=== PATIENT | female | born 1985 ===

== ENCOUNTER 2020-03-17 09:11 | Outpatient (REF) | payer OTHER, SELFPAY ==
[2020-03-17 15:02] LABS: CT PCR NOT DETECTED (Not Detect.); NG PCR NOT DETECTED (Not Detect.)
[2020-03-18 08:46] LABS: BV Int Neg Control Negative (Negative); BV Int Pos Control Positive (Positive)
== END 2020-03-17 09:12 | disposition home or self-care (01) ==
LOC: HO.LAB 09:11
PROVIDERS: Visit Provider Advanced Practice Midwife
DX: N76.0 Acute vaginitis (principal); Z20.2 Contact with and (suspected) exposure to infections with a predominantly sexual mode of transmission
CPT/HCPCS: 87480; 87491; 87510; 87591; 87660; 99212

== ENCOUNTER 2020-04-05 13:44 | Outpatient (REF) | payer OTHER, SELFPAY | END 2020-04-05 13:45 | disposition home or self-care (01) | LOC: HO.LAB 13:44 | PROVIDERS: Visit Provider Internal Medicine | DX: Z20.828 Contact with and (suspected) exposure to other viral communicable diseases (principal) | CPT/HCPCS: C9803; U0003 ==

== ENCOUNTER → 2020-08-20 12:05 | Outpatient (BNVA) | payer OTHER, SELFPAY | PROVIDERS: PCP Nurse Practitioner Family; Visit Provider Obstetrics & Gynecology | DX: Z30.09 Encounter for other general counseling and advice on contraception (principal); N76.0 Acute vaginitis | CPT/HCPCS: 99202 ==

== ENCOUNTER → 2020-08-23 11:00 | Outpatient (BNVA) | payer OTHER, SELFPAY | PROVIDERS: PCP Nurse Practitioner Family; Visit Provider Obstetrics & Gynecology | DX: Z30.42 Encounter for surveillance of injectable contraceptive (principal) | CPT/HCPCS: 96372; 99211; J1050 ==

== ENCOUNTER 2020-09-28 08:55 | Outpatient (REF) | payer OTHER, SELFPAY ==
[2020-09-29 11:24] LABS: BV Int Neg Control Negative (Negative); BV Int Pos Control Positive (Positive)
[2020-09-29 12:05] LABS: CT PCR NOT DETECTED (Not Detect.); NG PCR NOT DETECTED (Not Detect.)
[2020-10-02 09:57] LABS: HPV mRNA E6/E7 rflx Not Detected (Not Detected)
== END 2020-09-28 08:56 | disposition home or self-care (01) ==
LOC: HO.LAB 08:55
PROVIDERS: PCP Nurse Practitioner Family; Visit Provider Obstetrics & Gynecology
DX: Z01.419 Encounter for gynecological examination (general) (routine) without abnormal findings (principal); Z11.3 Encounter for screening for infections with a predominantly sexual mode of transmission; Z11.51 Encounter for screening for human papillomavirus (HPV); Z71.6 Tobacco abuse counseling
CPT/HCPCS: 87480; 87491; 87510; 87591; 87624; 87660; 88142

== ENCOUNTER → 2020-11-03 10:30 | Outpatient (BNVA) | payer OTHER, SELFPAY | PROVIDERS: PCP Nurse Practitioner Family; Visit Provider Obstetrics & Gynecology | DX: N63.12 Unspecified lump in the right breast, upper inner quadrant (principal); F17.210 Nicotine dependence, cigarettes, uncomplicated; Z98.51 Tubal ligation status | CPT/HCPCS: 99212 ==

== ENCOUNTER → 2020-11-09 10:43 | Outpatient (BNVA) | payer OTHER, SELFPAY | PROVIDERS: PCP Nurse Practitioner Family; Visit Provider Obstetrics & Gynecology ==

== ENCOUNTER 2021-01-03 08:58 | Outpatient (REF) | payer OTHER, SELFPAY ==
--- NOTE | ~2021-01-03 | MM_ITS ---
EXAMINATION: MM DIAGNOSTIC DIGITAL BREAST TOMOSYNTHESIS, BILATERAL US DIAGNOSTIC ULTRASOUND BREAST, BILATERAL CLINICAL INFORMATION: 35-year-old with recent palpable fullness upper inner right breast, now resolved. No prior breast imaging. No known family history breast cancer. The lifetime risk of breast cancer based on the Tyrer-Cuzick Model is 9%. COMPARISON: None (current study represents initial baseline exam). TECHNIQUE: Digital breast tomosynthesis is performed in both the craniocaudal and mediolateral oblique views along with computer-aided detection (CAD). Synthesized 2D images are generated from the tomosynthesis. Additional views are obtained: Bilateral exaggerated CC, magnification right CC x2, magnification right ML. Ultrasound of each breast is performed using grayscale imaging and color Doppler without and with harmonics. Imaging left breast is targeted to the upper outer quadrants. Imaging right breast is targeted to the upper inner quadrant and outer quadrant. FINDINGS: The breasts are heterogeneously dense, which may obscure small masses (ACR BI-RADS breast composition Category c). There is underlying fibrocystic parenchymal pattern with scattered benign-appearing small scattered rounded areas of benign parenchymal asymmetry. There is no architectural abnormality. The axilla and skin contours are unremarkable. There is dominant nodularity mid upper outer left breast best appreciated on tomography measuring approximately 1.3 cm with smooth partly obscured margins. There is dominant nodularity mid outer right breast approximately 1.2 cm with smooth partly obscured margins. There are scattered calcifications in both breasts. The left calcifications are scattered and lesser in number predominantly upper outer quadrant and appear benign. The right breast calcifications are greater number, benign scattered in the retroareolar and upper outer quadrant with loose grouping posterior upper inner right breast. Additional magnification views show calcifications to be similar uniform punctate round and many show benign layering on the ML view. There is one benign square calcification upper inner quadrant. Ultrasound left breast demonstrates dominant simple cyst 2:00 position 6 cm from nipple measuring 1.9 by 1.7 x 1.1 cm. There are scattered other subcentimeter cysts in the targeted area. No solid mass or architectural abnormality. Ultrasound right breast demonstrates a dominant simple cyst 9:00 position 4 cm from nipple measuring 1.4 x 1.1 x 0.9 cm. There are other smaller scattered subcentimeter cysts in the targeted areas. No solid mass or architectural abnormality. Results are discussed with the patient at time of visit. There are benign fibrocystic changes with unremarkable cysts on targeted ultrasound. The right breast calcifications are more numerous, likely benign given the magnification views and bilateral involvement. Right breast calcifications will be reassessed again in 6 months with diagnostic right mammography. MM/MM tomosynthesis diagnostic BI IMPRESSION: 1. Bilateral fibrocystic changes. Bilateral simple cysts on ultrasound. 2. Probable benign calcifications right breast. Benign calcifications on left. ASSESSMENT: BI-RADS 3: Probably Benign RECOMMENDATION: Diagnostic right mammography in 6 months to include magnification views. This patient's information was entered into a reminder system with a target due date for their next mammogram.
--- NOTE | ~2021-01-03 | XR_ITS ---
EXAMINATION: XR FINGER, RIGHT CLINICAL INFORMATION: Pain in right finger COMPARISON: None TECHNIQUE: 3 views of the right fourth finger. FINDINGS: There is no visible fracture or dislocation. There is no subluxation. There is minimal dorsal PIP joint soft tissue swelling.. XR/XR finger RT min 2V IMPRESSION: Unremarkable right fourth finger exam except for minimal dorsal PIP joint fourth digit soft tissue swelling
== END 2021-01-03 08:59 | disposition home or self-care (01) ==
LOC: HO.MAMMO 08:58
PROVIDERS: PCP Nurse Practitioner Family; Referring Provider Hospitalist; Visit Provider Obstetrics & Gynecology
DX: M79.644 Pain in right finger(s) (principal); N64.89 Other specified disorders of breast
CPT/HCPCS: 73140; 76642; 77062; 77066

== ENCOUNTER → 2021-02-28 15:33 | Outpatient (BNVA) | payer OTHER, SELFPAY | PROVIDERS: Visit Provider Advanced Practice Midwife ==

== ENCOUNTER 2021-03-05 01:30 | Emergency (ER) | payer OTHER, SELFPAY ==
[2021-03-05 01:41] VITALS: BP 122/49; PULSE 91; RESP 16; TEMP 37; O2SAT 94; BMI 26.2
--- NOTE | 2021-03-05 01:58 | ED_ITS ---
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 Patient states her complaints started 5 months ago. Also, patient has noted that she has more bilateral lower extremity edema. Patient denies chest pain, no shortness of breath Related Data Previous Rx's Medication Instructions Recorded metronidazole 500 mg tablet 500 mg PO BID 14 Days #28 tab 03/17/20 (Flagyl) medroxyprogesterone 150 mg/mL 150 mg IM [id number] #1 ml 08/20/20 intramuscular suspension metronidazole 500 mg tablet 500 mg PO BID #10 tab 08/20/20 metronidazole 500 mg tablet 500 mg PO .COMPLEX #48 tab 09/28/20 metronidazole 500 mg tablet 500 mg PO BID 7 Days #14 tab 09/30/20 (Flagyl) nicotine 14 mg/24 hr daily 1 patch TRANSDERMAL Q24H #28 ea 11/09/20 transdermal patch dexamethasone 4 mg tablet 4 mg PO .COMPLEX #18 tab 01/03/21 acyclovir 400 mg tablet 400 mg PO TID 7 Days #21 tab 02/25/21 metronidazole 500 mg tablet 500 mg PO Q12H 7 Days #14 tab 02/28/21 Allergies Allergy/AdvReac Type Severity Reaction Status Date / Time No Known Allergies Allergy Verified 02/28/21 15:34 Review of Systems Review of Systems: Constitutional : No Weight loss, No Fever, No Chills, No Night Sweats, No Fatigue, No Malaise ENT/Mouth : No Hearing loss, No Ear Pain, No Nasal Congestion, No Sinus Pain, No Hoarseness, No sore throat, No Rhinorrhea, No Swallowing Difficulty Eyes: No Eye Pain, No Swelling, No Redness, No Foreign Body, No Discharge, No Vision Changes Cardiovascular : No Chest Pain, No SOB, No Dyspnea on Exertion, No Orthopnea, No Edema, No Palpitations Respiratory : No Cough, No Sputum, No Wheezing, No Smoke Exposure, No Dyspnea Gastrointestinal : No Nausea, No Vomiting, No Diarrhea, No Constipation, No abdominal Pain, No Hematochezia, No Melena Genitourinary : no irregular bleeding, No Dysuria, No Urinary Frequency, No H ematuria, No Urinary Incontinence, No Urgency, No Flank Pain, No Urinary Flow Changes, No Hesitancy Musculoskeletal : Chronic bilateral hand and arm pain, chronic bilateral lower extremity pain, lower extremity bilateral edema, complaining of Myalgias in arms and legs for 5 months No Joint Swelling Skin : No Skin Lesions, No rash Neuro : No Weakness, No Numbness, No Paresthesias, No Loss of Consciousness, No Dizziness, No Headache Psych : No Anxiety/Panic, No Depression, No SI/HI/AH/VH, No Social Issues, Heme/Lymph: No Bruising, No Bleeding,No Lymphadenopathy Endocrine : No Polyuria, No Polydipsia, No Temperature Intolerance PMFSH Past Medical History Medical History Abnormal uterine bleeding (AUB) Hx of abnormal cells from cervix Hx of Western blot negative for herpes simplex virus Numbness and tingling in both hands Surgical History Hx of section Hx of tubal ligation Family History Family History Father Rectal cancer Mother History of fibromyalgia Diabetes mellitus Maternal Grandmother Diabetes mellitus Abdominal aortic aneurysm Rheumatoid arthritis Paternal Aunt Cervical cancer Social History Social History Alcohol intake: current Alcohol intake frequency: a few times a month Cigarettes Per Day: 10 Advance Directives: No Patient : No Gender identity: Female Physical Exam Vital Signs: Vital Signs: Last Vital Signs Temp 98.6 F 03/05/21 01:41 Pulse 91 03/05/21 01:41 Resp 16 03/05/21 01:41 BP 122/49 L 03/05/21 01:41 Pulse Ox 94 03/05/21 01:41 Body Mass Index 26.2 Const: Other: Appearance: Alert. Oriented X3. No acute distress. Eyes: Pupils equal, round and reactive to light. ENT: Pharynx normal. Neck: Normal inspection. Neck supple. No lymph nodes noted. No crepitus CVS: Normal heart rate and rhythm. Pulses normal. Normal S1 and S2 Respiratory: No respiratory distress. Breath sounds normal. No Wheezing. No rales Abdomen: Soft and nontender. No rigidity. No distention. good BS x4 Skin: Skin warm and dry. Normal skin color. Normal skin turgor. Extremities: Bilateral +1 pitting edema No Lacerations. No Rash, patient is able to move all extremities with normal range of motion Neuro: Oriented X 3. No motor deficit. No sensory deficit. Moving all extermities. No slurred speech. Course Course Course Narrative: Discussed the labs with the patient, no acute findings. I discussed with the patient that she would benefit from a referral to Rheumatology. Patient requested an IM injection of Toradol. Patient instructed not to take ibuprofen for the next 4 days Medical Decision Making Lab Data Result diagrams: 03/05/21 01:58 03/05/21 01:58 Labs: Lab Results 03/05/21 03/05/21 03/05/21 Range/Units 01:58 01:58 01:58 WBC 6.7 (4.8-10.8) X10*3/uL RBC 3.91 L (4.20-5.50) X10*6/uL Hgb 11.3 L (12.0-16.0) g/dl Hct 34.7 L (37-47) % MCV 88.7 (80-98) fL MCH 28.9 (27.0-33.0) pg MCHC 32.6 (31.0-35.0) g/dl RDW 12.0 (11.0-16.0) % Plt Count 264 (160-400) X10*3/uL MPV 10.5 (9.4-12.3) fL Immature Gran % (Auto) 0.3 (0.0-0.4) % Neut % (Auto) 59.3 (45-73) % Lymph % (Auto) 27.4 (20-40) % [place] % (Auto) 11.9 H (2-11) % Eos % (Auto) 1.0 (0-4) % Baso % (Auto) 0.1 (0-2) % Lymph # (Auto) 1.9 (1.2-4.9) X10*3/uL [place] # (Auto) 0.8 (0.1-1.2) X10*3/uL Eos # (Auto) 0.1 (0.0-0.4) X10*3/uL Baso # (Auto) 0.0 (0.0-0.2) X10*3/uL Abs Immat Gran (auto) 0.02 (0.00-0.03) X10*3/uL Absolute Neuts (auto) 4.0 (2.0-8.3) X10*3/uL Absolute Nucleated RBC 0.000 (0.0-0.012) X10*3/uL Nucleated RBC % (auto) 0.0 (0.0-0.2) /100WBC ESR 18 (0-20) MM/HR Sodium 137 (135-145) mmol/L Potassium 3.9 (3.3-5.1) mmol/L Chloride 105 (96-108) mmol/L Carbon Dioxide 24 (22-29) mmol/L Anion Gap 12 (12-20) BUN 12 (9-16) mg/dL Creatinine 0.67 (0.5-1.4) mg/dL Estim Creat Clear Calc 116.3 Estimated GFR > 60 Random Glucose 113 (60-115) mg/dL Calcium 9.1 (8.4-10.2) mg/dL Total Bilirubin 0.2 (0.0-1.0) mg/dL Direct Bilirubin < 0.2 (0.0-0.5) mg/dL AST 36 H (5-31) U/L ALT 67 H (0-31) U/L Alkaline Phosphatase 49 (39-117) U/L C-Reactive Protein 0.22 (< or = 0.50) mg/dL B-Natriuretic Peptide (<100) pg/mL Total Protein 5.9 L (6.5-8.0) g/dL Albumin 3.7 (3.5-5.0) g/dL 03/05/21 Range/Units 01:58 WBC (4.8-10.8) X10*3/uL RBC (4.20-5.50) X10*6/uL Hgb (12.0-16.0) g/dl Hct (37-47) % MCV (80-98) fL MCH (27.0-33.0) pg MCHC (31.0-35.0) g/dl RDW (11.0-16.0) % Plt Count (160-400) X10*3/uL MPV (9.4-12.3) fL Immature Gran % (Auto) (0.0-0.4) % Neut % (Auto) (45-73) % Lymph % (Auto) (20-40) % [place] % (Auto) (2-11) % Eos % (Auto) (0-4) % Baso % (Auto) (0-2) % Lymph # (Auto) (1.2-4.9) X10*3/uL [place] # (Auto) (0.1-1.2) X10*3/uL Eos # (Auto) (0.0-0.4) X10*3/uL Baso # (Auto) (0.0-0.2) X10*3/uL Abs Immat Gran (auto) (0.00-0.03) X10*3/uL Absolute Neuts (auto) (2.0-8.3) X10*3/uL Absolute Nucleated RBC (0.0-0.012) X10*3/uL Nucleated RBC % (auto) (0.0-0.2) /100WBC ESR (0-20) MM/HR Sodium (135-145) mmol/L Potassium (3.3-5.1) mmol/L Chloride (96-108) mmol/L Carbon Dioxide (22-29) mmol/L Anion Gap (12-20) BUN (9-16) mg/dL Creatinine (0.5-1.4) mg/dL Estim Creat Clear Calc Estimated GFR Random Glucose (60-115) mg/dL Calcium (8.4-10.2) mg/dL Total Bilirubin (0.0-1.0) mg/dL Direct Bilirubin (0.0-0.5) mg/dL AST (5-31) U/L ALT (0-31) U/L Alkaline Phosphatase (39-117) U/L C-Reactive Protein (< or = 0.50) mg/dL B-Natriuretic Peptide 13 (<100) pg/mL Total Protein (6.5-8.0) g/dL Albumin (3.5-5.0) g/dL Discharge Plan Discharge Clinical Impression: Bilateral lower extremity edema, Myalgia Patient Disposition: Home, Self-Care Instructions: Leg Edema (ED), Musculoskeletal Pain (ED) Additional Instructions: Please buy [id number] compression stockings and wear them as long as you can, especially when you are at work. At night to try to keep your legs elevated. Please follow-up with her primary care physician, you may benefit from a referral to Rheumatology. Please follow-up with your primary care physician tomorrow. If you have any worsening or new symptoms, please return to the emergency room or call 911 Prescriptions: No Action metronidazole [Flagyl] 500 mg tablet 500 mg PO BID 7 Days Qty: 14 RF: 0 acyclovir 400 mg tablet 400 mg PO TID 7 Days Qty: 21 RF: 0 dexamethasone 4 mg tablet 4 mg PO .COMPLEX Qty: 18 RF: 0 metronidazole [Flagyl] 500 mg tablet 500 mg PO BID 14 Days Qty: 28 RF: 1 metronidazole 500 mg tablet 500 mg PO .COMPLEX Qty: 48 RF: 1 medroxyprogesterone 150 mg/mL suspension 150 mg IM [id number] Qty: 1 RF: 3 metronidazole 500 mg tablet 500 mg PO BID Qty: 10 RF: 0 nicotine 14 mg/24 hr patch 24 hour 1 patch transdermal Q24H Qty: 28 RF: 0 metronidazole 500 mg tablet 500 mg PO Q12H 7 Days Qty: 14 RF: 0
[2021-03-05 02:03] LABS: MANUAL DIFF FLAG NO
[2021-03-05 02:21] LABS: Basophils Percent Auto 0.1 % (0-2); Eosinophils Absolute Auto 0.1 X10*3/uL (0.0-0.4); Hematocrit 34.7 % (37-47); Hemoglobin 11.3 g/dl (12.0-16.0); Imm Gran Abs Auto 0.02 X10*3/uL (0.00-0.03); Imm Gran Pct Auto 0.3 % (0.0-0.4); Lymphocytes Absolute Auto 1.9 X10*3/uL (1.2-4.9); Lymphocytes Percent Auto 27.4 % (20-40); Mean Corpuscular HGB Conc 32.6 g/dl (31.0-35.0); Mean Corpuscular Hemoglobin 28.9 pg (27.0-33.0); Mean Corpuscular Volume 88.7 fL (80-98); Mean Platelet Volume 10.5 fL (9.4-12.3); Monocytes Absolute Auto 0.8 X10*3/uL (0.1-1.2); Monocytes Percent Auto 11.9 % (2-11); Neutrophils Percent Auto 59.3 % (45-73); Platelet Count 264 X10*3/uL (160-400); Red Blood Count 3.91 X10*6/uL (4.20-5.50); White Blood Count 6.7 X10*3/uL (4.8-10.8)
[2021-03-05 02:40] LABS: Alanine Aminotransferase 67 U/L (0-31); Albumin Level 3.7 g/dL (3.5-5.0); Alkaline Phosphatase 49 U/L (39-117); Anion Gap 12 (12-20); Aspartate Amino Transferase 36 U/L (5-31); Bilirubin Direct < 0.2 mg/dL (0.0-0.5); Bilirubin Total 0.2 mg/dL (0.0-1.0); Blood Urea Nitrogen 12 mg/dL (9-16); C Reactive Protein 0.22 mg/dL (< or = 0.50); Calcium 9.1 mg/dL (8.4-10.2); Carbon Dioxide 24 mmol/L (22-29); Chloride 105 mmol/L (96-108); Creatinine Clr Calc Pharmacy 116.3; Estimated Glomerular Filt Rate > 60; Glucose Random 113 mg/dL (60-115); Potassium 3.9 mmol/L (3.3-5.1); Sodium 137 mmol/L (135-145); Total Protein 5.9 g/dL (6.5-8.0)
[2021-03-05 02:41] LABS: B Type Natriuretic Peptide 13 pg/mL (<100)
[2021-03-05 03:06] LABS: Erythrocyte Sedimentation Rate 18 MM/HR (0-20)
[2021-03-05] MEDS: Ketorolac Tromethamine 60 MG/2 ML VIAL IM (03:22)
[2021-03-05 03:25] VITALS: BP 106/47; PULSE 71; RESP 16; TEMP 36.7; O2SAT 100
[2021-03-07 21:42] LABS: Lyme Blot 1.07 index
[2021-03-08 11:04] LABS: Lyme Abs Screen EQUIVOCAL
[2021-03-10 13:36] LABS: 18 KD (IgG) Band NON-REACTIVE; 23 KD (IgG) Band NON-REACTIVE; 23 KD (IgM) Band NON-REACTIVE; 28 KD (IgG) Band REACTIVE; 30 KD (IgG) Band NON-REACTIVE; 39 KD (IgM) Band NON-REACTIVE; 41 KD (IgM) Band NON-REACTIVE; 45 KD (IgG) Band NON-REACTIVE; 58 KD (IgG) Band REACTIVE; 66 KD (IgG) Band NON-REACTIVE; 93 KD (IgG) Band REACTIVE; Lyme IgG Blot Interp POSITIVE (NEGATIVE); Lyme IgM Blot Interp NEGATIVE (NEGATIVE)
== END 2021-03-05 03:43 | disposition home or self-care (01) ==
PROVIDERS: Emergency Provider Emergency Medicine; PCP Nurse Practitioner Family
DX: R60.0 Localized edema (principal); M79.10 Myalgia, unspecified site; Z79.899 Other long term (current) drug therapy
CPT/HCPCS: 36415; 80048; 80076; 83880; 85025; 85652; 86140; 86617; 86618; 96372; 99284; J1885

== ENCOUNTER 2021-03-16 08:57 | Outpatient (REF) | payer OTHER, SELFPAY ==
--- NOTE | 2021-03-16 08:59 | EMG_ITS ---
This is a 35-year-old woman with a 6-month history of increased symptoms in both hands of pain and tingling. She is on no medications. PHYSICAL EXAMINATION: On examination, she is alert and oriented. Normal intellectual functions. Cranial nerves II through XII are normal. Muscle tone and strength normal. No Tinel or Phalen sign. IMPRESSION: Rule out carpal tunnel syndrome. Nerve conduction EMG study: Normal electrodiagnostic study of both upper extremities with no evidence of carpal tunnel syndrome or nerve entrapment. Normal EMG of left C5-T1 innervated muscles. MD MAXX He/SRIRAM / [id number]
== END 2021-03-16 08:58 | disposition home or self-care (01) ==
LOC: HO.NEURO 08:57
PROVIDERS: Visit Provider Nurse Practitioner Family
DX: R20.0 Anesthesia of skin (principal); R20.2 Paresthesia of skin
CPT/HCPCS: 95885; 95913

== ENCOUNTER 2021-04-12 14:39 | Outpatient (REF) | payer OTHER, SELFPAY ==
--- NOTE | ~2021-04-12 | CT_ITS ---
EXAMINATION: CT ABDOMEN AND PELVIS WITH CONTRAST CLINICAL INFORMATION: Abnormal uterine and vaginal bleeding. COMPARISON: None TECHNIQUE: Multidetector volumetric images were obtained from the superior aspect of the liver through the pubic symphysis following administration 85 mL of Omnipaque 350 intravenous contrast. Sagittal and coronal reformatted images were obtained on the technologist's workstation. Oral contrast: No This CT examination was performed using dose optimization techniques as appropriate, variously including the following: *Automated exposure control *Adjustment of mA and/or kV according to patient size (this includes techniques or standardized protocols for targeted exams where dose is matched to indication/reason for exam; i.e. extremities or head) *Use of iterative reconstruction technique DLP: 502 mGy-cm FINDINGS: LUNG BASES: The visualized lung bases are unremarkable. LIVER, GALLBLADDER, AND BILIARY TREE: The liver is normal in size, shape, and attenuation. No focal hepatic lesion or biliary ductal dilatation is present. The gallbladder is contracted and appears unremarkable. PANCREAS: Unremarkable. SPLEEN: The spleen is unremarkable. There is a small accessory splenule below the hilum. ADRENAL GLANDS: Unremarkable. KIDNEYS AND URETERS: The kidneys are normal in size, shape, and attenuation. No hydronephrosis, hydroureter, or calculi seen. No perinephric stranding. BLADDER: Unremarkable. GASTROINTESTINAL TRACT: There is scattered stool and gas seen throughout the colon without any significant distention. There is fecalization of the distal ileum, nonspecific but felt to be due to stasis. Appendix is not visualized. No inflammatory process is seen in the abdomen. ABDOMINAL WALL: No significant hernia is appreciated. LYMPH NODES: Normal. VASCULAR: Unremarkable. PELVIC VISCERA: The uterus is anteverted with dense calcification or jason along the left fundus. There is a 3.0 x 2.2 cm cyst of the left ovary. OSSEOUS STRUCTURES: Unremarkable. CT/CT abdomen pelvis w con IMPRESSION: 3 cm cyst, left ovary. Surgical jason are on top of the left uterine fundus, question previous intervention. Moderate constipation.
[2021-04-12] MEDS: iohexoL 350 MG/ML 100 ML INFUS..BTL IV (16:03)
== END 2021-04-12 14:40 | disposition home or self-care (01) ==
LOC: HO.CT 14:39
PROVIDERS: Visit Provider Advanced Practice Midwife
DX: N93.9 Abnormal uterine and vaginal bleeding, unspecified (principal)
CPT/HCPCS: 74177; Q9967

== ENCOUNTER 2021-04-18 09:06 | Outpatient (REF) | payer OTHER, SELFPAY ==
[2021-04-18 11:45] LABS: MANUAL DIFF FLAG NO
[2021-04-18 11:50] LABS: Basophils Percent Auto 0.3 % (0-2); Eosinophils Absolute Auto 0.1 X10*3/uL (0.0-0.4); Hematocrit 38.4 % (37.0-47.0); Hemoglobin 12.2 g/dl (12.0-16.0); Imm Gran Abs Auto 0.02 X10*3/uL (0.00-0.03); Imm Gran Pct Auto 0.3 % (0.0-0.4); Lymphocytes Absolute Auto 1.6 X10*3/uL (1.2-4.9); Lymphocytes Percent Auto 26.1 % (20-40); Mean Corpuscular HGB Conc 31.8 g/dl (31.0-35.0); Mean Corpuscular Volume 88.3 fL (80.0-98.0); Mean Platelet Volume 11.5 fL (9.4-12.3); Monocytes Absolute Auto 0.5 X10*3/uL (0.1-1.2); Monocytes Percent Auto 7.4 % (2-11); Neutrophils Percent Auto 64.9 % (45-73); Platelet Count 296 X10*3/uL (160-400); Red Blood Count 4.35 X10*6/uL (4.20-5.50); Red Cell Distribution Width 12.3 % (11.0-16.0); White Blood Count 6.2 X10*3/uL (4.8-10.8)
[2021-04-18 12:17] LABS: Alanine Aminotransferase 30 U/L (0-31); Alkaline Phosphatase 60 U/L (39-117); Anion Gap 12 (12-20); Aspartate Amino Transferase 18 U/L (5-31); Bilirubin Total 0.3 mg/dL (0.0-1.0); Blood Urea Nitrogen 18 mg/dL (9-16); C Reactive Protein 0.85 mg/dL (< or = 0.50); Calcium 9.6 mg/dL (8.4-10.2); Carbon Dioxide 23 mmol/L (22-29); Chloride 108 mmol/L (96-108); Estimated Glomerular Filt Rate > 60; Glucose Fasting 91 mg/dL (60-99); Potassium 4.7 mmol/L (3.3-5.1); Sodium 138 mmol/L (135-145); Total Protein 6.8 g/dL (6.5-8.0)
[2021-04-18 12:29] LABS: Erythrocyte Sedimentation Rate 23 MM/HR (0-20)
[2021-04-18 12:38] LABS: Vitamin B12 189 pg/mL (200-900)
[2021-04-18 12:39] LABS: Rheumatoid Factor < 15.0 IU/mL (<15.0); TSH reflex Free T4 0.01 uIU/mL (0.32-4.0)
[2021-04-18 13:30] LABS: Free T4 (Free Thyroxine) 0.85 ng/dL (0.71-1.85)
[2021-04-20 12:57] LABS: Anti Nuclear Antibody Screen NEGATIVE (NEGATIVE)
[2021-04-21 03:42] LABS: Cyclic Citrullinated Peptide <16 UNITS
== END 2021-04-18 09:07 | disposition home or self-care (01) ==
LOC: HO.HMGCLDS 09:06
PROVIDERS: PCP Nurse Practitioner Family; Visit Provider Nurse Practitioner Family
DX: R20.0 Anesthesia of skin (principal); R20.2 Paresthesia of skin
CPT/HCPCS: 36415; 80053; 82607; 82746; 84439; 84443; 85025; 85652; 86038; 86039; 86140; 86200; 86431

== ENCOUNTER 2021-04-19 09:16 | Outpatient (REF) | payer OTHER, SELFPAY ==
[2021-04-19 12:35] LABS: Free T4 (Free Thyroxine) 0.86 ng/dL (0.71-1.85); Thyroid Stimulating Hormone 0.01 uIU/mL (0.32-4.0)
[2021-04-21 05:31] LABS: Triiodothyronine T3 Free 3.7 pg/mL (2.3-4.2)
[2021-04-21 05:40] LABS: Thyroid Peroxidase Antibodies 249 IU/mL (<9)
[2021-04-23 19:07] LABS: Thyrotropin Receptor Antibody 15.68 IU/L (<=2.00)
[2021-04-23 23:47] LABS: Methylmalonic Acid 195 nmol/L (87-318)
[2021-04-23 23:50] LABS: Parietal Cell Antibody 100.9 Unit (<=20.0)
[2021-04-24 22:26] LABS: Intrinsic Factor Antibodies Equivocal (Negative)
== END 2021-04-19 09:17 | disposition home or self-care (01) ==
LOC: HO.HMGCLDS 09:16
PROVIDERS: PCP Nurse Practitioner Family; Visit Provider Nurse Practitioner Family
DX: R10.2 Pelvic and perineal pain (principal); R79.89 Other specified abnormal findings of blood chemistry; E53.8 Deficiency of other specified B group vitamins; G89.29 Other chronic pain; N83.202 Unspecified ovarian cyst, left side
CPT/HCPCS: 36415; 83516; 83520; 83921; 84439; 84443; 84481; 86340; 86376

== ENCOUNTER 2021-06-05 14:29 | Emergency (ER) | payer OTHER, SELFPAY ==
[2021-06-05 14:50] VITALS: BP 141/62; PULSE 88; TEMP 36.8; O2SAT 97; BMI 27.1
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
[2021-06-05] MEDS: Ibuprofen 800 MG TABLET PO (15:44)
== END 2021-06-05 15:51 | disposition home or self-care (01) ==
PROVIDERS: Emergency Provider Emergency Medicine; PCP Nurse Practitioner Family
DX: T25.212A Burn of second degree of left ankle, initial encounter (principal); T31.0 Burns involving less than 10% of body surface; M25.572 Pain in left ankle and joints of left foot; X11.8XXA Contact with other hot tap-water, initial encounter; Y93.9 Activity, unspecified; Y92.9 Unspecified place or not applicable; Y99.9 Unspecified external cause status; Z79.899 Other long term (current) drug therapy
CPT/HCPCS: 16020; 99283

== ENCOUNTER 2021-07-04 11:14 | Outpatient (REF) | payer OTHER, SELFPAY ==
--- NOTE | ~2021-07-04 | US_ITS ---
EXAMINATION: US PELVIS CLINICAL INFORMATION: Left ovarian cyst COMPARISON: Previous pelvic ultrasound April [address] of the abdomen and pelvis March 2021 TECHNIQUE: Ultrasound of the pelvis is performed using both transabdominal and transvaginal transducers along with Doppler. Transvaginal imaging is performed due to inadequate visualization transabdominally. FINDINGS: The uterus is anteverted and measures 6.4 x 3.3 x 4.1 cm in dimension. There are parallel linear echogenic densities seen in the peripheral bilateral uterine fundus likely related to Essure device. No focal uterine lesion is seen. Endometrial thickness is normal measuring 0.3 cm. The ovaries are normal-appearing. The right ovary measures 4.5 x 1.9 x 2.2 cm. The left ovary measures 3.4 x 1.3 x 3.2 cm. No ovarian cyst is seen. There is no fluid in the pelvis. US/US pelvic and transvaginal IMPRESSION: No ovarian cyst seen.
== END 2021-07-04 11:15 | disposition home or self-care (01) ==
LOC: HO.US 11:14
PROVIDERS: Visit Provider Advanced Practice Midwife
DX: N83.202 Unspecified ovarian cyst, left side (principal)
CPT/HCPCS: 76830; 76856

== ENCOUNTER 2021-07-08 12:14 | Outpatient (REF) | payer OTHER, SELFPAY ==
--- NOTE | ~2021-07-08 | MM_ITS ---
EXAMINATION: MM DIAGNOSTIC DIGITAL BREAST TOMOSYNTHESIS, BILATERAL CLINICAL INFORMATION: Six-month follow-up right breast calcifications. At time of study the patient complained of left breast pain prior to the examination. The lifetime risk of breast cancer based on the Tyrer-Cuzick Model is 9.7%. COMPARISON: Mammography 01/03/2021. TECHNIQUE: Digital breast tomosynthesis is performed in both the craniocaudal and mediolateral oblique views along with computer-aided detection (CAD). Synthesized 2D images are generated from the tomosynthesis. Spot magnification views of the right breast in craniocaudal and 90 degree mediolateral views were performed. FINDINGS: The breasts are heterogeneously dense, which may obscure small masses (ACR BI-RADS breast composition Category c). There are again noted to be numerous grouped and scattered right breast calcifications without significant change appreciated from study of 01/03/2021. There are numerous essentially stable circumscribed densities present consistent with cysts. No suspicious region of architectural distortion is identified. No Tea-cupping of calcifications is seen on 90 degree mediolateral view. Within the left breast there are multiple partially circumscribed densities present in the vicinity of patient's pain. There is a partially circumscribed density that was shown to represent a cyst previously however there is other adjacent and parenchyma present with other partially circumscribed densities. Ultrasound of the new region of pain was recommended however patient could not stay for the study and has rescheduled for another day. Results are provided to the patient at time of visit by the technologist. MM/MM tomosynthesis diagnostic BI IMPRESSION: Essentially stable calcifications of the right breast. Bilateral circumscribed densities consistent with cysts. Patient unable to stay for ultrasound about the superior aspect of the left breast and has scheduled appointment for another time. ASSESSMENT: BI-RADS 0: Incomplete - Need Additional Imaging Evaluation RECOMMENDATION: Right breast ultrasound.
== END 2021-07-08 12:15 | disposition home or self-care (01) ==
LOC: HO.MAMMO 12:14
PROVIDERS: PCP Nurse Practitioner Family; Visit Provider Nurse Practitioner Family
DX: R92.1 Mammographic calcification found on diagnostic imaging of breast (principal)
CPT/HCPCS: 77062; 77066

== ENCOUNTER 2021-10-07 11:05 | Outpatient (REF) | payer OTHER, SELFPAY ==
[2021-10-11 05:52] LABS: TS Negative Control Passed; TS Panel A 0; TS Panel B 0; TS Positive Control Passed; TSpotTB Negative (Negative)
== END 2021-10-07 11:06 | disposition home or self-care (01) ==
LOC: HO.HMGCLDS 11:05
PROVIDERS: Visit Provider Nurse Practitioner Family
DX: Z11.1 Encounter for screening for respiratory tuberculosis (principal)
CPT/HCPCS: 36415; 86481

== ENCOUNTER 2022-04-03 13:44 | Emergency (ER) | payer OTHER, SELFPAY ==
--- NOTE | ~2022-04-03 | XR_ITS ---
EXAMINATION: LEFT HAND/WRIST. CLINICAL INFORMATION: Pain at the navicular junction. Following fall. COMPARISON: None TECHNIQUE: 4 views. FINDINGS: There is no visible acute fracture, dislocation or subluxation seen. The soft tissues are normal. XR/XR hand wrist LT IMPRESSION: Unremarkable left hand/wrist.
[2022-04-03 14:19] VITALS: BP 136/80; PULSE 78; RESP 16; TEMP 36.6; O2SAT 100; BMI 24.0
[2022-04-03] MEDS: Ibuprofen 600 MG TABLET PO (14:26)
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
[2022-04-03] MEDS: Acetaminophen 325 MG TABLET 650 MG PO (14:27)
--- NOTE | 2022-04-03 14:59 | ED_ITS ---
HPI - Extremity Injury (Upper) General Chief Complaint: Fall Stated Complaint: l hand inj Time Seen by Provider: 04/03/22 14:33 Source: patient Mode of arrival: ambulatory Limitations: no limitations History of Present Illness HPI narrative: 36-year-old female came in for evaluation of right hand injury, patient slipped and fell in the bathroom causing over extending her left thumb patient is complaining of right thumb pain and right hand pain, patient is right hand dominant. Related Data Previous Rx's Medication Instructions Recorded metronidazole 500 mg tablet 500 mg PO BID 14 days #28 tabs 03/17/20 (Flagyl) medroxyprogesterone 150 mg/mL 150 mg IM [id number] #1 mL 08/20/20 intramuscular suspension metronidazole 500 mg tablet 500 mg PO BID #10 tabs 08/20/20 metronidazole 500 mg tablet 500 mg PO .COMPLEX #48 tabs 09/28/20 metronidazole 500 mg tablet 500 mg PO BID 7 days #14 tabs 09/30/20 (Flagyl) nicotine 14 mg/24 hr daily 1 patch transdermal Q24H #28 ea 11/09/20 transdermal patch dexamethasone 4 mg tablet 4 mg PO .COMPLEX #18 tabs 01/03/21 metronidazole 500 mg tablet 500 mg PO Q12H 7 days #14 tabs 02/28/21 gabapentin 300 mg capsule 300 mg PO BEDTIME #30 caps 03/07/21 mecobalamin (vitamin B12) 1,000 1,000 mcg PO DAILY 90 days #90 tabs 04/25/21 mcg chewable tablet (B12 Active) valacyclovir 500 mg tablet 500 mg PO DAILY 30 days #90 tabs 05/11/21 (Valtrex) bacitracin zinc 500 unit/gram 1 appl topical Q8H #28 grams 06/05/21 topical ointment ibuprofen 800 mg tablet 800 mg PO Q8H PRN pain #20 tabs 06/05/21 hydroxyzine pamoate 25 mg capsule 25 mg PO BEDTIME PRN itching #14 12/30/21 (Vistaril) caps ketoconazole 2 % shampoo 1 appl topical 2XW #120 mL 12/30/21 permethrin 5 % topical cream 1 appl topical Q14D 2 doses #60 12/30/21 grams Allergies Allergy/AdvReac Type Severity Reaction Status Date / Time No Known Allergies Allergy Verified 12/30/21 09:47 Review of Systems Review of Systems: All other systems are reviewed and are negative Constitutional: Reports as per HPI and Reports no additional constitutional complaints Eyes: Reports as per HPI and Reports no additional eye complaints Reports system reviewed and no additional complaints, except as documented Cardiovascular: Reports as per HPI and Reports no additional cardiovascular complaints Respiratory: Reports as per HPI and Reports no additional respiratory complaints Gastrointestinal: Reports as per HPI and Reports no additional gastrointestinal complaints Genitourinary: Reports no additional female genitourinary complaints Musculoskeletal: Reports no additional musculoskeletal complaints Skin/Breast: Reports system reviewed and no additional complaints, except as docu Psychiatric: Reports no additional psychiatric complaints Endocrine: Reports no additional endocrine complaints Hematologic/Lymphatic: Reports no additional hematologic/lymphatic complaints Allergic/Immunologic: Reports no additional allergic/immunologic complaints Reports system reviewed and no additional complaints, except as documented and Reports Abnormal speech present [facility] Past Medical History Medical History Abnormal uterine bleeding (AUB) Hx of abnormal cells from cervix Hx of Western blot negative for herpes simplex virus Left ovarian cyst Numbness and tingling in both hands Surgical History Hx of section Hx of tubal ligation Family History Family History Father Rectal cancer Mother History of fibromyalgia Diabetes mellitus Maternal Grandmother Diabetes mellitus Abdominal aortic aneurysm Rheumatoid arthritis Paternal Aunt Cervical cancer Social History Social History Alcohol intake: current Alcohol intake frequency: a few times a month Cigarettes Per Day: 10 Advance Directives: No Advance Directives Information Provided: Yes Gender identity: Female Physical Exam Vital Signs: Vital Signs: Last Vital Signs Temp 98 F 04/03/22 14:19 Pulse 78 04/03/22 14:19 Resp 16 04/03/22 14:19 BP 136/80 04/03/22 14:19 Pulse Ox 100 04/03/22 14:19 O2 Del Method 04/03/22 14:19 BMI result Body Mass Index 24.0 Vital signs have been reviewed as appeared to be correct. Blood pressure normal. Heart rate normal. Respiration rate normal. Temperature normal. Oxygen saturation normal. Appearance: Alert. Oriented X3. No acute distress. Head: Normal external exam. Normocephalic. Atraumatic. No Blanca signs noted. No raccoon eyes noted Eyes: PERRLA. EOMI. Conjunctiva and sclera normal. Eyelids normal. ENT: TM's Normal. Pharynx normal. Uvula midline. Moist mucous membranes. No trismus noted. No drooling noted. No muffled voice noted. Neck: Normal inspection. Neck supple. FROM. No adenopathy. Thyroid Normal. No meningeal signs. No neck mass noted. CVS: Normal heart rate and rhythm. Heart sound normal. No murmurs noted. Pulses normal throughout. Respiratory: No respiratory distress. Painless inspiration. Breath sounds normal. No wheezes/rales/rhonchi noted. Chest nontender. No accessory muscle usage noted or decreased air movement noted. Abdomen: Soft and nontender. Bowel sounds normal in all 4 quadrants. No distention noted. No organomegaly noted. No visible injury noted. Back: No CVA tenderness. Full range of motion noted. Skin: Skin warm and dry. Normal skin color. Normal skin turgor. No rashes/lesions/lacerations noted. Extremities: Tenderness over left thumb, no deformity, full range of motion, neurovascularly intact. Neuro: Oriented X 3. Cranial nerve exam: II-XII are grossly intact No motor deficit. No sensory deficit. Reflexes normal. Course Course Course Narrative: Left thumb contusion due to hyper extension of the thumb, no deformity, normal neurovascular exam, x-ray showing no acute fracture. Will immobilize with brace, NSAIDs, ice. Medications Administered Discontinued Medications Generic Name Dose Route Start Last Admin Trade Name Mirtha PRN Reason Stop Dose Admin Acetaminophen 650 mg 04/03/22 14:23 04/03/22 14:27 Acetaminophen 325 Mg Tablet PO 04/03/22 14:24 650 mg ONCE ONE Administration Ibuprofen 600 mg 04/03/22 14:23 04/03/22 14:26 Ibuprofen 600 Mg Tablet PO 04/03/22 14:24 600 mg ONCE ONE Administration MDM - Extremity Injury (Upper) Imaging Data Left hand x-ray: Attestation: I personally reviewed and interpreted this imaging study as follows: Radiologist's impression: Unremarkable left hand/wrist. Discharge Plan Discharge Clinical Impression: Contusion of hand, left Patient Disposition: Home, Self-Care Instructions: Contusion in Adults (ED) Additional Instructions: Apply ice to the tender area, where the splint at all times, take ibuprofen 200 mg tablets every 6 hours to help with the pain and swelling. Prescriptions: No Action metronidazole [Flagyl] 500 mg tablet 500 mg PO BID 7 Days Qty: 14 0RF Rx Instructions: Take with food, Avoid alcohol and vinegar products gabapentin 300 mg capsule 300 mg PO BEDTIME Qty: 30 0RF B12 Active 1,000 mcg tablet,chewable 1,000 mcg PO DAILY 90 Days Qty: 90 0RF valacyclovir [Valtrex] 500 mg tablet 500 mg PO DAILY 30 Days Qty: 90 2RF bacitracin zinc 500 unit/gram ointment 1 appl topical Q8H Qty: 28 0RF ibuprofen 800 mg tablet 800 mg PO Q8H PRN (Reason: pain) Qty: 20 0RF dexamethasone 4 mg tablet 4 mg PO .COMPLEX Qty: 18 0RF Rx Instructions: 4 mg PO; 1 p.o. t.i.d. x3 days, 1 p.o. b.i.d. x3 days, 1 p.o. daily x3 days permethrin 5 % cream 1 appl topical Q14D Qty: 60 0RF Rx Instructions: apply second treatment 14 days after first treatment if live lice remain hydroxyzine pamoate [Vistaril] 25 mg capsule 25 mg PO BEDTIME PRN (Reason: itching) Qty: 14 0RF ketoconazole 2 % shampoo 1 appl topical 2XW Qty: 120 0RF metronidazole [Flagyl] 500 mg tablet 500 mg PO BID 14 Days Qty: 28 1RF metronidazole 500 mg tablet 500 mg PO .COMPLEX Qty: 48 1RF Rx Instructions: 500 mg PO twice daily two days per week; take this after the initial one week prescription medroxyprogesterone 150 mg/mL suspension 150 mg IM [id number] Qty: 1 3RF metronidazole 500 mg tablet 500 mg PO BID Qty: 10 0RF nicotine 14 mg/24 hr patch 24 hour 1 patch transdermal Q24H Qty: 28 0RF metronidazole 500 mg tablet 500 mg PO Q12H 7 Days Qty: 14 0RF Referrals: Larry Reed, [facility] [Primary Care Provider] - Stand Alone Forms: Work/School Release
== END 2022-04-03 15:59 | disposition home or self-care (01) ==
PROVIDERS: Emergency Provider Emergency Medicine; PCP Nurse Practitioner Family
DX: S60.222A Contusion of left hand, initial encounter (principal); W01.0XXA Fall on same level from slipping, tripping and stumbling without subsequent striking against object, initial encounter; Y93.9 Activity, unspecified; Y92.031 Bathroom in apartment as the place of occurrence of the external cause; Y99.9 Unspecified external cause status
CPT/HCPCS: 29125; 73110; 73130; 99283

== ENCOUNTER 2022-04-10 14:13 | Outpatient (REF) | payer OTHER, SELFPAY ==
[2022-04-10 16:00] LABS: CT PCR NOT DETECTED (Not Detect.); NG PCR NOT DETECTED (Not Detect.)
== END 2022-04-10 14:14 | disposition home or self-care (01) ==
LOC: HO.LNP 14:13
PROVIDERS: Visit Provider Internal Medicine
DX: Z20.9 Contact with and (suspected) exposure to unspecified communicable disease (principal)
CPT/HCPCS: 87491; 87591

== ENCOUNTER 2022-05-10 13:11 | Outpatient (REF) | payer OTHER, SELFPAY ==
[2022-05-11 02:14] LABS: CT PCR NOT DETECTED (Not Detect.); NG PCR NOT DETECTED (Not Detect.)
[2022-05-11 09:19] LABS: BV Int Neg Control Negative (Negative); BV Int Pos Control Positive (Positive)
== END 2022-05-10 13:12 | disposition home or self-care (01) ==
LOC: HO.LNP 13:11
PROVIDERS: PCP Nurse Practitioner Family; Visit Provider Advanced Practice Midwife
DX: Z01.419 Encounter for gynecological examination (general) (routine) without abnormal findings (principal); Z11.3 Encounter for screening for infections with a predominantly sexual mode of transmission; Z72.0 Tobacco use; F41.9 Anxiety disorder, unspecified
CPT/HCPCS: 87480; 87491; 87510; 87591; 87660

== ENCOUNTER 2022-07-17 08:45 | Outpatient (REF) | payer OTHER, SELFPAY ==
--- NOTE | ~2022-07-17 | XR_ITS ---
EXAMINATION: XR LUMBOSACRAL SPINE CLINICAL INFORMATION: Low back pain COMPARISON: October 2016. TECHNIQUE: Three views of the lumbosacral spine. FINDINGS: No evidence for acute lumbar compression fracture. Disc spaces are maintained. There is mild facet arthrosis. Sacrum is grossly intact. XR/XR lumbar spine 2-3V IMPRESSION: No compression fracture or loss of disc space. Mild facet arthrosis.
== END 2022-07-17 08:46 | disposition home or self-care (01) ==
LOC: HO.HMGCX 08:45
PROVIDERS: PCP Nurse Practitioner Family; Visit Provider Nurse Practitioner Family
DX: M54.50 Low back pain, unspecified (principal)
CPT/HCPCS: 72100

== ENCOUNTER → 2022-08-01 09:55 | Outpatient (BNVA) | payer OTHER, SELFPAY | PROVIDERS: PCP Nurse Practitioner Family; Visit Provider Nurse Practitioner Family | DX: M47.26 Other spondylosis with radiculopathy, lumbar region (principal); M62.838 Other muscle spasm; G43.909 Migraine, unspecified, not intractable, without status migrainosus | CPT/HCPCS: 99202 ==

== ENCOUNTER 2022-09-22 08:37 | Outpatient (REF) | payer OTHER, SELFPAY ==
--- NOTE | ~2022-09-22 | MR_ITS ---
EXAMINATION: MR LUMBAR SPINE WITHOUT CONTRAST CLINICAL INFORMATION: Spondylosis without myelopathy or radiculopathy, lumbar region. COMPARISON: None TECHNIQUE: MRI of the lumbar spine was obtained using routine sequences without contrast. FINDINGS: The lumbar vertebral bodies maintain normal heights. There is no disc height loss. No bone marrow edema is seen. Mild disc desiccation is seen at L5-S1. There is no bone marrow edema. The distal spinal cord appears normal. The conus medullaris terminates normally at the L2 level. The extraspinal soft tissues are unremarkable. SPINAL LEVELS: L1-L2: No posterior disc abnormality. No spinal canal or neural foraminal stenosis. L2-L3: No posterior disc abnormality. No spinal canal or neural foraminal stenosis. L3-L4: No posterior disc abnormality. No spinal canal or neural foraminal stenosis. L4-L5: No posterior disc abnormality. Mild facet arthropathy. No spinal canal or neural foraminal stenosis. L5-S1: Small central protrusion. Mild facet arthropathy. No spinal canal or neural foraminal stenosis. MR/MR lumbar spine wo con IMPRESSION: No spinal canal stenosis or nerve root compression identified. Small central protrusion seen at L5-S1. Mild facet arthropathy at L4-L5 and L5-S1.
== END 2022-09-22 08:38 | disposition home or self-care (01) ==
LOC: HO.MRI 08:37
PROVIDERS: PCP Nurse Practitioner Family; Visit Provider Nurse Practitioner Family
DX: M47.816 Spondylosis without myelopathy or radiculopathy, lumbar region (principal)
CPT/HCPCS: 72148

== ENCOUNTER 2023-03-07 14:51 | Outpatient (AMB) | payer OTHER, SELFPAY ==
--- NOTE | 2023-03-07 14:54 | A.OFFPC_ITS ---
Vital Signs 03/07/23 14:56 Height 5 ft 4 in Weight 147 lb BMI 25.2 BP 108/76 Blood Pressure Location Lt brachial Position Sitting Pulse 78 Pulse Source Pulse Oximeter Pulse Oximetry (%) 97 Oxygen Delivery Method Room Air Intake Visit Reasons: Cyst on head/ovaries Allergies No Known Allergies Allergy (Verified 03/07/23 14:56) Tobacco use date assessed: 03/07/23 HPI Cyst on head/ovaries HPI Details Pt c/o left pelvic pain. Pt had a CT of her abdomen in March 2021 which showed a 3cm left ovarian cyst. Will order US and refer to customer care consultant accordingly. Pt reports a cyst to the left side of her head. Will refer to general surgery. Denies fever, chills, and dizziness. Of note: Pt has a Hx of colitis, sees GI. Next colon screen in a couple of weeks. do ? referred pain from this as well. Pt does reports LLQ tenderness as well. [facility], LAT[facility] Medical History (Updated 03/07/23 @ 15:20 by ANNABELLA Luna) Left ovarian cyst Pancolitis Colitis SBO (small bowel obstruction) Bipolar 1 disorder Abnormal uterine bleeding (AUB) Numbness and tingling in both hands Surveillance for Depo-Provera contraception Hx of Western blot negative for herpes simplex virus Hx of abnormal cells from cervix Surgical History Hx of tubal ligation Hx of section Family History Father Rectal cancer Mother History of fibromyalgia Diabetes mellitus Maternal Grandmother Diabetes mellitus Abdominal aortic aneurysm Rheumatoid arthritis Paternal Aunt Cervical cancer Social History Household Members: Children Housing: Apartment Alcohol intake: current Alcohol intake frequency: a few times a month Patient Tobacco Use Status: Current everyday Tobacco user Cigarettes Per Day: 20 Years Smoked: 20 service: No 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al status: employed 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: [employer]ER Sexual orientation: Straight/Heterosexual Gender identity: Female Female Reproductive History Menstrual Age of Menarche: 15 Review of Systems Const Reports as per HPI Physical exam (Primary Care) Vital Signs: Last Vital Signs Pulse 78 03/07/23 14:56 BP 108/76 03/07/23 14:56 Pulse Ox 97 03/07/23 14:56 Oxygen Delivery Method Room Air 03/07/23 14:56 BMI result Body Mass Index 25.2 Tobacco/Smoking Status: Tobacco use Status Tobacco use date assessed 03/07/23 03/07/23 14:59 Patient Tobacco Use Status Current everyday Tobacco 03/07/23 14:55 Const General: cooperative Orientation/consciousness: patient oriented x3 Resp Effort & Inspection: normal respiratory effort Auscultation: clear to auscultation bilaterally Cardio Rate: regular rate Rhythm: regular rhythm Heart sounds: S1 normal heart sound present, S2 normal heart sound present and Murmur heart sound present systolic GI Other: faint TTP of LLQ and left pelvic region Skin Other: left upper head with scalp cyst Neuro General: patient oriented x3 Psych Appearance: grossly normal Mental Status: mental status grossly normal Speech and movement: Normal speech and movement present Affect: normal affect Attitude: cooperative Thought process: Normal thought process present Thought content: Normal thought content present Insight: Good insight present (Psych) Judgement: Good judgement present (Psych) Assessment and Plan Assessment & Plan (1) Dermoid cyst of head: Code(s): D36.7 - Benign neoplasm of other specified sites Plan: Referred to general surgery (2) Left ovarian cyst: Code(s): N83.202 - Unspecified ovarian cyst, left side Plan: US ordered Plan The patient agreed to the use of a medical office coordinator for this encounter. Scribed for ANNABELLA Chacko by Keke Carrion medical office coordinator, on 03/07/2023 at 15:15 EST Orders: Orders US pelvic and transvaginal Today N83.202 - Unspecified ovarian cyst, left side Comprehensive Bandy. Panel Fast Today Z00.00 - Encounter for general adult medical examination without abnormal findings TSH reflex Free T4 Today Z00.00 - Encounter for general adult medical examination without abnormal findings UA CC w/rflx Micro + Cult Today Z00.00 - Encounter for general adult medical examination without abnormal findings Complete Blood Count Auto Diff Today Z00.00 - Encounter for general adult medical examination without abnormal findings Lipid Panel Today Z00.00 - Encounter for general adult medical examination without abnormal findings Referrals General Surgery Referral D36.7 - Benign neoplasm of other specified sites Coding Level of Care Code Est Pt Level 3 (85231) Diagnoses Dermoid cyst of head D36.7 Left ovarian cyst N83.202
[2023-03-07 14:56] VITALS: BP 108/76; PULSE 78; O2SAT 97; BMI 25.2
== END 2023-03-07 15:58 | disposition home or self-care (01) ==
PROVIDERS: PCP Nurse Practitioner Family; Visit Provider Nurse Practitioner Family
DX: D36.7 Benign neoplasm of other specified sites (principal); N83.202 Unspecified ovarian cyst, left side
CPT/HCPCS: 99213

== ENCOUNTER 2023-03-19 10:12 | Outpatient (REF) | payer OTHER, SELFPAY | END 2023-03-19 10:13 | disposition home or self-care (01) | LOC: HO.LNP 10:12 | PROVIDERS: PCP Nurse Practitioner Family; Referring Provider Nurse Practitioner Family; Visit Provider Surgery | DX: L72.11 Pilar cyst (principal) | CPT/HCPCS: 11423; 88304 ==

== ENCOUNTER 2023-03-19 10:12 | Outpatient (AMB) | payer OTHER, SELFPAY ==
--- NOTE | 2023-03-19 10:14 | MHC.OFFVIS ---
Intake Vital Signs 03/19/23 10:16 Height 5 ft 4 in Weight 144 lb BMI 24.7 BP 129/60 Blood Pressure Location Rt brachial Position Sitting Pulse 73 Intake Visit Reasons: Pilar cyst~ Lt scalp Intake Note: Patient referred for cyst on Lt post scalp. Has hx of cyst removals on scalp. Denies bleeding, oozing or pain. 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 His increasing size, and she wished to have removed. Chart was reviewed patient evaluated [facility] Medical History Left ovarian cyst Pancolitis Colitis SBO (small bowel obstruction) Bipolar 1 disorder Abnormal uterine bleeding (AUB) Numbness and tingling in both hands Surveillance for Depo-Provera contraception Hx of Western blot negative for herpes simplex virus Hx of abnormal cells from cervix Surgical History Hx of tubal ligation Hx of section Family History Father Rectal cancer Mother History of fibromyalgia Diabetes mellitus Maternal Grandmother Diabetes mellitus Abdominal aortic aneurysm Rheumatoid arthritis Paternal Aunt Cervical cancer Social History (Updated 03/19/23 @ 10:19 by LAURIE Yeung) Household Members: Children Housing: Apartment Alcohol intake: current Alcohol intake frequency: a few times a month Patient Tobacco Use Status: Current everyday Tobacco user Cigarettes Per Day: 10 Years Smoked: 20 service: No 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al status: employed 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 Office Procedures Excision Details: Risks, benefits alternatives of excision of left posterior scalp Pilar cyst reviewed the patient and included but not limited to bleeding, infection, recurrence, numbness, pain, scarring the patient was to proceed. All questions were answered. Consent was signed. After appropriate positioning, patient's left parietal area underwent 1% lidocaine and Betadine prep. A longitudinal incision was made over the lesion in question and uneventful enucleation of a large sebaceous cyst measuring approximately 3 x 2 cm was performed. Specimen sent to pathology. Wounds irrigated, secured hemostasis, and closed using interrupted 2-0 Prolene suture followed by bacitracin. Patient tolerated procedure well [id number] scalp/neck/hands/feet/genitalia 2.1cm-3cm Procedure code (CPT) selection complete Office Meds lidocaine 1 %-epinephrine 1:100,000 injection solution Performing Provider: Bryce Nagy MD Performing Location: [facility] Sur[facility] Administered by: Bryce Nagy MD on 03/19/23 10:43 Dose Route Admin Location Dispensed Lot Number Expiration Date [facility] Head Athletic Trainer 10 mL Infiltration 10 mL Assessment & Plan Assessment & Plan (1) Pilar cyst of scalp: Code(s): L72.11 - Pilar cyst Plan: Patient has been given local instructions including ice to the wound periodically today and tomorrow, may shower tomorrow, bacitracin to the wound today, and patient will see me in approximately 1.5 weeks time or p.r.n. Orders: Orders AMB Excision Today L72.11 - Pilar cyst Coding Level of Care Code New Pt Level 4 (59931) Diagnoses Pilar cyst of scalp L72.11 CPT Codes Scalp/Neck/Hands/Feet/Genetalia - CPT: 21076-Fatfgrwq scalp/neck/hands/feet/genitalia 2.1cm-3cm ([id number])
[2023-03-19 10:16] VITALS: BP 129/60; PULSE 73; BMI 24.7
== END 2023-03-19 10:44 | disposition home or self-care (01) ==
PROVIDERS: PCP Nurse Practitioner Family; Referring Provider Nurse Practitioner Family; Visit Provider Surgery
DX: L72.11 Pilar cyst (principal)
CPT/HCPCS: 11423

== ENCOUNTER 2023-04-24 13:09 | Outpatient (REF) | payer OTHER, SELFPAY ==
[2023-04-24 16:12] LABS: MANUAL DIFF FLAG NO
[2023-04-24 16:22] LABS: Basophils Percent Auto 0.1 % (0-2); Eosinophils Percent Auto 0.3 % (0-4); Hemoglobin 11.5 g/dl (12.0-16.0); Imm Gran Abs Auto 0.02 X10*3/uL (0.00-0.03); Imm Gran Pct Auto 0.3 % (0.0-0.4); Lymphocytes Absolute Auto 1.5 X10*3/uL (1.2-4.9); Lymphocytes Percent Auto 22.5 % (20-40); Mean Corpuscular HGB Conc 31.9 g/dl (31.0-35.0); Mean Corpuscular Hemoglobin 28.5 pg (27.0-33.0); Mean Corpuscular Volume 89.3 fL (80.0-98.0); Monocytes Absolute Auto 0.3 X10*3/uL (0.1-1.2); Monocytes Percent Auto 4.5 % (2-11); Neutrophils Absolute Auto 4.9 x10*3/uL (2.0-8.3); Neutrophils Percent Auto 72.3 % (45-73); Platelet Count 296 X10*3/uL (160-400); Red Blood Count 4.03 X10*6/uL (4.20-5.50); Red Cell Distribution Width 12.7 % (11.0-16.0); White Blood Count 6.7 X10*3/uL (4.8-10.8)
[2023-04-24 16:39] LABS: Alanine Aminotransferase 13 U/L (0-31); Albumin Level 4.2 g/dL (3.5-5.0); Alkaline Phosphatase 72 U/L (39-117); Anion Gap 13 (12-20); Aspartate Amino Transferase 14 U/L (5-31); Bilirubin Total 0.3 mg/dL (0.0-1.0); Blood Urea Nitrogen 10 mg/dL (9-16); Calcium 9.1 mg/dL (8.4-10.2); Carbon Dioxide 26 mmol/L (22-29); Chloride 108 mmol/L (96-108); Cholesterol 155 mg/dL (<200); Estimated Glomerular Filt Rate > 60; Glucose Fasting 92 mg/dL (60-99); HDL Cholesterol 52 mg/dL (>40); LDL Cholesterol Calculated 92 mg/dL (<100); Potassium 3.7 mmol/L (3.3-5.1); Sodium 143 mmol/L (135-145); Total Protein 7.2 g/dL (6.5-8.0); Triglycerides 59 mg/dL (<150)
[2023-04-24 16:49] LABS: Appearance Urine Cloudy; Color Urine Yellow; Glucose Urine UA Negative (Negative); Leukocyte Esterase Urine Negative (Negative); Nitrite Urine Negative (Negative); UMIC TRIGGER UACC YES; Urine Blood Trace (Negative); Urine Ketones Negative (Negative); Urine Protein Negative (Neg-Trace)
[2023-04-24 16:56] LABS: TSH reflex Free T4 1.31 uIU/mL (0.32-4.0)
[2023-04-24 17:22] LABS: Bacteria Urine 2+ (None Seen); Hyaline Casts Urine 0-2 /LPF (0-2); RBC Urine 0-2 /HPF (0-2); Squamous Epithelial Cell Urine >20 /HPF (0-2); WBC Urine 0-5 /HPF (0-5)
== END 2023-04-24 13:10 | disposition home or self-care (01) ==
LOC: HO.HMGCLDS 13:09
PROVIDERS: PCP Nurse Practitioner Family; Visit Provider Nurse Practitioner Family
DX: Z00.00 Encounter for general adult medical examination without abnormal findings (principal)
CPT/HCPCS: 36415; 80053; 80061; 81001; 81003; 84443; 85025

== ENCOUNTER 2023-04-24 13:26 | Outpatient (AMB) | payer OTHER, SELFPAY ==
--- NOTE | 2023-04-24 13:28 | A.OFFPC_ITS ---
Vital Signs 04/24/23 13:31 Height 5 ft 4 in Weight 150 lb BMI 25.7 BP 120/60 Blood Pressure Location Rt brachial Position Sitting Pulse 83 Pulse Source Pulse Oximeter Pulse Oximetry (%) 98 Oxygen Delivery Method Room Air Intake Visit Reasons: Physical Exam Intake Note: Patient here for Physical exam and would like to talk about getting something for anxiety. Last Mammo: 2021 Colonoscopy: 03/2023-[facility] Allergies No Known Allergies Allergy (Verified 04/24/23 13:32) Medication List - Last Reconciled 04/24/23 by ANNABELLA Luna No Known Home Meds Tobacco use date assessed: 03/07/23 Dental Screening Dental Screen Date: 04/24/23 Did you have a dental visit in the last 12 months?: Yes Did you have a dental problem in the last 6 months where you did not have access to dental care?: No Was dental information given to patient?: Patient has dentist HPI Physical Exam HPI Details Pt is here for a PE. Will order labs. 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 Pt reports increased anxiety surrounding her son's upcoming major surgery. Will send short duration of lorazepam. Educated pt on risk of addiction, this is not a long-term med. Pt understands that they can not drive while taking this med, share this med, and to only take as prescribed. Denies any SI and HI. [facility] Medical History Left ovarian cyst Pancolitis Colitis SBO (small bowel obstruction) Bipolar 1 disorder Abnormal uterine bleeding (AUB) Numbness and tingling in both hands Surveillance for Depo-Provera contraception Hx of Western blot negative for herpes simplex virus Hx of abnormal cells from cervix Surgical History Hx of tubal ligation Hx of section Family History Father Rectal cancer Mother History of fibromyalgia Diabetes mellitus Maternal Grandmother Diabetes mellitus Abdominal aortic aneurysm Rheumatoid arthritis Paternal Aunt Cervical cancer Social History Household Members: Children Housing: Apartment Alcohol intake: current Alcohol intake frequency: a few times a month Patient Tobacco Use Status: Current everyday Tobacco user Cigarettes Per Day: 10 Years Smoked: 20 service: No 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al status: employed 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 1. Little interest or pleasure in doing things: nearly every day 2. Feeling down, depressed, or hopeless: nearly every day 3. Trouble falling or staying asleep, or sleeping too much: nearly every day 4. Feeling tired or having little energy: nearly every day 5. Poor appetite or overeating: nearly every day 6. Feeling bad about yourself - or that you are a failure or have let yourself or your family down: more than half the days 7. Trouble concentrating on things, such as reading the newspaper or watching television: nearly every day 8. Moving or speaking so slowly that other people could have noticed. Or the opposite - being so fidgety or restless that you have been moving around a lot more than usual: nearly every day 9. Thoughts that you would be better off or of hurting yourself in some way: not at all Total score: 23 Depression Screening Interpretation: Positive Depression Screening Follow-up: Existing condition and Declines treatment Depression Screening Done: Yes 94069 - PHQ-9 Billing: Yes Source: Developed by Drs. Rhys Mace, Abigail Lloyd, Mejia Ernst and colleagues, with an educational samia from [employer]. Thrive Questionnaire Date Thrive assessed: 04/24/23 I am a: Patient What is your living situation today?: I have a steady place to live Within the past 12 months, did the food you bought not last and you didn't have the money to get more?: Never true Within the past 12 months, did you worry whether your food would run out before you got money to buy more?: Never true Do you have trouble paying for medicines?: No Do you have trouble getting transportation to medical appointments?: No Do you have trouble paying your heating and electricity bill?: No Do you have trouble taking care of your child, family member or friend?: No Do you have trouble with day-to-day activities such as bathing, preparing meals, shopping, managing finances, etc.?: No Are you currently unemployed and looking for a job?: No Are you interested in more education?: No Currently or been in a relationship where the following occur: no concerns reported NAT-7 AMB Questionnaire NAT-7 Date NAT - 7 assessed: 04/24/23 Feeling nervous, anxious, or on edge: 3 = Nearly every day Not being able to stop or control worryin = Nearly every day Worrying too much about different things: 3 = Nearly every day Trouble relaxin = Nearly every day Being so restless that it is hard to sit still: 2 = More than half the days Becoming easily annoyed or irritable: 3 = Nearly every day Feeling afraid as if something awful might happen: 3 = Nearly every day Total NAT-7 score (0-4 normal; 5-9 mild; 10-14 moderate; 15-21 severe): 20 Source: Developed by Drs. Rhys Mace, Abigail Lloyd, Mejia Ernst and colleagues, with an educational samia from [employer]. NAT-7 Assessment Billing NAT-7 Assessment Tool: NAT-7 Assessment 93724 Review of Systems Const Denies chills and Denies fever(s) Eyes Denies blurry vision ENT Denies vertigo, Denies dizziness and Denies sore throat Card Denies chest pain at rest, Denies chest pain with activity, Denies diaphoresis, Denies dyspnea and Denies dyspnea on exertion Resp Denies cough, Denies dyspnea, Denies dyspnea on exertion and Denies wheezing GI Denies abdominal pain, Denies melena, Denies hematochezia, Denies constipation, Denies diarrhea and Denies loose stools Denies hematuria Musc Denies numbness and Denies tingling Skin/Breast Denies lesions Neuro Denies vertigo, Denies dizziness, Denies numbness and Denies tingling Psych Denies anxiety, Denies depression, Denies homicidal ideation, Denies suicidal ideation and Denies other (substance abuse) Aller/Immun Denies wheezing Physical exam (Primary Care) Vital Signs: Last Vital Signs Pulse 83 04/24/23 13:31 BP 120/60 04/24/23 13:31 Pulse Ox 98 04/24/23 13:31 Oxygen Delivery Method Room Air 04/24/23 13:31 BMI result Body Mass Index 25.7 Tobacco/Smoking Status: Tobacco use Status Tobacco use date assessed 03/07/23 04/24/23 13:30 Patient Tobacco Use Status Current everyday Tobacco 04/24/23 13:30 PHQ-9: PHQ-9 Score PHQ-9: Total score 04/24/23 14:39 Depression Screening Interpretation: Positive Depression Screening Follow-up: Existing condition and Declines treatment Thrive Assessment: Date of Thrive Assessment Date Thrive assessed 04/24/23 04/24/23 14:37 Currently or been in a relationship where the following occur: no concerns reported Const General: cooperative Nutritional Appearance: well nourished Orientation/consciousness: patient oriented x3 HENMT Head: Yes normal to inspection, Yes normocephalic and Yes atraumatic Ears: TM's normal bilaterally Eyes General: appearance normal, both eyes and all related structures Alignment and Position: alignment normal and position normal Neck Neck: Yes normal visual inspection and Yes no lymphadenopathy Thyroid: Thyroid normal Resp Effort & Inspection: normal respiratory effort Auscultation: clear to auscultation bilaterally Cardio Rate: regular rate Rhythm: regular rhythm Heart sounds: S1 normal heart sound present, S2 normal heart sound present and Murmur heart sound present systolic GI Palpation (GI): Soft to palpation and nontender Auscultation: normal bowel sounds Skin Rashes: no rashes Neuro General: patient oriented x3, moves all extremities, no focal motor deficits and deep tendon reflexes 2+ bilaterally Romberg Test: Negative Psych Appearance: grossly normal Mental Status: mental status grossly normal Speech and movement: Normal speech and movement present Affect: normal affect Attitude: cooperative Thought process: Normal thought process present Thought content: Normal thought content present Insight: Good insight present (Psych) Judgement: Good judgement present (Psych) Assessment and Plan Assessment & Plan (1) Physical exam: Code(s): Z00.00 - Encounter for general adult medical examination without abnormal findings Plan: Labs ordered Plan The patient agreed to the use of a medical record assistant for this encounter. Scribed for ANNABELLA Chacko by Keke Carrion medical record assistant, on 04/24/2023 at 13:45 EST. Medications: New lorazepam cannot drive while on this medication 0.5 mg PO Q4-6H PRN 7 tabs 0RF anxiety 2 days Coding Level of Care Code Est Pt Prev Care 18-39y(22841) Diagnoses Physical exam Z00.00 Additional Codes NAT-7 Assessment Billing - NAT-7 Assessment Tool: NAT-7 Assessment [id number] ([id number])
[2023-04-24 13:31] VITALS: BP 120/60; PULSE 83; O2SAT 98; BMI 25.7
== END 2023-04-24 16:45 | disposition home or self-care (01) ==
PROVIDERS: PCP Nurse Practitioner Family; Visit Provider Nurse Practitioner Family
DX: Z00.00 Encounter for general adult medical examination without abnormal findings (principal)
CPT/HCPCS: 99395

== ENCOUNTER 2023-07-04 15:47 | Outpatient (REF) | payer OTHER, SELFPAY ==
[2023-07-04 15:56] LABS: MANUAL DIFF FLAG NO
[2023-07-04 16:53] LABS: Basophils Percent Auto 0.2 % (0-2); Eosinophils Percent Auto 0.4 % (0-4); Imm Gran Abs Auto 0.04 X10*3/uL (0.00-0.03); Imm Gran Pct Auto 0.4 % (0.0-0.4); Lymphocytes Absolute Auto 1.9 X10*3/uL (1.2-4.9); Mean Corpuscular HGB Conc 33.3 g/dl (31.0-35.0); Mean Corpuscular Hemoglobin 29.2 pg (27.0-33.0); Mean Corpuscular Volume 87.6 fL (80.0-98.0); Mean Platelet Volume 10.9 fL (9.4-12.3); Monocytes Absolute Auto 0.5 X10*3/uL (0.1-1.2); Monocytes Percent Auto 5.9 % (2-11); Neutrophils Absolute Auto 6.5 x10*3/uL (2.0-8.3); Neutrophils Percent Auto 72.1 % (45-73); Platelet Count 271 X10*3/uL (160-400); Red Blood Count 4.11 X10*6/uL (4.20-5.50); Red Cell Distribution Width 13.4 % (11.0-16.0)
[2023-07-04 17:03] LABS: INTERNATIONAL NORM RATIO 0.9 (0.9-1.1)
[2023-07-04 17:23] LABS: Alanine Aminotransferase 22 U/L (0-31); Albumin Level 4.4 g/dL (3.5-5.0); Alkaline Phosphatase 61 U/L (39-117); Anion Gap 14 (12-20); Aspartate Amino Transferase 20 U/L (5-31); Bilirubin Total 0.2 mg/dL (0.0-1.0); Blood Urea Nitrogen 15 mg/dL (9-16); Calcium 9.3 mg/dL (8.4-10.2); Carbon Dioxide 25 mmol/L (22-29); Chloride 106 mmol/L (96-108); Estimated Glomerular Filt Rate > 60; Glucose Random 82 mg/dL (60-115); Sodium 141 mmol/L (135-145); Total Protein 7.6 g/dL (6.5-8.0)
== END 2023-07-04 15:48 | disposition home or self-care (01) ==
LOC: HO.LAB 15:47
PROVIDERS: PCP Nurse Practitioner Family; Visit Provider Nurse Practitioner Family
DX: Z01.818 Encounter for other preprocedural examination (principal)
CPT/HCPCS: 36415; 80053; 85025; 85610; 85730

== ENCOUNTER 2023-07-19 07:43 | Outpatient (AMB) | payer OTHER, SELFPAY ==
[2023-07-19 07:55] VITALS: BP 130/80; PULSE 76; O2SAT 98; BMI 24.9
--- NOTE | 2023-07-19 07:55 | A.OFFPC_ITS ---
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 She is scheduled to undergo a BBL on 08/08. Will do an EKG in office. Labs were already performed and are stable. They have been faxed to surgical office. Pt has a systolic murmur, echo has been ordered previously but was not done. Will not clear pt for surgery until she has an echo. [facility] Medical History Left ovarian cyst Pancolitis Colitis SBO (small bowel obstruction) Bipolar 1 disorder Abnormal uterine bleeding (AUB) Numbness and tingling in both hands Surveillance for Depo-Provera contraception Hx of Western blot negative for herpes simplex virus Hx of abnormal cells from cervix Surgical History Hx of tubal ligation Hx of section Family History Father Rectal cancer Mother History of fibromyalgia Diabetes mellitus Maternal Grandmother Diabetes mellitus Abdominal aortic aneurysm Rheumatoid arthritis Paternal Aunt Cervical cancer Social History Household Members: Children Housing: Apartment Alcohol intake: current Alcohol intake frequency: a few times a month Patient Tobacco Use Status: Current everyday Tobacco user Cigarettes Per Day: 10 Years Smoked: 20 service: No 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al status: employed 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 Rhys Mace, Abigail Lloyd, Mejia Ernst and colleagues, with an educational samia from [employer]. Review of Systems Const Denies chills and Denies fever(s) Eyes Denies blurry vision ENT Denies vertigo, Denies dizziness and Denies sore throat Card Denies chest pain at rest, Denies chest pain with activity, Denies diaphoresis, Denies dyspnea and Denies dyspnea on exertion Resp Denies cough, Denies dyspnea, Denies dyspnea on exertion and Denies wheezing GI Denies abdominal pain, Denies melena, Denies hematochezia, Denies constipation, Denies diarrhea and Denies loose stools Denies hematuria Musc Denies numbness and Denies tingling Skin/Breast Denies lesions Neuro Denies vertigo, Denies dizziness, Denies numbness and Denies tingling Psych Denies anxiety, Denies depression, Denies homicidal ideation, Denies suicidal ideation and Denies other (substance abuse) Aller/Immun Denies wheezing Physical exam (Primary Care) Vital Signs: Last Vital Signs Pulse 76 07/19/23 07:55 BP 130/80 07/19/23 07:55 Pulse Ox 98 07/19/23 07:55 Oxygen Delivery Method Room Air 07/19/23 07:55 BMI result Body Mass Index 24.9 Tobacco/Smoking Status: Tobacco use Status Tobacco use date assessed 07/19/23 07/19/23 07:59 Patient Tobacco Use Status Current everyday Tobacco 07/19/23 07:59 Thrive Assessment: Date of Thrive Assessment Date Thrive assessed 04/24/23 07/19/23 07:59 Const General: cooperative Nutritional Appearance: well nourished Orientation/consciousness: patient oriented x3 Neck Neck: Yes no lymphadenopathy Resp Effort & Inspection: normal respiratory effort Auscultation: clear to auscultation bilaterally Cardio Rate: regular rate Rhythm: regular rhythm Heart sounds: S1 normal heart sound present, S2 normal heart sound present and Murmur heart sound present systolic (faint) Neuro General: patient oriented x3 Psych Appearance: grossly normal Mental Status: mental status grossly normal Speech and movement: Normal speech and movement present Affect: normal affect Attitude: cooperative Thought process: Normal thought process present Thought content: Normal thought content present Insight: Good insight present (Psych) Judgement: Good judgement present (Psych) Assessment and Plan Assessment & Plan (1) Pre-op evaluation: Code(s): Z01.818 - Encounter for other preprocedural examination Plan: EKG done in office, labs already performed (2) Systolic murmur: Code(s): R01.1 - Cardiac murmur, unspecified Plan: echo RE-ordered, needed to be cleared for elective surgery. Plan The patient agreed to the use of a medical biller/coder for this encounter. Scribed for JV Chacko- by Keke Carrion medical biller/coder, on 07/19/2023 at 08:20 EST. Orders: Orders AMB EKG-In Office Today Z01.818 - Encounter for other preprocedural examination CA echo transthoracic complete Today R01.1 - Cardiac murmur, unspecified Coding Level of Care Code Est Pt Prev Care 18-39y(58081) Diagnoses Pre-op evaluation Z01.818 Systolic murmur R01.1
== END 2023-07-19 09:40 | disposition home or self-care (01) ==
PROVIDERS: PCP Nurse Practitioner Family; Visit Provider Nurse Practitioner Family
DX: R01.1 Cardiac murmur, unspecified (principal); Z01.818 Encounter for other preprocedural examination
CPT/HCPCS: 99214

== ENCOUNTER → 2023-07-25 13:57 | Outpatient (REF) | payer OTHER, SELFPAY ==
--- NOTE | 2023-07-25 13:59 | CA_ITS ---
Transthoracic Echocardiogram Patient (Last, First, Middle): Olinda Price V Gender: Female Date of : 1985 Age: 37 Procedure Date: 07/25/2023 Procedure Type: Transthoracic Echocardiogram Location: OP Height: 165.1 cm Weight: 66.68 kg BSA: 1.74 m2 Heart Rate: bpm BP: 110 / 64 mmHg Allergist/Md: AUDREY Referring MD: Larry Reed [facility] Correctional Medicine Physician: Edgar Huddleston MD Symptoms: R01.1 - Cardiac murmur, unspecified Study Quality: Adequate ECG Rhythm: Sinus Conclusions: - Normal study Findings Left Ventricle Normal left ventricular size, thickness, and systolic function. The visually estimated ejection fraction is between 65-70%. Diastolic function is normal for age. Peak GLS is -24.0%, within normal limits. Right Ventricle Normal right ventricular cavity size and systolic function. Atria Both atria are normal in size. There is no evidence of interatrial shunt. Aortic Valve Normal aortic valve structure and function. There is no aortic valve stenosis. There is no aortic valve regurgitation. Mitral Valve Normal mitral valve structure and function. There is trace mitral valve regurgitation. There is no mitral valve stenosis. Pulmonic Valve The pulmonic valve is likely normal. Tricuspid Valve Normal tricuspid valve structure. There is trace tricuspid valve regurgitation. The right ventricular systolic pressure is normal. The right ventricular systolic pressure is 25 mmHg. Normal right atrial pressure. There is no evidence of pulmonary hypertension. Great Vessels All visible segments of the aorta are normal in size. The visualized portions of the pulmonary artery and branches are normal. Venous The inferior vena cava is normal in size and collapses greater than 50% with inspiration. Pericardium/Pleural There is no evidence of pericardial effusion. Prior Study Comparison No prior study available for comparison. Measurements 2D Linear Measurements IVSd: 0.73 0.6-0.9/0.6-1.0 cm LVIDd: 4.40 3.9-5.3/4.2-5.9 cm LVIDd Index: 2.53 2.4-3.2/2.2-3.1 cm/m2 LVIDs: 2.18 2.0-3.6 cm LVPWd: 0.91 0.7-1.1 cm LA Diam: 3.00 2.7-3.8/3.0-4.0 cm LAIDs Index: 1.72 1.5-2.3 cm/m2 LV Mass: 141.03 67-162/88-224 g LV Mass Index: 81.05 43-95/49-115 g/m2 LVOT Diam: 1.90 3.0+(-)1.3 cm 2D Systolic Function EF 4C: 67.90 >55% EF 2C: 63.20 >55% EF BiP: 65.40 >55% Mitral Valve MV Pk E: 0.99 MV PK A: 0.82 MV Decel Time: 154.00 E/A: 1.20 E'Lateral: 15.70 E'Medial: 11.60 E/E' Med: 8.50 E/E' Lat: 6.30 PHT: 45.00 MVA PHT: 4.89 Decel [place]: 6.41 Aortic Valve AoV Pk Dominik: 1.53 AoV Mn Dominik: 1.07 AoV VTI: 0.33 AoV Pk Grad: 9.00 Aov Mn Grad: 5.00 JUSTINE Cont.VTI: 2.31 LVOT LVOT Pk Dominik: 1.44 LVOT Mn Dominik: 0.89 LVOT VTI: 0.27 LVOT Pk Grad: 8.00 LVOT Mn Grad: 4.00 LVOT Diam: 1.90 LVOT Area: 2.84 Diastolic Function MV Pk E: 0.99 MV Pk A: 0.82 E/A: 1.20 E'Medial: 11.60 E/E' Med: 8.50 E' Laterial: 15.70 E/E' Lat: 6.30 Right Ventricle TAPSE (mm): 28.50 TVS' Dominik: 15.70 Tricuspid Valve TR Pk Dominik: 2.37 TR Pk Grad: 22.00 RA Press: 3.00 RVSP: 25.00 Great Vessels Aorta Sinus of Valsalva: 2.87 2.0-3.[address] [place]: 2.34 1.7-3.4 cm Ao Asc: 2.70 2.1-3.4 cm Ao Arch: 2.70 Updated in Other Vendor System with Status of Final Edgar Huddleston MD electronically signed on 07/25/2023 4:46:34 PM with status of Final
== END ==
LOC: HO.CARD 13:57
PROVIDERS: PCP Nurse Practitioner Family; Visit Provider Nurse Practitioner Family
DX: R01.1 Cardiac murmur, unspecified (principal)
CPT/HCPCS: 93306

== ENCOUNTER → 2023-07-25 13:59 | Outpatient (BNV) | payer OTHER, SELFPAY | PROVIDERS: PCP Nurse Practitioner Family; Visit Provider Internal Medicine Cardiovascular Disease | DX: R01.1 Cardiac murmur, unspecified (principal) | CPT/HCPCS: 93306; 93356 ==

== ENCOUNTER 2023-11-24 15:17 | Emergency (ER) | payer OTHER, SELFPAY ==
--- NOTE | ~2023-11-24 | XR_ITS ---
EXAMINATION: XR HAND, LEFT CLINICAL INFORMATION: Injury COMPARISON: X-ray of the left hand and wrist March 2022 TECHNIQUE: PA, lateral, and oblique views of the left hand. FINDINGS: The bones and soft tissues are normal. No fracture. Alignment is anatomic. Joint spaces are maintained. No erosions or soft tissue calcifications. XR/XR hand LT min 3V IMPRESSION: Normal left hand.
[2023-11-24 15:40] VITALS: BP 128/77; PULSE 73; RESP 17; TEMP 37; O2SAT 100; BMI 24.1
--- NOTE | 2023-11-24 15:45 | ED.EXTPRO ---
HPI - Extremity Problem General Chief complaint: Extremity Injury, Upper Stated complaint: L thumb injury at work Time Seen by Provider: 11/24/23 16:11 Source: patient Mode of arrival: ambulatory Limitations: no limitations History of Present Illness HPI Narrative: Patient is a 38-year-old female who presents emergency department for evaluation of a work-related injury, reports that a resident grabbed onto the left thumb and twisted it has subsequently had pain and inability to move the digit. Related Data Home Medications ?Medication ?Instructions ?Recorded ?Confirmed No Known Home Meds 07/19/23 Allergies Allergy/AdvReac Type Severity Reaction Status Date / Time No Known Allergies Allergy Verified 11/24/23 15:44 Review of Systems Review of Systems: Yes all other systems are reviewed and are negative PMFSH Past Medical History Attestation statement: The following information was validated with the patient. Source: old records reviewed Medical History Left ovarian cyst Pancolitis Colitis SBO (small bowel obstruction) Bipolar 1 disorder Abnormal uterine bleeding (AUB) Numbness and tingling in both hands Surveillance for Depo-Provera contraception Hx of Western blot negative for herpes simplex virus Hx of abnormal cells from cervix Surgical History Hx of tubal ligation Hx of section Family History Family History Father Rectal cancer Mother History of fibromyalgia Diabetes mellitus Maternal Grandmother Diabetes mellitus Abdominal aortic aneurysm Rheumatoid arthritis Paternal Aunt Cervical cancer Social History Social History Household Members: Children Housing: Apartment Alcohol intake: current Alcohol intake frequency: a few times a month Patient Tobacco Use Status: Current everyday Tobacco user Cigarettes Per Day: 10 Years Smoked: 20 Do you have a plan to hurt others: No Plan service: No 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al status: employed 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 No acute distress.?Normal affect. Neck: Normal inspection.? Neck supple.?? CVS: Heart sounds normal. Normal heart rate and rhythm.? Pulses normal.?? Respiratory: No respiratory distress.? Lung sounds clear to auscultation bilaterally?? Skin: Skin warm and dry.? Normal skin color.? ?? Extremities: Left thumb with mild localized swelling, held in extension, has decreased flexion due to pain. No tenderness at the anatomical snuffbox. Neuro: Moves all extremities spontaneously. Sensation intact bilaterally. Ambulates with normal steady gait. Course Course Course Narrative: This is an RME performed by [facility] TROUBLE TRACER: Additional HPI, ROS, PE not included below will be deferred to primary provider. Patient is a 38-year-old female who presents emergency department for evaluation of a work-related injury, reports that a resident grabbed onto the left thumb and twisted it has subsequently had pain and inability to move the digit. Plan: XR Medical Decision Making Medical Decision Making MDM Narrative: Patient is a 38-year-old female who presents emergency department for evaluation of traumatic left thumb pain, she is primarily right-hand dominant. Has localized swelling decreased flexion on examination due to calm. No tenderness upon palpation of the anatomical snuffbox. Full range of motion to the remaining digits of the left hand and left wrist. This is neurovascularly intact distally. XR was obtained and does not show evidence of acute fracture dislocation. Symptoms at this time is consistent with a contusion/sprain, placed in a thumb spica splint, discussed conservative treatment, outpatient follow-up primary care provider. All questions answered. Stable for discharge Differential Diagnosis Differential Diagnoses: The differential diagnosis associated with the presentation includes (See narrative above) Independent Interpretation I performed an independent interpretation of an: Plain X-Ray (No acute fracture) Radiology Impression Discussion of test interpretation with radiology: I have reviewed the radiologist's reading. Radiologist Impression: Patient is a 38-year-old female who presents emergency department for evaluation of a work-related injury, reports that a resident grabbed onto the left thumb and twisted it has subsequently had pain and inability to move the digit. Prescription Management I considered prescription management with: Pain Medication (Acetaminophen/ibuprofen) Discharge Plan Discharge Clinical Impression: Left thumb sprain Patient Disposition: Home, Self-Care Instructions: Finger Sprain (ED), R.I.C.E. Treatment (ED) Additional Instructions: Please be sure to rest, apply to areas 15 minutes 3-4 times daily. Use thumb spica splint as provided for comfort. You can take ibuprofen 200 mg, 3 tablets (600mg) every 6-8 hours as needed for pain, in addition to Tylenol 500 mg, 2 tablets (1,000mg) every 4-6 hours as needed for pain, but not to exceed 3 doses daily (3,000mg).? Prescriptions: No Action No Known Home Meds Referrals: Larry Reed FNP-BC [Primary Care Provider] - Stand Alone Forms: Work/School Release Print Language: Citizen Of [place]
[2023-11-24 16:29] VITALS: BP 127/79; PULSE 69; RESP 16; TEMP 36.4; O2SAT 97
== END 2023-11-24 16:31 | disposition home or self-care (01) ==
LOC: HO.ED 16:25
PROVIDERS: Emergency Provider Internal Medicine; PCP Nurse Practitioner Family
DX: S63.602A Unspecified sprain of left thumb, initial encounter (principal); X50.1XXA Overexertion from prolonged static or awkward postures, initial encounter; Y93.F9 Activity, other caregiving; Y92.129 Unspecified place in nursing home as the place of occurrence of the external cause; Y99.0 Civilian activity done for income or pay
CPT/HCPCS: 29130; 73130; 99282; 99283

== ENCOUNTER 2024-02-29 07:57 | Outpatient (AMB) | payer OTHER, SELFPAY ==
--- NOTE | 2024-02-29 07:59 | MHC.OFFVIS ---
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 Doing well with concerns: History of ovarian cyst has an occasional bilateral pelvic pain fluctuating either side. She denies any urinary symptoms. She tries to eat healthy and stays active with exercise. Regular monthly menses every 30-35 days. History of tubal ligation. Currently is sexually active. She denies vaginal itching and irritation. STI screening offered; she accepts. Denies family history of breast or ovarian. Family history of colon cancer-dad diagnosed age 55. She reports normal colonoscopy done approximately 1 year ago. Last pap smear 2020, negative. [facility] Medical History (Updated 02/29/24 @ 08:19 by Lesia Cantu CNM) Left ovarian cyst Pancolitis Colitis SBO (small bowel obstruction) Bipolar 1 disorder Numbness and tingling in both hands Hx of Western blot negative for herpes simplex virus Hx of abnormal cells from cervix Surgical History (Updated 02/29/24 @ 08:03 by LAURIE Vergara) H/O liposuction of abdomen Hx of tubal ligation Hx of section Family History (Updated 02/29/24 @ 08:04 by LAURIE Vregara) Father Rectal cancer Colon cancer Mother History of fibromyalgia Diabetes mellitus Maternal Grandmother Diabetes mellitus Abdominal aortic aneurysm Rheumatoid arthritis Paternal Aunt Cervical cancer Social History Household Members: Children Housing: Apartment Alcohol intake: current Alcohol intake frequency: a few times a month Patient Tobacco Use Status: Current everyday Tobacco user Cigarettes Per Day: 10 Years Smoked: 20 service: No 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al status: employed 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 Sexual orientation: Straight/Heterosexual Gender identity: Female Cognitive needs: No Hearing needs: No Vision needs: No Female Reproductive History Menstrual Age of Menarche: 15 Date of last menstrual period: 02/16/24 control method: permanent sterilization Permanent Sterilization: BTL Total pregnancies: 2 Full term: 2 Number of Living Children: 2 Date of last pap smear: 09/28/20 (neg pap and hpv) Review of Systems Const All systems reviewed & are unremarkable except as noted in HPI and below Reports as per HPI Eyes Reports no additional complaints ENT Reports no additional complaints Card Reports no additional complaints Resp Reports no additional complaints GI Reports as per HPI and Reports no additional complaints Reports as per HPI Musc Reports no additional complaints Skin/Breast Reports as per HPI Neuro Reports no additional complaints Psych Reports no additional complaints Endo Reports no additional complaints Varinder/Lymph Reports no additional complaints Aller/Immun Reports no additional complaints Physical Exam Const General: cooperative, healthy appearing, no acute distress, well developed and alert Orientation/consciousness: patient oriented x3 HEENT Head: Yes normal to inspection Eyes General: appearance normal, both eyes and all related structures Neck Neck: Yes normal visual inspection Thyroid: Thyroid normal Chest Chest palpation & inspection: normal inspection of the chest and other (no puckering, dimpling, peau de orange, retraction, discharge, masses) Breast/axilla inspection: normal inspection of the breasts Breast/axilla palpation: normal palpation of the breasts Resp Effort & Inspection: normal respiratory effort GI Inspection: Yes normal to inspection Palpation (GI): Soft to palpation Rectal Exam - Female: deferred General: Yes bladder normal to palpation External Female Exam: normal external appearance and normal appearance of the urethra Speculum Exam - Vagina: normal appearance of the vagina, normal palpation and normal vaginal discharge Speculum Exam - Cervix: normal appearance of the cervix and normal palpation Bimanual exam- vagina & uterus: normal bimanual exam, normal palpation, uterine size normal, bladder normal to palpation, normal palpation and non-tender Bimanual Exam- Adnexa, other: no masses Skin General skin exam: no rashes or lesions noted Rashes: no rashes Neuro General: patient oriented x3 Cognition (Neuro): normal cognition Extrem General: Yes normal to inspection Psych Attitude: cooperative Thought process: Normal thought process present Assessment & Plan Assessment & Plan (1) Encounter for well woman exam with routine gynecological exam: Code(s): Z01.419 - Encounter for gynecological examination (general) (routine) without abnormal findings Category: Medical (2) Pelvic pain: Code(s): R10.2 - Pelvic and perineal pain Category: Medical Plan Discussed: Current recommendations for pap smears per ASCCP guidelines. Breast awareness and periodic breast exams. Maintain a healthy lifestyle including a well balanced diet and routine exercise. Pelvic ultrasound, GC chlamydia and BV panel obtained, follow up pending ultrasound results. Monitoring menses, if any prolonged cycles or closely spaced less than 24 days to call the for Patient verbalizes understanding and agrees to the plan of care. She was given opportunity to ask questions and all questions were answered to the best of my ability. RTO in one year for annual peg driver examination. This note is constructed using voice recognition software. While every effort has been made to ensure accuracy, delivery stock clerk errors may have been included. Orders: Orders Bacterial Vaginosis Panel Today Z20.2 - Contact with and (suspected) exposure to infections with a predominantly sexual mode of transmission CT NG by PCR Today Z20.2 - Contact with and (suspected) exposure to infections with a predominantly sexual mode of transmission US pelvic and transvaginal Today R10.2 - Pelvic and perineal pain, Z87.42 - Personal history of other diseases of the female genital tract Coding Level of Care Code Est Pt Prev Care 18-39y(39986) Diagnoses Encounter for well woman exam with routine gynecological exam Z01.419 Pelvic pain R10.2
[2024-02-29 08:00] VITALS: BP 124/80; BMI 24.5
== END 2024-02-29 08:20 | disposition home or self-care (01) ==
PROVIDERS: PCP Nurse Practitioner Family; Visit Provider Advanced Practice Midwife
DX: Z01.419 Encounter for gynecological examination (general) (routine) without abnormal findings (principal); R10.2 Pelvic and perineal pain
CPT/HCPCS: 99395

== ENCOUNTER 2024-02-29 08:17 | Outpatient (REF) | payer OTHER, SELFPAY | END 2024-02-29 08:18 | disposition home or self-care (01) | LOC: HO.LNP 08:17 | PROVIDERS: Visit Provider Advanced Practice Midwife | DX: Z13.89 Encounter for screening for other disorder (principal) ==

== ENCOUNTER 2024-03-07 13:01 | Outpatient (REF) | payer OTHER, SELFPAY | END 2024-03-07 13:02 | disposition home or self-care (01) | LOC: HO.HMGCX 13:01 | PROVIDERS: PCP Nurse Practitioner Family; Visit Provider Advanced Practice Midwife | DX: R10.2 Pelvic and perineal pain (principal); Z87.42 Personal history of other diseases of the female genital tract | CPT/HCPCS: 76830; 76856 ==

== ENCOUNTER 2024-05-08 11:28 | Outpatient (AMB) | payer OTHER, SELFPAY ==
[2024-05-08 11:29] VITALS: BP 122/78; PULSE 83; O2SAT 98; BMI 25.1
--- NOTE | 2024-05-08 11:29 | A.OFFPC_ITS ---
Vital Signs 05/08/24 11:29 Height 5 ft 4 in Weight 146 lb BMI 25.1 BP 122/78 Blood Pressure Location Rt brachial Position Sitting Pulse 83 Pulse Source Pulse Oximeter Pulse Oximetry (%) 98 Oxygen Delivery Method Room Air Intake Visit Reasons: PE. Intake Note: Pt is here today for PE. Allergies No Known Allergies Allergy (Verified 05/08/24 11:32) Medication List - Last Reconciled 05/08/24 by GAYATHRI Luna No Known Home Meds Tobacco use date assessed: 05/08/24 Dental Screening Dental Screen Date: 05/08/24 Did you have a dental visit in the last 12 months?: Yes Did you have a dental problem in the last 6 months where you did not have access to dental care?: No Was dental information given to patient?: Patient has dentist HPI PE. HPI Details History of Present Illness The patient is a 38-year-old female presenting with Crohn's Disease for which she is unable to work at the moment. She was recently diagnosed and is scheduled for a follow-up with her insulator helper. She is experiencing significant impact on her lifestyle, including work cessation, attributable to this diagnosis. There are currently no reported chest pains, shortness of breath, numbness, tingling, or urinary problems. Alongside Crohn's Disease, the patient has been experiencing symptoms of anxiety and depression, evidenced by her teary-eyed demeanor during the visit. Health Maintenance Social History - Currently not working due to Crohn's D isease. Review of Systems - Respiratory: Denies chest pain or shor tness of breath. - Neurological: Denies numbness or tingl ing. - Genitourinary: Denies urinary problems . - denied any recent blood in stool -intermittent abd tenderness verbalized Physical Exam General: Cooperative, healthy appearing, comfortable, no acute distress and well developed Orientation: Patient oriented x3 Limitations: No limitations Head: Normal to inspection Ears: Hearing grossly normal bilaterally Nose: Normal external nose present Face and sinus: Normal facial exam Eyes: Appearance normal, both eyes and all related structures, a little teary- eyed Neck: Normal visual inspection and Yes full ROM Respiratory: Normal respiratory effort and able to speak in complete sentences. Clear to auscultation bilaterally Cardiovascular: Regular rate and rhythm. Normal S1 and S2 GI: Normal to inspection. Soft to palpation and nontender Skin: No rashes or lesions noted Neuro: Patient oriented x3 Extremities: Normal to inspection Results Plan - I will complete any necessary paperwor k for Social Security Disability associated with Crohn's Disease. - The patient should get her lab work do ne in the near future. - Reinforce the importance of following up with her insulator helper as planned. - Monitor symptoms of anxiety and depres eileen, providing support and potential referrals if necessary. Patient was informed and verbally consented to the use of an ambient scribe for clinic note documentation during this visit. Discussion Notes During the consultation, I explained to the patient the probable impacts of Crohn's Disease on her daily life and work capacity, along with the importance of regular follow-up with her insulator helper. I discussed providing necessary documentation for Social Security Disability and emphasized monitoring the symptoms of anxiety and depression. I advised her to get her labs done soon and to reach out with any concerns or worsening of her symptoms. Patient Instructions - Follow up with your insulator helper as scheduled. - Complete lab work as recommended. - Watch for any worsening symptoms or ne w issues and contact me if they occur. - I will assist with any paperwork neede d for Social Security Disability. - Continue to monitor anxiety and depres eileen; reach out if you need additional support. -refuses a therapist or meds currently [facility] Medical History (Updated 05/08/24 @ 12:07 by ANNABELLA Luna) Crohn's colitis Left ovarian cyst Pancolitis Colitis SBO (small bowel obstruction) Bipolar 1 disorder Numbness and tingling in both hands Hx of Western blot negative for herpes simplex virus Hx of abnormal cells from cervix Surgical History H/O liposuction of abdomen Hx of tubal ligation Hx of section Family History Father Rectal cancer Colon cancer Mother History of fibromyalgia Diabetes mellitus Maternal Grandmother Diabetes mellitus Abdominal aortic aneurysm Rheumatoid arthritis Paternal Aunt Cervical cancer Social History Household Members: Children Housing: Apartment Alcohol intake: current Alcohol intake frequency: a few times a month Patient Tobacco Use Status: Former Tobacco user Cigarettes Per Day: 10 Years Smoked: 20 Packs per year/per ci.00 service: No 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al status: employed 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 1. Little interest or pleasure in doing things: more than half the days 2. Feeling down, depressed, or hopeless: more than half the days 3. Trouble falling or staying asleep, or sleeping too much: nearly every day 4. Feeling tired or having little energy: more than half the days 5. Poor appetite or overeating: nearly every day 6. Feeling bad about yourself - or that you are a failure or have let yourself or your family down: more than half the days 7. Trouble concentrating on things, such as reading the newspaper or watching television: more than half the days 8. Moving or speaking so slowly that other people could have noticed. Or the opposite - being so fidgety or restless that you have been moving around a lot more than usual: not at all 9. Thoughts that you would be better off or of hurting yourself in some way: not at all Total score: 16 Depression Screening Interpretation: Positive Depression Screening Done: Yes 79501 - PHQ-9 Billing: Yes Source: Developed by Drs. Rhys Mace, Abigail Lloyd, Mejia Ernst and colleagues, with an educational samia from [employer]. Thrive Questionnaire Date Thrive assessed: 05/08/24 I am a: Patient What is your living situation today?: I have a steady place to live Within the past 12 months, did the food you bought not last and you didn't have the money to get more?: Sometimes True Within the past 12 months, did you worry whether your food would run out before you got money to buy more?: Sometimes True Do you have trouble paying for medicines?: No Do you have trouble getting transportation to medical appointments?: No Do you have trouble paying your heating and electricity bill?: Yes Do you have trouble taking care of your child, family member or friend?: No Do you have trouble with day-to-day activities such as bathing, preparing meals, shopping, managing finances, etc.?: No Are you currently unemployed and looking for a job?: No Are you interested in more education?: No THRIVE Score: 3 AUDIT C Alcohol Use Questionnaire (AUDIT-C) 1. How often do you have a drink containing alcohol?: Monthly or less 2. How many drinks containing alcohol do you have on a typical day when you are drinking?: 1 or 2 3. How often do you have six or more drinks on one occasion?: Less than monthly Total Score: 2 NAT-7 AMB Questionnaire NAT-7 Date NAT - 7 assessed: 05/08/24 Feeling nervous, anxious, or on edge: 2 = More than half the days Not being able to stop or control worryin = More than half the days Worrying too much about different things: 2 = More than half the days Trouble relaxin = More than half the days Being so restless that it is hard to sit still: 1 = Several days Becoming easily annoyed or irritable: 1 = Several days Feeling afraid as if something awful might happen: 1 = Several days Total NAT-7 score (0-4 normal; 5-9 mild; 10-14 moderate; 15-21 severe): 11 Source: Developed by Drs. Rhys Mace, Abigail Lloyd, Mejia Ernst and colleagues, with an educational samia from [employer]. NAT-7 Assessment Billing NAT-7 Assessment Tool: NAT-7 Assessment 82010 Physical exam (Primary Care) Vital Signs: Last Vital Signs Pulse 83 05/08/24 11:29 BP 122/78 05/08/24 11:29 Pulse Ox 98 05/08/24 11:29 Oxygen Delivery Method Room Air 05/08/24 11:29 BMI result Body Mass Index 25.1 Tobacco/Smoking Status: Tobacco use Status Tobacco use date assessed 05/08/24 05/08/24 11:35 Patient Tobacco Use Status Former Tobacco user 05/08/24 11:35 PHQ-9: PHQ-9 Score PHQ-9: Total score 16 05/08/24 12:00 Depression Screening Interpretation: Positive Thrive Assessment: Date of Thrive Assessment Date Thrive assessed 05/08/24 05/08/24 11:41 Coding Level of Care Code Est Pt Prev Care 18-39y(45788) Diagnoses Physical exam Z00.00 Crohn's colitis K50.10 Additional Codes NAT-7 Assessment Billing - NAT-7 Assessment Tool: NAT-7 Assessment 53671 ([id number]) PHQ-9 - 87836 - PHQ-9 Billing: Yes ([id number]) Assessment & Plan Assessment & Plan (1) Physical exam: Code(s): Z00.00 - Encounter for general adult medical examination without abnormal findings Category: Medical (2) Crohn's colitis: Code(s): K50.10 - Crohn's disease of large intestine without complications Category: Medical Plan . Orders: Orders UA CC w/rflx Micro + Cult Today Z00.00 - Encounter for general adult medical examination without abnormal findings Lipid Panel Today Z00.00 - Encounter for general adult medical examination without abnormal findings IRON PROFILE Today K50.10 - Crohn's disease of large intestine without complications, Z00.00 - Encounter for general adult medical examination without abnormal findings Complete Blood Count Auto Diff Today Z00.00 - Encounter for general adult medical examination without abnormal findings Comprehensive [place]. Panel Fast Today Z00.00 - Encounter for general adult medical examination without abnormal findings TSH reflex Free T4 Today Z00.00 - Encounter for general adult medical examination without abnormal findings Vitamin B12 and Folate Today K50.10 - Crohn's disease of large intestine without complications, Z00.00 - Encounter for general adult medical examination without abnormal findings Medications: New omeprazole 20 mg PO DAILY 90 caps 0RF 90 days
== END 2024-05-08 12:12 | disposition home or self-care (01) ==
PROVIDERS: PCP Nurse Practitioner Family; Visit Provider Nurse Practitioner Family
DX: Z00.00 Encounter for general adult medical examination without abnormal findings (principal); K50.10 Crohn's disease of large intestine without complications

== ENCOUNTER → 2024-05-08 11:28 | Outpatient (BNVA) | payer OTHER, SELFPAY | PROVIDERS: PCP Nurse Practitioner Family; Visit Provider Nurse Practitioner Family | DX: Z00.00 Encounter for general adult medical examination without abnormal findings (principal); K50.10 Crohn's disease of large intestine without complications; F41.9 Anxiety disorder, unspecified; F32.A Depression, unspecified | CPT/HCPCS: 96127; 99395 ==

== ENCOUNTER 2024-05-15 09:45 | Outpatient (AMB) | payer OTHER, SELFPAY ==
--- NOTE | 2024-05-15 09:45 | A.OFFVIS_ITS ---
Intake Visit Reasons: TV ultrasound follow up Intake Note: cell #[phone] Sign Fabricator: Sign Fabricator Present Allergies No Known Allergies Allergy (Verified 05/15/24 09:46) Is last menstrual period known: Yes HPI Comments Details: [facility] visit 09:50-10:11. I spent 12 minutes speaking with the patient on the phone plus an additional 5 minutes reviewing the chart and 5 minutes updating the medical record for a total of 22 minutes. Patient presents via phone to discuss: Ultrasound findings, history of pelvic pain fluctuating left and right sides at times with a fluttering sensation and chronic pelvic pain. She admits to history of a ovarian cysts, history of Essure coils removed. History of Crohn's colitis. [facility] Medical History (Updated 05/15/24 @ 10:24 by Lesia Cantu CNM) Complex cyst of right ovary Crohn's colitis Pancolitis Colitis SBO (small bowel obstruction) Bipolar 1 disorder Numbness and tingling in both hands Hx of Western blot negative for herpes simplex virus Hx of abnormal cells from cervix Surgical History H/O liposuction of abdomen Hx of tubal ligation Hx of section Family History Father Rectal cancer Colon cancer Mother History of fibromyalgia Diabetes mellitus Maternal Grandmother Diabetes mellitus Abdominal aortic aneurysm Rheumatoid arthritis Paternal Aunt Cervical cancer Social History Household Members: Children Housing: Apartment Alcohol intake: current Alcohol intake frequency: a few times a month Patient Tobacco Use Status: Former Tobacco user Cigarettes Per Day: 10 Years Smoked: 20 service: No 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al status: employed 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: [employer] Sexual orientation: Straight/Heterosexual Gender identity: Female Cognitive needs: No Hearing needs: No Vision needs: No Female Reproductive History Menstrual Age of Menarche: 15 Review of Systems Const All systems reviewed & are unremarkable except as noted in HPI and below Endo Reports no additional complaints Physical Exam Const General: cooperative, healthy appearing and no acute distress Psych Appearance: well kempt Attitude: cooperative Thought process: Normal thought process present Telehealth Telehealth Telehealth Platform: [facility] Location of provider rendering services: practice address Location of patient: address on file Telehealth method: video Patient verbally consented to treatment: Yes Patient verbally consented to billing insurance company: Yes Patient informed of any privacy concerns related to visit: Yes Results Reviewed Results Reviewed: [facility] [place] [address] Ultrasound Report Signed Patient: Olinda Price V MR#: [id number] : 1985 Acct:[id number] Age/Sex: 38 / F ADM Date: 03/07/24 Loc: HO.HMGCX Attending Dr: Lesia Cantu CNM Ordering Physician: Lesia Cantu CNM Date of Service: 03/07/24 Procedure(s): US pelvic and transvaginal Accession Number(s): [id number] cc: Larry Reed HEALTH INSURANCE ADJUSTER-; Lesia Cantu CNM~ EXAMINATION: US PELVIS CLINICAL INFORMATION: Pain and pelvis with history of ovarian cyst COMPARISON: None available. TECHNIQUE: Ultrasound of the pelvis is performed using both transabdominal and transvaginal transducers along with Doppler. Transvaginal imaging is performed due to inadequate visualization transabdominally. FINDINGS: Uterus: The uterus is anteverted and measures 7.1 x 3.6 x 4.1 cm. The double wall endometrial thickness is 15 mm. The endometrium appears heterogeneous The uterus is smooth in contour and has normal myometrial echogenicity. No visible fibroid. Nabothian cyst is present in the cervix. Adnexa: Both ovaries are visualized. There is normal color flow to the adnexa. There is no ovarian torsion. There is no pelvic ascites or fluid collection. Right ovary measures 4.6 x 3.4 x 2.9 cm for a volume of 23.7 cc which includes a complex septated cyst measuring 2.4 x 1.6 x 2.5 cm. Left ovary measures 3.2 x 1.8 x 3.1 cm for a volume of 9.3 cc and appears normal. US/US pelvic and transvaginal IMPRESSION: 1. Complex septated right ovarian cyst. Follow-up ultrasound in 6-12 weeks is recommended. 2. Thickened heterogeneous endometrium. Please correlate with patient's menstrual cycle and can reevaluate at the time of repeat ultrasound. Electronically signed by: Андрей Gross MD 05/04/2024 11:18 PM EST RP Dictated By: Андрей Gross MD Signed By: <Electronically signed by Андрей Gross MD in OV> 05/04/24 0888 DD/ 1302 TD/TT: 03/07/24 1331 Ice Cream Machine Operator: LESTER Assessment & Plan Assessment & Plan (1) Chronic pelvic pain in female: Code(s): R10.2 - Pelvic and perineal pain; G89.29 - Other chronic pain Category: Medical Plan: (2) Complex cyst of right ovary: Code(s): N83.291 - Other ovarian cyst, right side Category: Medical Plan Discussed: Ultrasound findings indicate the right-sided complex ovarian cyst recommended to have a follow up. Counseled regarding findings of: Complex ovarian cyst, which is often benign, and most resolve on their own overtime. Some develop into premalignant or malignant tumors. Limitations of testing for diagnostic purposes. Further monitoring and evaluation is recommended with US, possible CT, or MRI study. If persists, or is indicated (Ca-125, Carbohydrate Antigen 19-9, & Carcinoembryonic Antigen) labs will be ordered and referral to [facility] or general gynecology for MD care if indicated for possible surgical consult. Follow up for test results. She is concerned she still has pelvic pain and would like to see someone to consider surgery, referral accepted to [facility] were previous surgery was to see the provider again for a consult. All of her questions and concerns were addressed to the best of my ability and shared decision making. She is agreeable to the plan of care. This note is constructed using voice recognition software. While every effort has been made to ensure accuracy, commercial loan collection officer errors may have been included. Orders: Orders US pelvic and transvaginal Today G89.29 - Other chronic pain, N83.291 - Other ovarian cyst, right side, R10.2 - Pelvic and perineal pain Referrals ACCOUNTING ASSISTANT Referral G89.29 - Other chronic pain, N83.291 - Other ovarian cyst, right side, R10.2 - Pelvic and perineal pain Coding Level of Care Code Tele Est Pt Level 3 (96841) Diagnoses Chronic pelvic pain in female R10.2; G89.29 Complex cyst of right ovary N83.291
== END 2024-05-15 14:33 | disposition home or self-care (01) ==
LOC: HO.HWSW 09:45
PROVIDERS: PCP Nurse Practitioner Family; Visit Provider Advanced Practice Midwife
DX: R10.2 Pelvic and perineal pain (principal); G89.29 Other chronic pain; N83.291 Other ovarian cyst, right side
CPT/HCPCS: 99213

== ENCOUNTER → 2024-05-15 09:45 | Outpatient (BNVA) | payer OTHER, SELFPAY | PROVIDERS: PCP Nurse Practitioner Family; Visit Provider Advanced Practice Midwife ==

== ENCOUNTER 2024-05-23 14:27 | Outpatient (REF) | payer OTHER, SELFPAY ==
--- NOTE | ~2024-05-23 | US_ITS ---
EXAMINATION: US PELVIS TRANSABDOMINAL AND TRANSVAGINAL HISTORY: N83.291 - CHRONIC PELVIC PAIN, RIGHT OVARY COMPLEX CYST COMPARISON: Comparison is made with the prior examination dated 03/07/2024. TECHNIQUE: Transabdominal and endovaginal real-time 2D burkett-scale ultrasound was performed. Color Doppler was also performed. FINDINGS: Uterus: The uterus is normal in size, measuring 6.3 x 3.6 x 4.5 cm. Myometrium has a normal echotexture. No fibroids are identified. Endometrium: The endometrial stripe measures 5 mm in thickness. Right ovary: The right ovary measures 3.7 x 1.6 x 1.8 cm. The right ovary is normal in size and echotexture. Multiple small follicles are noted. The previously seen complex cyst is no longer identified. Left ovary: The left ovary measures 3.6 x 1.7 x 2.9 cm. The left ovary is normal in size and echotexture. Multiple small follicles are noted. Color Doppler analysis of the bilateral ovarian arteries and veins are normal. Pelvic fluid: none. US/US pelvic and transvaginal IMPRESSION: Unremarkable pelvic ultrasound. The previously seen complex right ovarian cyst has resolved. Electronically signed by: Rhys Seay MD 05/23/2024 03:56 PM [facility]
== END 2024-05-23 14:28 | disposition home or self-care (01) ==
LOC: HO.HMGCX 14:27
PROVIDERS: PCP Nurse Practitioner Family; Visit Provider Advanced Practice Midwife
DX: N83.291 Other ovarian cyst, right side (principal); R10.2 Pelvic and perineal pain; G89.29 Other chronic pain
CPT/HCPCS: 76830; 76856

== ENCOUNTER → 2024-05-23 14:31 | Outpatient (BNV) | payer OTHER, SELFPAY | PROVIDERS: PCP Nurse Practitioner Family; Visit Provider Radiology Diagnostic Radiology | DX: N83.291 Other ovarian cyst, right side (principal) | CPT/HCPCS: 76830; 76856 ==

== ENCOUNTER 2024-06-06 09:21 | Outpatient (REF) | payer OTHER, SELFPAY ==
[2024-06-06 13:53] LABS: MANUAL DIFF FLAG NO
[2024-06-06 13:54] LABS: Appearance Urine Clear; Color Urine Yellow; Glucose Urine UA Negative (Negative); Leukocyte Esterase Urine Negative (Negative); Nitrite Urine Negative (Negative); PH 6.5 (5.0-9.0); Specific Gravity - Urine 1.025 (1.005-1.025); Urine Blood Negative (Negative); Urine Ketones Negative (Negative); Urine Protein Negative (Neg-Trace)
[2024-06-06 13:57] LABS: Basophils Percent Auto 0.3 % (0-2); Eosinophils Absolute Auto 0.1 X10*3/uL (0.0-0.4); Eosinophils Percent Auto 2.4 % (0-4); Hematocrit 36.6 % (37.0-47.0); Hemoglobin 11.7 g/dl (12.0-16.0); Imm Gran Abs Auto 0.03 X10*3/uL (0.00-0.03); Imm Gran Pct Auto 0.5 % (0.0-0.4); Lymphocytes Absolute Auto 1.3 X10*3/uL (1.2-4.9); Lymphocytes Percent Auto 21.8 % (20-40); Mean Corpuscular Hemoglobin 28.5 pg (27.0-33.0); Mean Corpuscular Volume 89.1 fL (80.0-98.0); Mean Platelet Volume 11.1 fL (9.4-12.3); Monocytes Absolute Auto 0.6 X10*3/uL (0.1-1.2); Monocytes Percent Auto 9.9 % (2-11); Neutrophils Absolute Auto 3.8 x10*3/uL (2.0-8.3); Neutrophils Percent Auto 65.1 % (45-73); Platelet Count 294 X10*3/uL (160-400); Red Blood Count 4.11 X10*6/uL (4.20-5.50); Red Cell Distribution Width 13.4 % (11.0-16.0); White Blood Count 5.9 X10*3/uL (4.8-10.8)
[2024-06-06 14:52] LABS: Alanine Aminotransferase 26 U/L (0-31); Alkaline Phosphatase 71 U/L (39-117); Anion Gap 13 (12-20); Aspartate Amino Transferase 27 U/L (5-31); Bilirubin Total 0.2 mg/dL (0.0-1.0); Blood Urea Nitrogen 16 mg/dL (9-16); Calcium 9.1 mg/dL (8.4-10.2); Carbon Dioxide 24 mmol/L (22-29); Chloride 107 mmol/L (96-108); Cholesterol 182 mg/dL (<200); Estimated Glomerular Filt Rate > 60; Glucose Fasting 83 mg/dL (60-99); HDL Cholesterol 60 mg/dL (>40); Iron 50 mcg/dL (30-160); LDL Cholesterol Calculated 99 mg/dL (<100); Percent Iron Saturation 17 % (15-50); Potassium 4.2 mmol/L (3.3-5.1); Sodium 140 mmol/L (135-145); Total Iron Binding Capacity 302 mcg/dL (228-428); Total Protein 7.3 g/dL (6.5-8.0); Triglycerides 119 mg/dL (<150); Unsaturated Iron Binding 252 ug/dL
[2024-06-06 14:54] LABS: Folate 6.4 ng/mL (> or = 4.0); Vitamin B12 181 pg/mL (200-900)
[2024-06-06 15:13] LABS: TSH reflex Free T4 1.55 uIU/mL (0.32-4.0)
== END 2024-06-06 09:22 | disposition home or self-care (01) ==
LOC: HO.HMGCLDS 09:21
PROVIDERS: PCP Nurse Practitioner Family; Visit Provider Nurse Practitioner Family
DX: Z00.00 Encounter for general adult medical examination without abnormal findings (principal); K50.10 Crohn's disease of large intestine without complications
CPT/HCPCS: 36415; 80053; 80061; 81003; 82607; 82746; 83540; 84443; 85025

== ENCOUNTER 2024-06-10 11:04 | Outpatient (AMB) | payer OTHER, SELFPAY ==
--- NOTE | 2024-06-10 11:16 | AM.OFFVISNUR ---
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 Allergies No Known Allergies Allergy (Verified 06/10/24 11:17) Medication List - Last Reconciled 06/10/24 by Sheila Velez RN cyanocobalamin (vitamin B-12) 1,000 mcg IM .weekly omeprazole 20 mg PO DAILY 90 days valacyclovir (Valtrex) 500 mg PO BID 3 days Office Meds cyanocobalamin (vitamin B-12) 1,000 mcg/mL injection solution Performing [facility] [place] [facility] Administered by: Sheila Velez RN on 06/10/24 11:18 Dose Route Admin Location Dispensed Lot Number Expiration Date [facility] R[employer] 1,000 mcg IM left deltoid 1 mL [id number] 09/11/25 16846-894-73 [employer] Comments: Pt supplied Assessment & Plan Assessment & Plan Orders: Orders AMB Vitamin B12 Injection Patient Supplied Today E53.8 - Deficiency of other specified B group vitamins Medications: New cyanocobalamin (vitamin B-12) 1,000 mcg IM ONCE 1 mL 0RF E53.8 - Deficiency of other specified B group vitamins Coding
--- OUTSIDE RECORDS SUMMARY | 2024-06-10 12:19 | XMS_ITS | Clinical Summary ---
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 exam. - Stool in the entire examined colon. - The entire examined colon is normal. Biopsied. - Erythematous mucosa in the terminal ileum.Biopsied. Recommendation: - Discharge patient to home. - Await biopsy results. - Terminal ileum Crohn's disease suspected given chronic and recurrent SBO with terminal ileitis. Infection unlikely. - Obtain a CDiff toxin today. Obtain fecal calprotectin level. - Start IV solumedrol 60 mg IV today. - Advance diet to soft and monitor for recurrent obstructive symptoms. - No bowel prep was ordered for this patient. An unprepped colonoscopy was performed as she had the intention of leaving [place] otherwise. Hilary Diallo DO GI~PROCEDURE ORDERAB LES * Tissue exam (04/15/2024 8:59 AM EST) Final Diagnosis A. Small Intestine, Ileum, terminal ileum biopsies: - Ileal mucosa with preserved villi and rare lamina propria and surface intraepithelial neutrophils, compatible with focal, minimally (non-specific) active ileitis. - Negative for architectural distortion, granuloma, and dysplasia. B. Colon, random colon biopsies: - Colonic mucosa with rare lamina propria and surface intraepithelial neutrophils, compatible with focal, minimally (non-specific) active colitis. - Negative for architectural distortion, granuloma, and dysplasia. 04/16/2024 9:19 AM [facility] Gross Description A. Small Intestine, Ileum, terminal ileum biopsies: Labeled ileum terminal . Received in formalin, is an approximately 0.3 cm in greatest diameter soft, ramos-pink tissue fragment, which is wrapped in paper and submitted in toto in one cassette, one piece, multiple levels. B. Colon, random colon biopsies: Labeled random colon . Received in formalin, are multiple irregular soft, ramos-pink to red tissue fragments, approximately ranging from 0.1 cm to 0.7 cm in greatest diameters and aggregating to 0.8 x 1.1 x 0.2 cm. The specimen is wrapped in paper and submitted in toto in one cassette, multiple pieces, multiple levels. dvb/SL 04/16/2024 9:19 AM [facility] Disclaimer Unless otherwise specified, all tissue is 10% NB formalin fixed and paraffin embedded. 04/16/2024 9:19 AM [facility] Tissue Ileal structure / Unknown 04/15/2024 8:59 AM EST 04/15/2024 9:43 AM EST Tissue specimen (specimen) (Colon) 04/15/2024 9:00 AM EST 04/15/2024 9:43 AM EST Hilary Diallo DO LAB PATHOLOGY [facility]A [facility] [address] [place] [address], * External CT Report (04/15/2024) Anatomical Region Laterality Modality Computed Tomogra phy Provider Onbase IMG CT PROCEDURES * (ABNORMAL) C-reactive protein (04/14/2024 5:46 AM EST) C-Reactive Protein 0.89(H) <=0.50 mg/dL LAB CHEMISTRY METHOD 04/14/2024 4:33 PM EST [facility] Blood Venous blood specimen / Unknown Venipuncture / Unknown 04/14/2024 5:46 AM EST 04/14/2024 6:44 AM EST Master Tracy MD LAB BLOOD ORDERABLES [facility] ([facility]) [facility] [address] [place] [address], [place] [phone] * CT Abdomen Pelvis w Contrast (04/12/2024 4:31 PM EST) Anatomical Region Laterality Modality Body Computed Tomogra phy 04/12/2024 5:05 PM EST Impressions 04/12/2024 5:05 PM EST Impression: 1. Small-bowel enteritis including the terminal ileum as described consider Crohn's disease. Mesenteric vessels are patent. Partial obstructing component likely present. No evidence of bowel necrosis. Decompressed left hemicolon can not exclude mild colitis. Appendix not identified. 2. Indeterminate hyperdensity fundus of stomach as described. This document has been electronically signed by: Stalin Gracia MD on 04/12/2024 17:05:01 Narrative 04/12/2024 5:[address] abdomen and pelvis with IV contrast Comparison: None Findings: Lung bases show no active disease. No dependent layering pleural effusions. The heart is not enlarged. Coronary artery calcifications: None. Liver normal size and contour. No focal hepatic lesions. Patent hepatic and portal veins. Physiologic distention of the gallbladder with no radiopaque gallstones. Homogeneous enhancement of the pancreas. No splenomegaly. Normal adrenal glands. Symmetrical renal excretion with no segmental or diffuse renal parenchymal disease or evidence of obstructive uropathy/hydroureteronephrosis. Normal caliber abdominal aorta. Small-bowel enteritis with probable mild stricture involving the distal 3rd of the ileum consider Crohn's disease. A partial obstructing component is likely present. No free air. Appendix not identified. No significant diverticular disease. The left hemicolon is decompressed can not exclude mild colitis. Hyperdensity within the fundus of the stomach probably ingested material can not exclude a site of gastrointestinal hemorrhage. This needs clinical assessment. No intraperitoneal, retroperitoneal, pelvic or inguinal masses lymphadenopathy or abnormal fluid collections. Decompressed urinary bladder. Probable collapsing cyst left ovary measuring 2 cm. No vertebral body compression fractures or spondylolisthesis. No bony destructive lesions. Procedure Note Stalin Gracia MD - 04/12/2024 CT abdomen and pelvis with IV contrast Comparison: None Findings: Lung bases show no active disease. No dependent layering pleural effusions. The heart is not enlarged. Coronary artery calcifications: None. Liver normal size and contour. No focal hepatic lesions. Patent hepatic and portal veins. Physiologic distention of the gallbladder with no radiopaque gallstones. Homogeneous enhancement of the pancreas. No splenomegaly. Normal adrenal glands. Symmetrical renal excretion with no segmental or diffuse renal parenchymal disease or evidence of obstructive uropathy/hydroureteronephrosis. Normal caliber abdominal aorta. Small-bowel enteritis with probable mild stricture involving the distal 3rd of the ileum consider Crohn's disease. A partial obstructingcomponent is likely present. No free air. Appendix not identified. No significant diverticular disease. The left hemicolon is decompressed can not exclude mild colitis. Hyperdensity within the fundus of the stomach probably ingested material can not exclude a site of gastrointestinal hemorrhage. This needs clinical assessment. No intraperitoneal, retroperitoneal, pelvic or inguinal masses lymphadenopathy or abnormal fluid collections. Decompressed urinary bladder. Probable collapsing cyst left ovary measuring 2 cm. No vertebral body compression fractures or spondylolisthesis. No bony destructive lesions. IMPRESSION: Impression: 1. Small-bowel enteritis including the terminal ileum as described consider Crohn's disease. Mesenteric vessels are patent. Partial obstructing component likely present. No evidence of bowel necrosis. Decompressed left hemicolon can not exclude mild colitis. Appendix not identified. 2. Indeterminate hyperdensity fundus of stomach as described. 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 Health Care Decision (hx) 09/11/2017 AD HODGE DIRECTIVE Health Care Decision (hx) 09/11/2017 AD HODGE DIRECTIVE Health Care Decision (hx) 09/11/2017 AD HODGE DIRECTIVE Health Care Decision (hx) 09/11/2017 AD HODGE DIRECTIVE Health Care Decision (hx) 09/11/2017 AD HODGE DIRECTIVE Health Care Decision (hx) 09/11/2017 AD HODGE DIRECTIVE Health Care Decision (hx) 09/11/2017 AD HODGE DIRECTIVE Health Care Decision (hx) 09/11/2017 AD HODGE DIRECTIVE Health Care Decision (hx) 09/11/2017 AD HODGE DIRECTIVE Health Care Decision (hx) 09/11/2017 AD HODGE DIRECTIVE Health Care Decision (hx) 09/11/2017 AD HODGE DIRECTIVE Health Care Decision (hx) 09/11/2017 AD HODGE DIRECTIVE * Full Code - Confirmed (Latest Code Status on File) Date Activated Date Inactivated Comments 04/12/2024 8:33 PM 04/19/2024 6:59 PM This code s tatus was ascertained in the following way: Code status discussion: discussion with patient To update the patient's code status, place a code status order. Do not modify or discontinue any currently active code status orders. Care Teams Resident Care Manager Relationship Specialty Start Date End Date Larry Reed NP [address] [place] [phone] PCP - General Family Medicine 05/26/24
--- OUTSIDE RECORDS SUMMARY | 2024-06-10 12:19 | XMS_ITS | Encounter Summary ---
Author Organization [employer] Address [address] [place] [address] Care Team Providers Care Aerobics Teacher Name Role Phone Larry Reed NP Primary Care Provider [phone] Reason for Visit * Reason Comments Abdominal Pain Encounter Details Date Type Department Care Team (Late st Contact Info) Description 05/26/2024 9:56 AM EST - 05/26/2024 1:10 PM EST Emergency [facility] Emergency [address] [place] [phone] Claudio Roberts MD [address] [place] [address] Generalized abdominal pain (Primary Dx) Discharge Disposition: Home or Self Care Social History Tobacco Use Types Packs/Day Years Used Date Smoking Tobacco: Every Day Cigarettes 0.5 6.1 Started: 05/14/2018 Smokeless Tobacco: Never Comments:Offered nicotine pa tch pt declined Alcohol Use Standard Drinks/Week Comments [...] file Not on file Not on file documented as of this encounter Last Filed Vital Signs Vital Sign Reading [...] Mass Index 24.3 05/26/2024 12:30 AM EST documented in this encounter Functional Status Functional Status Response Date of Assess ment Are you blind or do you have serious difficulty seeing, even when wearing glasses? No 04/12/2024 Do you have serious difficul ty walking or climbing stairs? No 04/12/2024 Do you have serious difficulty dressing or bathi ng? No 04/12/2024 Because of a physical, menta l, or emotional condition, do you have serious difficulty doing errands alone such as visiting the doctor? No 04/12/2024 Cognitive Status Response Date of Assessm ent Because of a physical, menta l, or emotional condition, do you have serious difficulty concentrating, remembering, or making decisions? (5 years old or older) No 04/12/2024 documented as of this encounter Discharge Instructions * Discharge Instructions* Claudio Roberts MD - 05/26/2024 11:37 AM EST Take prednisone as prescribed. Take omeprazole daily while on this medication. Be sure to call your creative/art director for appointment as soon as available. We consulted Dr. Diallo's coverage today, Dr. Berkowitz, who recommended outpatient visit as soon as available. * Attachments The following attachments cannot be sent through Care Everywhere. * Abdominal Pain (Armenian) documented in this encounter Medications at Time of Discharge Medication Sig Dispensed Refills Start Date End Date predniSONE (DELTASONE) 10 mg tablet 4 tabs daily for 4 days, 3 tabs daily for 4 days, 2 tabs daily for 4 days, 1 tab daily for 4 days 40 tablet 05/26/2024 documented as of this encounter Ordered Prescriptions Prescription Sig Dispensed Refills Start Date End Da te predniSONE (DELTASONE) 10 mg tablet 4 tabs daily for 4 days, 3 tabs daily for 4 days, 2 tabs daily for 4 days, 1 tab daily for 4 days 40 tablet 05/26/2024 documented in this encounter Discharge Disposition Disposition Code Departure Means Destination Comment s Home or Self Care documented in this encounter Progress Notes * Shayla Wilson RN - 05/26/2024 12:27 AM EST Presents c/o diffused abd pain that started 3 days ago. Pt states she has hx of chron's and states this feels like a flare up. Also c/o nausea * Claudio Roberts MD - 05/26/2024 12:25 AM EST HPI Chief Complaint Patient presents with ??? Abdominal Pain Patient with abdominal pain over the last 3 to 4 days. She has a history of chronic intermittent abdominal pain and was hospitalized with enteritis and colitis a little over a month ago. Although review of biopsies showed nonspecific results, she was apparently diagnosed with Crohn's disease. She is due to see her creative/art director in June to start treatment. She states she was on prednisone for approximately 28 days and was pain-free during that time. Since stopping the prednisone she states the pain is gradually returned and is been more significant over the past 3 to 4 days. No nausea or vomiting. No diarrhea or constipation. Last normal bowel movement was yesterday. No melena or bright red blood per rectum. Pain is left mid upper abdomen. No fevers or chills. [place] Coma Scale Score: 15 Patient History Past Medical History: Diagnosis Date ??? Bowel obstruction (CMS/HCC) ??? Colitis ??? Heart murmur Past Surgical History: Procedure Laterality Date ??? SECTION ??? SECTION, LOW TRANSVERSE ??? TUBAL LIGATION No family history on file. Social History Tobacco Use ??? Smoking status: Every Day Current packs/day: 0.50 Average packs/day: 0.5 packs/day for 6.0 years (3.0 ttl pk-yrs) Types: Cigarettes Start date: 05/14/2018 ??? Smokeless tobacco: Never ??? Tobacco comments: Offered nicotine patch pt declined Substance Use Topics ??? Alcohol use: Not Currently ??? Drug use: Never Review of Systems Review of Systems Constitutional: Negative for appetite change, chills and fever. Cardiovascular: Negative for chest pain. Gastrointestinal: Positive for abdominal pain. Negative for abdominal distention, anal bleeding, blood in stool, constipation, diarrhea, nausea and vomiting. Genitourinary: Negative for dysuria. Physical Exam ED Triage Vitals [05/26/24 0030] Temp Heart Rate Resp BP 36.8 ??C (98.2 ??F) 89 16 132/71 SpO2 Temp Source Heart Rate Source Patient Position 99 % Oral -- -- BP Location FiO2 (%) -- -- Physical Exam Constitutional: Appearance: She is well-developed. HENT: Head: Normocephalic and atraumatic. Cardiovascular: Rate and Rhythm: Normal rate and regular rhythm. Pulmonary: Effort: Pulmonary effort is normal. Breath sounds: Normal breath sounds. Abdominal: General: Abdomen is flat. There is no distension or abdominal bruit. Comments: Abdomen is soft, nondistended. Neurological: Mental Status: She is alert. ED Course & MDM Clinical Impressions as of 05/26/24 1141 Generalized abdominal pain Medical Decision Making Patient with apparent history of Crohn's disease and possible flare. Overall looks well without symptoms of infection. Abdomen is not significantly tender. Labs are reassuring. No evidence of bleeding. Will consult gastroenterology. 11:25 AM. [facility]. Agree with plan to start steroid taper Procedures Claudio Roberts MD 05/26/24 1141 documented in this encounter Plan of Treatment Upcoming Encounters Date Type Department Care Team (Late st Contact Info) Description 06/12/2024 9:20 AM EST Office Visit Gastroenterology - [place] 175 [facility] 175 [facility] [address] [place] [phone] Stacia Pavon NP 175 [facility] [address] [place] [address] documented as of this encounter Procedures Procedure Name Priority Date/Time Associated Diagnosis Comments POC , URINE DIAGNOSTIC STAT 05/26/2024 12:44 AM EST CBC WITH AUTO DIFFERENTIAL STAT 05/26/2024 12:40 AM EST CBC AND DIFFERENTIAL STAT 05/26/2024 12:40 AM EST LIPASE STAT 05/26/2024 12:40 AM EST COMPREHENSIVE METABOLIC PANEL STAT 05/26/2024 12:40 AM EST documented in this encounter Results * POC , urine manually resulted (05/26/2024 12:44 AM EST) Pathologist [facility] HCG, Ur POC Negative Negative POC hCG Int QC Pass? Yes Yes EXPIRATION DATE POC 10/09/2025 LOT NUMBER POC [id number] Urine Urine specimen obtained by clean catch procedure / Unknown 05/26/2024 12:44 AM EST Claudio Roberts MD POINT OF CARE TEST E NTER/EDIT ORDERABLES * (ABNORMAL) CBC auto differential (05/26/2024 12:40 AM EST) [facility] WBC 7.6 4.8 - 10.8 K/mcL LAB HEMETOLOGY METHOD 05/26/2024 12:57 AM [facility] RBC 4.20 3.80 - 4.80 M/mcL LAB HEMETOLOGY METHOD 05/26/2024 12:57 AM [facility] Hemoglobin 11.9 11.5 - 16.0 g/dL LAB HEMETOLOGY METHOD 05/26/2024 12:57 AM [facility] Hematocrit 37.3 35.0 - 47.0 % LAB HEMETOLOGY METHOD 05/26/2024 12:57 AM [facility] MCV 88.8 79.0 - 98.0 FL LAB HEMETOLOGY METHOD 05/26/2024 12:57 AM [facility] MCH 28.3 27.0 - 32.0 pcg LAB HEMETOLOGY METHOD 05/26/2024 12:57 AM [facility] MCHC 31.9(L) 32.0 - 37.0 g/dL LAB HEMETOLOGY METHOD 05/26/2024 12:57 AM [facility] RDW 13.1 11.0 - 15.0 % LAB HEMETOLOGY METHOD 05/26/2024 12:57 AM [facility] Platelets 403(H) 130 - 400 K/mcL LAB HEMETOLOGY METHOD 05/26/2024 12:57 AM [facility] MPV 10.2 7.0 - 11.0 FL LAB HEMETOLOGY METHOD 05/26/2024 12:57 AM [facility] NRBC 0.0 <1.0 % LAB HEMETOLOGY METHOD 05/26/2024 12:57 AM [facility] NRBC Absolute 0.00 <0.10 K/mcL LAB HEMETOLOGY METHOD 05/26/2024 12:57 AM [facility] Neutrophils Relative 61.8 % LAB HEMETOLOGY METHOD 05/26/2024 12:57 AM [facility] Lymphocytes Relative 30.1 % LAB HEMETOLOGY METHOD 05/26/2024 12:57 AM [facility] Monocytes Relative 6.7 % LAB HEMETOLOGY METHOD 05/26/2024 12:57 AM [facility] Eosinophils Relative 0.8 % LAB HEMETOLOGY METHOD 05/26/2024 12:57 AM [facility] Basophils Relative 0.1 % LAB HEMETOLOGY METHOD 05/26/2024 12:57 AM [facility] Immature Granulocytes Relative 0.5 % LAB HEMETOLOGY METHOD 05/26/2024 12:57 AM [facility] Neutrophils Absolute 4.71 1.50 - 7.00 K/mcL LAB HEMETOLOGY METHOD 05/26/2024 12:57 AM [facility] Lymphocytes Absolute 2.29 1.00 - 5.00 K/mcL LAB HEMETOLOGY METHOD 05/26/2024 12:57 AM EST [facility] Monocytes Absolute 0.51 0.20 - 1.00 K/[facility] LAB HEMETOLOGY METHOD 05/26/2024 12:57 AM EST [facility] Eosinophils Absolute 0.06 0.00 - 0.50 K/[facility] LAB HEMETOLOGY METHOD 05/26/2024 12:57 AM EST [facility] Basophils Absolute 0.01 0.00 - 0.20 K/[facility] LAB HEMETOLOGY METHOD 05/26/2024 12:57 AM EST [facility] Immature Granulocytes Absolute 0.04(H) 0.00 - 0.03 K/[facility] LAB HEMETOLOGY METHOD 05/26/2024 12:57 AM EST [facility] Blood Venous blood specimen / Unknown Venipuncture / Unknown 05/26/2024 12:40 AM EST 05/26/2024 12:53 AM EST Claudio Roberts MD LAB BLOOD ORDERABLES [facility] [address] [place] [address], [place] [phone] * Lipase (05/26/2024 12:40 AM EST) Pathologist [facility] Lipase 48 13 - 75 unit/L LAB CHEMISTRY METHOD 05/26/2024 1:17 AM EST [facility] Blood Venous blood specimen / Unknown Venipuncture / Unknown 05/26/2024 12:40 AM EST 05/26/2024 12:53 AM EST Claudio Roberts MD LAB BLOOD ORDERABLES [facility] [address] [place] [address], [place] [phone] * (ABNORMAL) Comprehensive metabolic panel (05/26/2024 12:40 AM EST) Sodium 138 133 - 145 mmol/L LAB CHEMISTRY METHOD 05/26/2024 1:41 AM [facility] Potassium 4.2 3.5 - 5.5 mmol/L LAB CHEMISTRY METHOD 05/26/2024 1:41 AM [facility] Chloride 106 96 - 110 mmol/L LAB CHEMISTRY METHOD 05/26/2024 1:41 AM [facility] CO2 29 21 - 32 mmol/L LAB CHEMISTRY METHOD 05/26/2024 1:41 AM [facility] Anion Gap 3 3 - 11 LAB CHEMISTRY METHOD 05/26/2024 1:41 AM [facility] Glucose 107(H) 70 - 100 mg/dL LAB CHEMISTRY METHOD 05/26/2024 1:41 AM [facility] BUN 16 5 - 25 mg/dL LAB CHEMISTRY METHOD 05/26/2024 1:41 AM [facility] Creatinine 0.79 0.50 - 1.10 mg/dL LAB CHEMISTRY METHOD 05/26/2024 1:41 AM [facility] eGFR 98 >=60 mL/min/1. 73m2 LAB CHEMISTRY METHOD 05/26/2024 1:41 AM [facility] Comment:Calculation based on the??Chronic Kidney Disease Epidemiology Collaboration (CKD-EPI) equation refit??without adjustment for race. BUN/Creatinine Ratio 20.3 LAB CHEMISTRY METHOD 05/26/2024 1:41 AM [facility] Calcium 9.3 8.5 - 10.5 mg/dL LAB CHEMISTRY METHOD 05/26/2024 1:41 AM [facility] AST (SGOT) 15 10 - 42 unit/L LAB CHEMISTRY METHOD 05/26/2024 1:41 AM [facility] ALT (SGPT) 33 10 - 60 unit/L LAB CHEMISTRY METHOD 05/26/2024 1:41 AM [facility] Alkaline Phosphatase 76 42 - 121 unit/L LAB CHEMISTRY METHOD 05/26/2024 1:41 AM EST [facility] Total Protein 7.1 6.0 - 8.0 g/dL LAB CHEMISTRY METHOD 05/26/2024 1:41 AM EST [facility] Albumin 3.6 3.2 - 5.0 g/dL LAB CHEMISTRY METHOD 05/26/2024 1:41 AM [facility] Total Bilirubin <0.1 0.0 - 1.4 mg/dL LAB CHEMISTRY METHOD 05/26/2024 1:41 AM EST [facility] Blood Venous blood specimen / Unknown Venipuncture / Unknown 05/26/2024 12:40 AM EST 05/26/2024 12:53 AM EST Claudio Roberts MD LAB BLOOD ORDERABLES Performing Organization Address City/State/[facility] Co de Phone Number [facility] [address] [place] [address], documented in this encounter Visit Diagnoses Diagnosis Generalized abdominal pain- Primary Abdominal pain, generalized documented in this encounter Administered Medications Inactive Administered Medications - up to 3 most recent administrations Medication Order MAR Action Action Date Dose Rate Site ketorolac (TORADOL) injection 15 mg 15 mg, intramuscular, Once, On Sun05/26/24 at 1139, For 1 dose Given 05/26/2024 11:54 AM EST 15 mg Left Anterior Thigh documented in this encounter Active and Recently Administered Medications Times are shown in EST. Scheduled Medication Order 05/24/2024 05/25/2024 05/26/2024 ketorolac (TORADOL) injection 15 mg (COMPLETED) 15 mg, intramuscular, Once, On Sun05/26/24 at 1139, For 1 dose 1154 (Given - Provid er: Keke Nichols RN) documented in this encounter Orders Medications Ordered That Jean Carlos ht Not Have Been Administered Count Last Ordered Date First Ordered Date aluminum-magnesium hydroxide -simethicone (MAALOX) 200-200-20 mg/5 mL suspension 30 mL 1 05/26/2024 ketorolac (TORADOL) injection 15 mg 1 05/26 documented in this encounter Care Teams Aerobics Teacher Relationship Specialty Start Date End Date Larry Reed NP [address] [place] [address] PCP - General Family Medicine 05/26/24 documented as of this encounter
== END 2024-06-10 11:23 | disposition home or self-care (01) ==
LOC: HO.HMCC 11:04
PROVIDERS: PCP Nurse Practitioner Family; Visit Provider Nurse Practitioner Family
DX: E53.8 Deficiency of other specified B group vitamins (principal)

== ENCOUNTER → 2024-06-10 11:04 | Outpatient (BNVA) | payer OTHER, SELFPAY | PROVIDERS: PCP Nurse Practitioner Family; Visit Provider Nurse Practitioner Family | DX: E53.8 Deficiency of other specified B group vitamins (principal) | CPT/HCPCS: 96372; J3420 ==

== ENCOUNTER 2024-07-16 10:38 | Outpatient (AMB) | payer OTHER, SELFPAY ==
--- NOTE | 2024-07-16 11:00 | AM.OFFVISNUR ---
Intake Visit Reasons: B-12 Intake Note: Pt arrived for weekly B-12 injection. #1 of 4. Office Assistant Required: No Allergies No Known Allergies Allergy (Verified 07/16/24 11:01) Medication List - Last Reconciled 07/16/24 by Sheila Velez RN cyanocobalamin (vitamin B-12) 1,000 mcg IM .weekly omeprazole 20 mg PO DAILY 90 days valacyclovir (Valtrex) 500 mg PO BID 3 days Office Meds cyanocobalamin (vitamin B-12) 1,000 mcg/mL injection solution Performing Provider: GAYATHRI Luna [place]forming [place] [facility] [place] [facility] Administered by: Sheila Velez RN on 07/16/24 11:06 Dose Route Admin Location Dispensed Lot Number Expiration Date [facility] [employer] 1,000 mcg IM left deltoid 1 mL [id number] 09/11/25 [id number] [employer] Comments: Pt supplied Assessment & Plan Assessment & Plan Orders: Orders AMB Vitamin B12 Injection Patient Supplied Today E53.8 - Deficiency of other specified B group vitamins Medications: New cyanocobalamin (vitamin B-12) 1,000 mcg IM ONCE 1 mL 0RF E53.8 - Deficiency of other specified B group vitamins Coding
--- OUTSIDE RECORDS SUMMARY | 2024-07-16 12:40 | XMS_ITS | Encounter Summary ---
Author Organization [employer] Address [address] [place] [address] Care Team Providers Care Bow Tacker Name Role Phone Maye Mitchell MD Primary Care Provider [phone] Reason for Visit * Reason Onset Date Comments provider call back 06/25/2024 Encounter Details Date Type Department Care Team (Late st Contact Info) Description 06/25/2024 Telephone Gastroenterology - [place] 175 [facility] 175 [facility] [address] [place] [address] Stacia Pavon NP 175 [facility] [address] [place], [place] [id number] provider call back Social History Tobacco Use Types Packs/Day Years Used Date Smoking Tobacco: Every Day Cigarettes 0.5 6.2 Started: 05/14/2018 Smokeless Tobacco: Never Comments:Offered nicotine pa tch pt declined Alcohol Use Standard Drinks/Week Comments Not Currently 0 (1 standard drink = 0.6 oz pur e alcohol) Interpersonal Safety Answer Date Record ed Physical Abuse 04/15/2024 Verbal Abuse 04/15/2024 Comments No Sex and Gender Information Value Date Recorded Sex Assigned at Not on file Legal Sex Female 11:14 AM EST Gender Identity Not on file Sexual Orientation Not on file 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 Answer Date of Assessment Author No 04/12/2024 7:45 PM EST Main Dockery RN * Do you have serious difficulty walking or climbing stairs? Answer Date of Assessment Author No 04/12/2024 7:45 PM Main Alejandro RN * Do you have serious difficulty dressing or bathing? Answer Date of Assessment Author No 04/12/2024 7:45 PM Main Alejandro RN * Because of a physical, mental, or emotional condition, do you have serious difficulty doing errandsalone such as visiting the doctor? Answer Date of Assessment Author No 04/12/2024 7:45 PM Main Alejandro RN documented as of this encounter Mental Status * Because of a physical, mental, or emotional condition, do you have serious difficulty concentrating, remembering, or making decisions? (5 years old or older) Answer Entry Date Author No 04/12/2024 7:45 PM Main Alejandro RN documented in this encounter Progress Notes * Ena Woo LPN - 06/25/2024 1:14 PM EST [facility] scheduled appt with pt for 07/02/24. * Feli Johnson - 06/25/2024 9:20 AM EST Patient calling states she finished her labs, when does she start treatment for crohns, please advise documented in this encounter Plan of Treatment Upcoming Encounters Date Type Department Care Team (Late st Contact Info) Description 07/23/2024 9:30 AM EDT Appointment [facility] [address] [phone] 08/06/2024 9:30 AM EDT Appointment [facility] [address] [phone] 09/11/2024 8:40 AM EDT Office Visit Gastroenterology - [place] 175 [facility] 175 [facility] [address] [place] [phone] Stacia Pavon, MCKENNA 175 [facility] [address] [place] [address] documented as of this encounter Visit Diagnoses Not on filedocumented in this encounter Care Teams Bow Tacker Relationship Specialty Start Date End Date Maye Mitchell MD [address] [facility] , [address] [facility] [place] PCP - General Internal Medicine 06/25/24 documented as of this encounter
--- OUTSIDE RECORDS SUMMARY | 2024-07-16 12:40 | XMS_ITS | Clinical Summary ---
Author Organization [facility] Address [address] [place] [address] Phone Care Team Providers Care Financial Compliance Examiner Name Role Phone Maye Mitchell MD Primary Care Provider [phone] Allergies No known active allergies Medications cyanocobalamin (VITAMIN B-12) 1,000 mcg/mL injection INJECT 1 VIAL INTRAMUSCULARLY WEEKLY WEEKLY X 4 WEEKS 06/09/19 25 Active valACYclovir (VALTREX) 500 mg tablet TAKE 1 TABLET BY MOUTH TWICE A DAY FOR 3 DAYS, TAKE WITH ONSET OF SYMPTOMS, THEN ONCE A DAY 05/22/19 25 Active omeprazole (PriLOSEC) [address] capsule Take 1 capsule (20 mg total) by mouth 1 (one) time each day. for 90 days 90 each 3 06/12/19 25 026 Active predniSONE (DELTASONE) 10 mg tablet Take 5 tablets (50 mg total) by mouth 1 (one) time each day for 1 day, THEN 4 tablets (40 mg total) 1 (one) time each day for 1 day, THEN 3 tablets (30 mg total) 1 (one) time each day for 1 day, THEN 2 tablets (20 mg total) 1 (one) time each day for 1 day, THEN 1 tablet (10 mg total) 1 (one) time each day for 1 day. Take by mouth as directed. 15 tablet 06/13/19 25 025 Active Problems Problem Noted Date Diagnosed Date Crohn's disease with complication 06/20/2024 Suspected inflammatory bowel disease 04/19/2024 Heart murmur Resolved Problems Problem Noted Date Diagnosed Date Resolved Date Partial bowel obstruction 04/12/2024 Encounters Date Type Department Care Team Description 06/25/2024 Telephone Gastroenterology [facility] [address] [facility] [address] [address] Staica Pavon NP provider call back 06/12/2024 9:20 AM EST Office Visit Gastroenterology [facility] 175 [facility] [address] [address] Stacia Pavon NP Crohn's disease of colon without complication (CMS/HCC) (Primary Dx); Gastroesophageal reflux disease without esophagitis 06/12[facility] [address] [phone] Stacia Pavon NP 05/26/2024 9:56 AM EST - 05/26/2024 1:10 PM EST Emergency [facility] [address] [place] [address] Claudio Roberts MD Generalized abdominal pain (Primary Dx) Discharge Disposition: Home or Self Care 04/12/2024 1:55 PM EST - 04/19/2024 4:54 PM EST Hospital Encounter [facility] [address] [place] [address] Kurt Burden MD [place]osadze, Estate, MD [place], [...] 0.5 6.2 Started: 05/14/2018 Smokeless Tobacco: Never Tobacco Cessation:Ready [...] 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 Not on file Not on file Obstetrics History Last Filed Vital Signs Vital Sign Reading Time Taken Comments Blood Pressure 115/75 06/12/2024 9:21 AM EST Pulse 91 06/12/2024 9:21 AM EST Temperature 36.8 ??C (98.2 ??F) 05/26/2024 12:[address] Respiratory Rate 18 05/26/2024 11:22 AM EST Oxygen Saturation 98% 06/12/2024 9:21 AM EST Inhaled Oxygen Concentration - - Weight 68.9 kg (152 lb) 06/12/2024 9:21 AM EST Height 165.1 cm (5' 5 ) 06/12/2024 9:21 AM EST Body Mass Index 25.29 06/12/2024 9:21 AM EST Plan of Treatment Upcoming Encounters Date Type Department Care Team (Late st Contact Info) Description 07/23/2024 9:30 AM EDT Appointment [facility] [address] [phone] 08/06/2024 9:30 AM EDT Appointment [facility] [address] [phone] 09/11/2024 8:40 AM EDT Office Visit Gastroenterology - [place] 175 [facility] 175 [facility] [address] [place] [phone] Stacia Pavon, MCKENNA 175 [facility] [place] [address] Health Maintenance Due Date Last Done Comments Hepatitis B Vaccines (1 of 3 - 19+ 3-dose series) 2004 Pneumococcal Vaccine: Pediatrics (0 to 5 Years) and At-Risk Patients (6 to 64 Years) (1 of 2 - PCV) 2004 Cervical Cancer Screening: Pap Smear 2006 Cholesterol Screening (Lipid Panel) 04/11/2022 Depression Screening 04/11/2022 HIV Screening 04/11/2022 Hepatitis C Screening 04/11/2022 Social Influencers of Health Screening 04/11/2022 COVID-19 Vaccine ( season) 2024 07/04/2021, 06/12/2020, 05/22/2020 Influenza Vaccine (#1) 2024 , 03/29/2022, 03/24/2018, Additional history exists DTaP,Tdap,and Td [...] patient's age to complete this topic Meningococcal B Vacine Aged Out No lo nger eligible based on patient's age to complete this topic RSV Immunization Patients Under 20 months Aged Out No longer eligible based on patient's age to complete this topic Varicella Vaccines Aged Out No longer eligible based on patient's age to complete this topic Procedures Procedure Name Priority Date/Time Associated Diagnosis Comments INTERFERON GAMMA INTERPRETATION Routine 06/12/2024 10:00 AM EST Crohn's disease of colon without complication (CMS/HCC) INTERFERON GAMMA ANTIGEN 2 Routine 06/12/2024 10:00 AM EST Crohn's disease of colon without complication (CMS/HCC) INTERFERON GAMMA ANTIGEN 1 Routine 06/12/2024 10:00 AM EST Crohn's disease of colon without complication (CMS/HCC) INTERFERON GAMMA MITOGEN Routine 06/12/2024 10:00 AM EST Crohn's disease of colon without complication (CMS/HCC) INTERFERON GAMMA NIL Routine 06/12/2024 10:00 AM EST Crohn's disease of colon without complication (CMS/HCC) INTERFERON GAMMA FOR TB, QUALITATIVE Routine 06/12/2024 10:00 AM EST Crohn's disease of colon without complication (CMS/HCC) HEPATITIS B VIRUS PCR QUANTITATIVE Routine 06/12/2024 10:00 AM EST Crohn's disease of colon without complication (CMS/HCC) SEDIMENTATION RATE Routine 06/12/2024 10 :00 AM EST Crohn's disease of colon without complication (CMS/HCC) C-REACTIVE PROTEIN Routine 06/12/2024 10 :00 AM EST Crohn's disease of colon without complication (CMS/HCC) POC , URINE DIAGNOSTIC STAT 05/26/2024 12:44 [...] AND DIFFERENTIAL Routine 04/18/2024 5:49 AM EST from Last 3 Months Results * Interferon gamma interpretation (06/12/2024 10:00 AM EST) Pathologist [facility] Quantiferon Plus Interpretation Negative Negative LAB CHEMISTRY METHOD 06/14/2024 2:02 PM EST [facility] Blood Venous blood specimen / Unknown Venipuncture / Unknown 06/12/2024 10:00 AM EST 06/12/2024 12:42 PM EST us Stacia Pavon [employer] LAB BLOOD ORDERABLES Final Resu lt [facility] [address] [place] [address], [place] [phone] * Interferon gamma antigen 2 (06/12/2024 10:00 AM EST) Blood Venous blood specimen / Unknown Venipuncture / Unknown 06/12/2024 10:00 AM EST 06/12/2024 12:42 PM EST us Stacia Pavon NP LAB BLOOD ORDERABLES Final Resu lt [facility] [address] [place] [address], [place] [phone] * Inteferon gamma antigen 1 (06/12/2024 10:00 AM EST) Blood Venous blood specimen / Unknown Venipuncture / Unknown 06/12/2024 10:00 AM EST 06/12/2024 12:42 PM EST us Stacia Pavon [employer] LAB BLOOD ORDERABLES Final Resu lt [facility] [address] [place] [address], [place] [phone] * Interferon gamma mitogen (06/12/2024 10:00 AM EST) Blood Venous blood specimen / Unknown Venipuncture / Unknown 06/12/2024 10:00 AM EST 06/12/2024 12:42 PM EST us Stacia Pavon [employer] LAB BLOOD ORDERABLES Final Resu lt [facility] [address] [place] [address], * Interferon gamma NIL (06/12/2024 10:00 AM EST) Blood Venous blood specimen / Unknown Venipuncture / Unknown 06/12/2024 10:00 AM EST 06/12/2024 12:42 PM EST Stacia Pavon NP LAB BLOOD ORDERABLES Final Resu lt [facility] [address] [place] [address], * Hepatitis B virus molecular study quantitative (06/12/2024 10:00 AM EST) Pathologist [facility] Hepatitis B Virus DNA Qualitative Not detected Not detected 06/16/2024 11:39 AM EST [facility] Hepatitis B Virus DNA, Quantitative <10 <10 IU/mL 06/16/2024 11:39 AM EST [facility] Log Hepatitis B Virus DNA <1.00 <1.00 Log (10) IU/mL 06/16/2024 11:39 AM EST [facility] Comment: This procedure utilizes a real-time polymerase chain reaction test from [employer]. ??The amplification target is a conserved region in the terminal third of the hepatitis B surface antigen gene. The lower limit of quantitation is 10 IU/mL (1.00 Log IU/mL) and the uppper limit of quantitation is 1 billion IU/mL (9.00 Log IU/mL). The qualitative limit of detection is 10 IU/mL (1.00 Log IU/mL). A Not detected result does not rule out infection. Test performed at [facility], [address], [place], [place] ??[address] ? [phone] Lauren Avery MD, PhD - Medical Practice Manager Blood Venous blood specimen / Unknown Venipuncture / Unknown 06/12/2024 10:00 AM EST 06/12/2024 12:42 PM EST us Stacia Pavon NP LAB BLOOD ORDERABLES Final Resu lt [facility] [address] [place] [address] * Sedimentation rate (06/12/2024 10:00 AM EST) Pathologist [facility] Sed Rate 14 0 - 20 mm/hr LAB HEMETOLOGY METHOD 06/12/2024 2:21 PM EST [facility] Blood Venous blood specimen / Unknown Venipuncture / Unknown 06/12/2024 10:00 AM EST 06/12/2024 12:42 PM EST Stacia Pavon LAB BLOOD ORDERABLES Final Resu lt Performing Organization Address [facility]/ZIP Co de Phone Number [facility] [address] [place] [address], [place] [phone] * C-reactive protein (06/12/2024 10:00 AM EST) [facility] C-Reactive Protein <0.29 <=0.50 mg/dL LAB CHEMISTRY METHOD 06/12/2024 2:56 PM EST [facility] Blood Venous blood specimen / Unknown Venipuncture / Unknown 06/12/2024 10:00 AM EST 06/12/2024 12:42 PM EST Stacia Pavon LAB BLOOD ORDERABLES Final Resu lt Performing Organization Address City/[facility]/ZIP Co de Phone Number [facility] [address] [place] [address], [place] [phone] * POC , urine manually resulted (05/26/2024 12:44 AM EST) Pathologist [facility] HCG, Ur POC Negative Negative POC hCG Int QC Pass? Yes Yes EXPIRATION DATE POC 10/09/2025 LOT NUMBER POC [id number] Urine Urine specimen obtained by clean catch procedure / Unknown 05/26/2024 12:44 AM EST Claudio Roberts MD POINT OF CARE TEST ENTER/EDIT ORDERABLES Final Result * (ABNORMAL) CBC auto differential (05/26/2024 12:40 AM EST) Only the most recent of2 resultswithin the time period is included. WBC 7.6 4.8 - 10.8 K/mcL LAB HEMETOLOGY METHOD 05/26/2024 12:57 AM [facility] RBC 4.20 3.80 - 4.80 M/mcL LAB HEMETOLOGY METHOD 05/26/2024 12:57 AM [facility] Hemoglobin 11.9 11.5 - 16.0 g/dL LAB HEMETOLOGY METHOD 05/26/2024 12:57 AM [facility] Hematocrit 37.3 35.0 - 47.0 % LAB HEMETOLOGY METHOD 05/26/2024 12:57 AM [facility] MCV 88.8 79.0 - 98.0 FL LAB HEMETOLOGY METHOD 05/26/2024 12:57 AM [facility] MCH 28.3 27.0 - 32.0 pcg LAB HEMETOLOGY METHOD 05/26/2024 12:57 AM [facility] MCHC 31.9(L) 32.0 - 37.0 g/dL LAB HEMETOLOGY METHOD 05/26/2024 12:57 AM [facility] RDW 13.1 11.0 - 15.0 % LAB HEMETOLOGY METHOD 05/26/2024 12:57 AM [facility] Platelets 403(H) 130 - 400 K/mcL LAB HEMETOLOGY METHOD 05/26/2024 12:57 AM [facility] MPV 10.2 7.0 - 11.0 FL LAB HEMETOLOGY METHOD 05/26/2024 12:57 AM EST [facility] NRBC 0.0 <1.0 % LAB HEMETOLOGY METHOD 05/26/2024 12:57 AM [facility] NRBC Absolute 0.00 <0.10 K/mcL LAB HEMETOLOGY METHOD 05/26/2024 12:57 AM [facility] Neutrophils Relative 61.8 % LAB HEMETOLOGY METHOD 05/26/2024 12:57 AM [facility] Lymphocytes Relative 30.1 % LAB HEMETOLOGY METHOD 05/26/2024 12:57 AM [facility] Monocytes Relative 6.7 % LAB HEMETOLOGY METHOD 05/26/2024 12:57 AM [facility] Eosinophils Relative 0.8 % LAB HEMETOLOGY METHOD 05/26/2024 12:57 AM [facility] Basophils Relative 0.1 % LAB HEMETOLOGY METHOD 05/26/2024 12:57 AM [facility] Immature Granulocytes Relative 0.5 % LAB HEMETOLOGY METHOD 05/26/2024 12:57 AM [facility] Neutrophils Absolute 4.71 1.50 - 7.00 K/mcL LAB HEMETOLOGY METHOD 05/26/2024 12:57 AM [facility] Lymphocytes Absolute 2.29 1.00 - 5.00 K/mcL LAB HEMETOLOGY METHOD 05/26/2024 12:57 AM [facility] Monocytes Absolute 0.51 0.20 - 1.00 K/mcL LAB HEMETOLOGY METHOD 05/26/2024 12:57 AM [facility] Eosinophils Absolute 0.06 0.00 - 0.50 K/mcL LAB HEMETOLOGY METHOD 05/26/2024 12:57 AM [facility] Basophils Absolute 0.01 0.00 - 0.20 K/mcL LAB HEMETOLOGY METHOD 05/26/2024 12:57 AM [facility] Immature Granulocytes Absolute 0.04(H) 0.00 - 0.03 K/mcL LAB HEMETOLOGY METHOD 05/26/2024 12:57 AM EST [facility] Blood Venous blood specimen / Unknown Venipuncture / Unknown 05/26/2024 12:40 AM EST 05/26/2024 12:53 AM EST Claudio Roberts MD LAB BLOOD ORDERABLES Final Res ult Performing Organization Address [facility]/ZIP Co de Phone Number [facility] [address] [place] [address], [place] [phone] * Lipase (05/26/2024 12:40 AM EST) [facility] Lipase 48 13 - 75 unit/L LAB CHEMISTRY METHOD 05/26/2024 1:17 AM EST [facility] Blood Venous blood specimen / Unknown Venipuncture / Unknown 05/26/2024 12:40 AM EST 05/26/2024 12:53 AM EST Claudio Roberts MD LAB BLOOD ORDERABLES Final Res ult Performing Organization Address [facility] de Phone Number [facility] [address] [place] [address], [place] [phone] * (ABNORMAL) Comprehensive metabolic panel (05/26/2024 12:40 AM EST) [facility] Sodium 138 133 - 145 mmol/L LAB CHEMISTRY METHOD 05/26/2024 1:41 AM EST [facility] Potassium 4.2 3.5 - 5.5 mmol/L LAB CHEMISTRY METHOD 05/26/2024 1:41 AM EST [facility] Chloride 106 96 - 110 mmol/L LAB CHEMISTRY METHOD 05/26/2024 1:41 AM EST [facility] CO2 29 21 - 32 mmol/L LAB CHEMISTRY METHOD 05/26/2024 1:41 AM EST [facility] Anion Gap 3 3 - 11 LAB CHEMISTRY METHOD 05/26/2024 1:41 AM [facility] Glucose 107(H) 70 - 100 mg/dL LAB CHEMISTRY METHOD 05/26/2024 1:41 AM [facility] BUN 16 5 - 25 mg/dL LAB CHEMISTRY METHOD 05/26/2024 1:41 AM [facility] Creatinine 0.79 0.50 - 1.10 mg/dL LAB CHEMISTRY METHOD 05/26/2024 1:41 AM [facility] eGFR 98 >=60 mL/min/1. 73m2 LAB CHEMISTRY METHOD 05/26/2024 1:41 AM [facility] Comment:Calculation based on the??Chronic Kidney Disease Epidemiology Collaboration (CKD-EPI) equation refit??without adjustment for race. BUN/Creatinine Ratio 20.3 LAB CHEMISTRY METHOD 05/26/2024 1:41 AM [facility] Calcium 9.3 8.5 - 10.5 mg/dL LAB CHEMISTRY METHOD 05/26/2024 1:41 AM [facility] AST (SGOT) 15 10 - 42 unit/L LAB CHEMISTRY METHOD 05/26/2024 1:41 AM [facility] ALT (SGPT) 33 10 - 60 unit/L LAB CHEMISTRY METHOD 05/26/2024 1:41 AM [facility] Alkaline Phosphatase 76 42 - 121 unit/L LAB CHEMISTRY METHOD 05/26/2024 1:41 AM [facility] Total Protein 7.1 6.0 - 8.0 g/dL LAB CHEMISTRY METHOD 05/26/2024 1:41 AM [facility] Albumin 3.6 3.2 - 5.0 g/dL LAB CHEMISTRY METHOD 05/26/2024 1:41 AM [facility] Total Bilirubin <0.1 0.0 - 1.4 mg/dL LAB CHEMISTRY METHOD 05/26/2024 1:41 AM [facility] Blood Venous blood specimen / Unknown Venipuncture / Unknown 05/26/2024 12:40 AM EST 05/26/2024 12:53 AM EST us Claudio Roberts MD LAB BLOOD ORDERABLES Final Res ult [facility] [address] [place] [address], * XR Abdomen 2 Views (04/18/2024 8:52 [...] Signed Date: 04/19/2024 10:54 ET Workstation ID: [id number] Transcribed By: Self Edit Transcribed Date: 04/19/2024 [...] Signed Date: 04/19/2024 10:54 ET Workstation ID: [id number] Transcribed By: Self Edit Transcribed Date: 04/19/2024 10:49 ET Juanita RETANA IMG XR PROCEDURES Final Result * Basic metabolic panel (04/18/2024 5:49 AM EST) Sodium 141 133 - 145 mmol/L LAB CHEMISTRY METHOD 04/18/2024 8:06 AM [facility] Potassium 3.8 3.5 - 5.5 mmol/L LAB CHEMISTRY METHOD 04/18/2024 8:06 AM [facility] Chloride 107 96 - 110 mmol/L LAB CHEMISTRY METHOD 04/18/2024 8:06 AM [facility] CO2 28 21 - 32 mmol/L LAB CHEMISTRY METHOD 04/18/2024 8:06 AM [facility] Anion Gap 6 3 - 11 LAB CHEMISTRY METHOD 04/18/2024 8:06 AM [facility] Glucose 80 70 - 100 mg/dL LAB CHEMISTRY METHOD 04/18/2024 8:06 AM [facility] BUN 13 5 - 25 mg/dL LAB CHEMISTRY METHOD 04/18/2024 8:06 AM EST [facility] Creatinine 0.72 0.50 - 1.10 mg/dL LAB CHEMISTRY METHOD 04/18/2024 8:06 AM EST [facility] eGFR 110 >=60 mL/min/1. 73m2 LAB CHEMISTRY METHOD 04/18/2024 8:06 AM EST [facility] Comment:Calculation based on the??Chronic Kidney Disease Epidemiology Collaboration (CKD-EPI) equation refit??without adjustment for race. BUN/Creatinine Ratio 18.1 LAB CHEMISTRY METHOD 04/18/2024 8:06 AM [facility] Calcium 8.8 8.5 - 10.5 mg/dL LAB CHEMISTRY METHOD 04/18/2024 8:06 AM [facility] Blood Venous blood specimen / Unknown Venipuncture / Unknown 04/18/2024 5:49 AM EST 04/18/2024 7:25 AM EST us Master Tracy MD LAB BLOOD ORDERABLES Final Re sult [facility] [address] [place] [address], [place] [phone] from Last 3 Months Insurance [facility] [address] [employer] Advance Directives Documents on File Type Date Recorded Patient Etcher Enameling Expl anation Health Care Decision (hx) 09/11/2017 [...] currently active code status orders. Care Teams Financial Compliance Examiner Relationship Specialty Start Date End Date Maye Mitchell MD [address] [place] [address] , [address] [place] [address] Physician Associ D/B/A: [facility] STEPHIE Machuca PCP - General Internal Medicine 06/25/24
== END 2024-07-16 11:04 | disposition home or self-care (01) ==
PROVIDERS: PCP Nurse Practitioner Family; Visit Provider Nurse Practitioner Family
DX: E53.8 Deficiency of other specified B group vitamins (principal)

== ENCOUNTER → 2024-07-16 10:38 | Outpatient (BNVA) | payer OTHER, SELFPAY | PROVIDERS: PCP Nurse Practitioner Family; Visit Provider Nurse Practitioner Family | DX: E53.8 Deficiency of other specified B group vitamins (principal) | CPT/HCPCS: 96372; J3420 ==

== ENCOUNTER 2024-08-08 13:58 | Outpatient (AMB) | payer OTHER, SELFPAY ==
--- NOTE | 2024-08-08 14:08 | AM.OFFVISNUR ---
Intake Visit Reasons: B12 shot Allergies No Known Allergies Allergy (Verified 07/16/24 11:01) Nursing Note Pt ambulated (I) gait steady to the room. Vitamin B12 injection to left deltoid. Pt tolerated well. Office Meds cyanocobalamin (vitamin B-12) 1,000 mcg/mL injection solution Performing Provider: ANNABELLA Luna Performing Location: [facility] Adult [facility] Administered by: Melissa Botello on 08/08/24 14:09 Dose Route Admin Location Dispensed Lot Number Expiration Date [facility] Telecommunications Manager 1,000 mcg IM 1 mL [id number] 09/30/24 63128-238-28 [employer] Assessment & Plan Assessment & Plan Orders: Orders AMB Vitamin B12 Injection Patient Supplied Today E53.8 - Deficiency of other specified B group vitamins Medications: New cyanocobalamin (vitamin B-12) 1,000 mcg IM ONCE 1 mL 0RF E53.8 - Deficiency of other specified B group vitamins Coding
== END 2024-08-08 15:28 | disposition home or self-care (01) ==
LOC: HO.HMCC 13:58
PROVIDERS: PCP Nurse Practitioner Family; Visit Provider Nurse Practitioner Family
DX: E53.8 Deficiency of other specified B group vitamins (principal)

== ENCOUNTER → 2024-08-08 13:58 | Outpatient (BNVA) | payer OTHER, SELFPAY | PROVIDERS: PCP Nurse Practitioner Family; Visit Provider Nurse Practitioner Family | DX: E53.8 Deficiency of other specified B group vitamins (principal) | CPT/HCPCS: 96372; J3420 ==

== ENCOUNTER 2024-08-15 10:49 | Outpatient (AMB) | payer OTHER, SELFPAY ==
--- NOTE | 2024-08-15 11:39 | AM.OFFVISNUR ---
Intake Visit Reasons: b12 Intake Note: Pt arrived for week #2 of 4 B-12 injections Allergies No Known Allergies Allergy (Verified 08/15/24 11:40) Medication List - Last Reconciled 08/15/24 by Sheila Velez RN cyanocobalamin (vitamin B-12) 1,000 mcg IM .weekly omeprazole 20 mg PO DAILY 90 days valacyclovir (Valtrex) 500 mg PO BID 3 days Office Meds cyanocobalamin (vitamin B-12) 1,000 mcg/mL injection solution Performing Provider: GAYATHRI Luna Performing Location: [facility] Adult Primary [facility] Administered by: Sheila Velez RN on 08/15/24 11:40 Dose Route Admin Location Dispensed Lot Number Expiration Date [facility] [employer] 1,000 mcg IM left deltoid 1 mL [id number] 09/11/25 84572-367-15 [employer] Comments: Pt supplied Assessment & Plan Assessment & Plan Orders: Orders AMB Vitamin B12 Injection Patient Supplied Today E53.8 - Deficiency of other specified B group vitamins Medications: New cyanocobalamin (vitamin B-12) 1,000 mcg IM ONCE 1 mL 0RF E53.8 - Deficiency of other specified B group vitamins Coding
--- OUTSIDE RECORDS SUMMARY | 2024-08-15 12:32 | XMS_ITS | Clinical Summary ---
Author Organization [facility] Address [address] [place] [address] Phone Care Team Providers Care Mannequin Sander And Finisher Name Role Phone Maye Mitchell MD Primary Care Provider [phone] Allergies No known active allergies Medications cyanocobalamin [...] 90 each 3 06/12/19 25 026 Active Active Problems Problem Noted Date Diagnosed Date Crohn's disease with complication 06/20/2024 Suspected inflammatory bowel disease 04/19/2024 Heart murmur Resolved Problems Problem Noted Date Diagnosed Date Resolved Date Partial bowel obstruction 04/12/2024 Encounters Date Type Department Care Team Description 08/06/2024 9:27 AM EDT - 08/06/2024 11:59 PM EDT Hospital Encounter [facility] [address] [phone] Jeff Diallo DO Crohn's disease with complication, unspecified gastrointestinal tract location (CMS/HCC) (Primary Dx) Discharge Disposition: Home or Self Care 07/23/2024 9:30 AM EDT - 07/23/2024 11:59 PM EDT Hospital Encounter [facility] [address] [place] [phone] Jeff Diallo DO Crohn's disease with complication, unspecified gastrointestinal tract location (CMS/HCC) (Primary Dx) Discharge Disposition: Home or Self Care 06/25/2024 Telephone Gastroenterology [facility] [address] [place] [phone] Stacia Pavon NP provider call back 06/12/2024 9:20 AM EST Office Visit [facility] [address] [place] [phone] Stacia Pavon NP Crohn's disease of colon without complication (CMS/HCC) (Primary Dx); Gastroesophageal reflux disease without esophagitis 06/[facility] [address] [place] [phone] Stacia Pavon NP 05/26/2024 9:56 AM EST - 05/26/2024 1:10 PM EST Emergency [facility] [address] [place] [phone] Claudio Roberts MD Generalized abdominal pain (Primary Dx) Discharge Disposition: Home or Self Care from Last 3 Months Surgical History Surgery Date Site/Laterality Comments SECTION TUBAL LIGATION SECTION, LOW TRANSVERSE Medical History Medical History Date Comments Bowel obstruction (CMS/HCC) Heart murmur Colitis Social History Tobacco Use Types Packs/Day Years Used Date Smoking Tobacco: Every Day Cigarettes 0.5 6.3 Started: 05/14/2018 Smokeless Tobacco: Never Tobacco Cessation:Ready to Q uit: No Comments:Offered nicotine patch pt declined Alcohol Use Standard Drinks/Week Comments Not Currently 0 (1 standard drink = 0.6 oz pur e alcohol) Interpersonal Safety Answer Date Record ed Physical Abuse 04/15/2024 Verbal Abuse 04/15/2024 Comments No Sex and Gender Information Value Date Recorded Sex Assigned at Female 07/23/2024 9:49 AM EDT Legal Sex Female 11:14 AM EST Gender Identity Female 07/23/2024 9:49 AM EDT Sexual Orientation Choose not to disclose 2024 9:49 AM EDT 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 Not on file Not on file Not on file Obstetrics History Last Filed Vital Signs Vital Sign Reading Time Taken Comments Blood Pressure 131/53 08/06/2024 9:34 AM EDT Pulse 71 08/06/2024 9:34 AM EDT Temperature 36.3 ??C (97.4 ??F) 08/06/2024 9:34 AM ED T Respiratory Rate 18 08/06/2024 9:34 AM EDT Oxygen Saturation 100% 08/06/2024 9:34 AM EDT Inhaled Oxygen Concentration - - Weight 70 kg (154 lb 6.4 oz) 08/06/2024 9:34 AM EDT Height 165.1 cm (5' 5 ) 06/12/2024 9:21 AM EST Body Mass Index 25.69 06/12/2024 9:21 AM EST Plan of Treatment Upcoming Encounters Date Type Department Care Team (Late st Contact Info) Description 09/03/2024 9:30 AM EDT Appointment [facility] [address] [facility] 2[address] [place] [phone] 09/11/2024 8:40 AM EDT Office Visit Gastroenterology - [place] [address] [facility] [address] [facility] [address] [place] [phone] Stacia Pavon NP [address] [facility] [address] [place] [address] Health Maintenance Due Date Last Done Comments [...] AND DIFFERENTIAL STAT 05/26/2024 12:40 AM EST from Last 3 Months Results * Interferon gamma interpretation (06/12/2024 10:00 AM EST) Quantiferon Plus Interpretation Negative Negative LAB CHEMISTRY METHOD 06/14/2024 2:02 PM EST [facility] Blood Venous blood specimen / Unknown Venipuncture / Unknown 06/12/2024 10:00 AM EST 06/12/2024 12:42 PM EST us Stacia Pavon NP LAB BLOOD ORDERABLES Final Resu lt [facility] [address] [place] [address], * Interferon gamma antigen 2 (06/12/2024 10:00 AM EST) Blood Venous blood specimen / Unknown Venipuncture / Unknown 06/12/2024 10:00 AM EST 06/12/2024 12:42 PM EST Stacia Pavon [employer] LAB BLOOD ORDERABLES Final Resu lt Performing Organization Address City/[facility]/ZIP Co de Phone Number [facility] [address] [place] [address], [place] [phone] * Inteferon gamma antigen 1 (06/12/2024 10:00 AM EST) Blood Venous blood specimen / Unknown Venipuncture / Unknown 06/12/2024 10:00 AM EST 06/12/2024 12:42 PM EST us Stacia Pavon [employer] LAB BLOOD ORDERABLES Final Resu lt Performing Organization Address [facility]/ZIP Co de Phone Number [facility] [address] [place] [address], [place] [phone] * Interferon gamma mitogen (06/12/2024 10:00 AM EST) Blood Venous blood specimen / Unknown Venipuncture / Unknown 06/12/2024 10:00 AM EST 06/12/2024 12:42 PM EST us Stacia Pavon [employer] LAB BLOOD ORDERABLES Final Resu lt Performing Organization Address [facility] Co de Phone Number [facility] [address] [place] [address], [place] [phone] * Interferon gamma NIL (06/12/2024 10:00 AM EST) Blood Venous blood specimen / Unknown Venipuncture / Unknown 06/12/2024 10:00 AM EST 06/12/2024 12:42 PM EST us Stacia Pavon [employer] LAB BLOOD ORDERABLES Final Resu lt Performing Organization Address [facility]/ZIP Co de Phone Number [facility] [address] [place] [address], [place] [phone] * Hepatitis B virus molecular study quantitative (06/12/2024 10:00 AM EST) Hepatitis B Virus DNA Qualitative Not detected Not detected 06/16/2024 11:39 AM EST [facility] Hepatitis B Virus DNA, Quantitative <10 <10 IU/mL 06/16/2024 11:39 AM EST [facility] Log Hepatitis B Virus DNA <1.00 <1.00 Log (10) IU/mL 06/16/2024 11:39 AM EST [facility] Comment: This procedure utilizes a real-time polymerase chain reaction test from [employer]. ??The amplification target is a conserved region [...] not rule out infection. Test performed at [facility], [address] , [place], [place] ??[address] ? [phone] Lauren Avery MD, PhD - Fruit Sorter Blood Venous blood specimen / Unknown Venipuncture / Unknown 06/12/2024 10:00 AM EST 06/12/2024 12:42 PM EST Stacia Pavon NP LAB BLOOD ORDERABLES Final Resu lt [facility] [address] [place] [address] * Sedimentation rate (06/12/2024 10:00 AM EST) Sed Rate 14 0 - 20 mm/hr LAB HEMETOLOGY METHOD 06/12/2024 2:21 PM EST [facility] Blood Venous blood specimen / Unknown Venipuncture / Unknown 06/12/2024 10:00 AM EST 06/12/2024 12:42 PM EST Stacia Pavon [employer] LAB BLOOD ORDERABLES Final Resu lt [facility] [address] [place] [address], * C-reactive protein (06/12/2024 10:00 AM EST) [facility] C-Reactive Protein <0.29 <=0.50 mg/dL LAB CHEMISTRY METHOD 06/12/2024 2:56 PM EST [facility] Blood Venous blood specimen / Unknown Venipuncture / Unknown 06/12/2024 10:00 AM EST 06/12/2024 12:42 PM EST Stacia Pavon [employer] LAB BLOOD ORDERABLES Final Resu lt [facility] [address] [place] [address], * POC , urine manually resulted (05/26/2024 12:44 AM EST) [facility] HCG, Ur POC Negative Negative POC hCG Int QC Pass? Yes Yes EXPIRATION DATE POC 10/09/2025 LOT NUMBER POC [id number] Urine Urine specimen obtained by clean catch procedure / Unknown 05/26/2024 12:44 AM EST Claudio Roberts MD POINT OF CARE TEST ENTER/EDIT ORDERABLES Final Result * (ABNORMAL) CBC auto differential (05/26/2024 12:40 AM EST) [facility] WBC 7.6 4.8 - 10.8 K/mcL LAB HEMETOLOGY METHOD 05/26/2024 12:57 AM EST [facility] RBC 4.20 3.80 - 4.80 M/mcL LAB HEMETOLOGY METHOD 05/26/2024 12:57 AM EST [facility] Hemoglobin 11.9 11.5 - 16.0 g/dL LAB HEMETOLOGY METHOD 05/26/2024 12:57 AM [facility] Hematocrit 37.3 35.0 - 47.0 % LAB HEMETOLOGY METHOD 05/26/2024 12:57 AM [facility] MCV 88.8 79.0 - 98.0 FL LAB HEMETOLOGY METHOD 05/26/2024 12:57 AM [facility] MCH 28.3 27.0 - 32.0 pcg LAB HEMETOLOGY METHOD 05/26/2024 12:57 AM [facility] MCHC 31.9(L) 32.0 - 37.0 g/dL LAB HEMETOLOGY METHOD 05/26/2024 12:57 AM [facility] RDW 13.1 11.0 - 15.0 % LAB HEMETOLOGY METHOD 05/26/2024 12:57 AM [facility] Platelets 403(H) 130 - 400 K/mcL LAB HEMETOLOGY METHOD 05/26/2024 12:57 AM [facility] MPV 10.2 7.0 - 11.0 FL LAB HEMETOLOGY METHOD 05/26/2024 12:57 AM [facility] NRBC 0.0 <1.0 % LAB HEMETOLOGY METHOD 05/26/2024 12:57 AM [facility] NRBC Absolute 0.00 <0.10 K/mcL LAB HEMETOLOGY METHOD 05/26/2024 12:57 AM [facility] Neutrophils Relative 61.8 % LAB HEMETOLOGY METHOD 05/26/2024 12:57 AM [facility] Lymphocytes Relative 30.1 % LAB HEMETOLOGY METHOD 05/26/2024 12:57 AM [facility] Monocytes Relative 6.7 % LAB HEMETOLOGY METHOD 05/26/2024 12:57 AM [facility] Eosinophils Relative 0.8 % LAB HEMETOLOGY METHOD 05/26/2024 12:57 AM EST [facility] Basophils Relative 0.1 % LAB HEMETOLOGY METHOD 05/26/2024 12:57 AM [facility] Immature Granulocytes Relative 0.5 % LAB HEMETOLOGY METHOD 05/26/2024 12:57 AM [facility] Neutrophils Absolute 4.71 1.50 - 7.00 K/mcL LAB HEMETOLOGY METHOD 05/26/2024 12:57 AM [facility] Lymphocytes Absolute 2.29 1.00 - 5.00 K/mcL LAB HEMETOLOGY METHOD 05/26/2024 12:57 AM [facility] Monocytes Absolute 0.51 0.20 - 1.00 K/mcL LAB HEMETOLOGY METHOD 05/26/2024 12:57 AM [facility] Eosinophils Absolute 0.06 0.00 - 0.50 K/mcL LAB HEMETOLOGY METHOD 05/26/2024 12:57 AM EST [facility] Basophils Absolute 0.01 0.00 - 0.20 K/mcL LAB HEMETOLOGY METHOD 05/26/2024 12:57 AM [facility] Immature Granulocytes Absolute 0.04(H) 0.00 - 0.03 K/mcL LAB HEMETOLOGY METHOD 05/26/2024 12:57 AM [facility] Blood Venous blood specimen / Unknown Venipuncture / Unknown 05/26/2024 12:40 AM EST 05/26/2024 12:53 AM EST us Claudio Roberts MD LAB BLOOD ORDERABLES Final Res ult [facility]) [facility] [address] [place] [address], * Lipase (05/26/2024 12:40 AM EST) Lipase 48 13 - 75 unit/L LAB CHEMISTRY METHOD 05/26/2024 1:17 AM [facility] Blood Venous blood specimen / Unknown Venipuncture / Unknown 05/26/2024 12:40 AM EST 05/26/2024 12:53 AM EST us Claudio Roberts MD LAB BLOOD ORDERABLES Final Res ult [facility] [address] [place] [address], * (ABNORMAL) Comprehensive metabolic panel (05/26/2024 12:40 AM EST) Sodium 138 133 - 145 mmol/L LAB CHEMISTRY METHOD 05/26/2024 1:41 AM [facility] Potassium 4.2 3.5 - 5.5 mmol/L LAB CHEMISTRY METHOD 05/26/2024 1:41 AM [facility] Chloride 106 96 - 110 mmol/L LAB CHEMISTRY METHOD 05/26/2024 1:41 AM [facility] CO2 29 21 - 32 mmol/L LAB CHEMISTRY METHOD 05/26/2024 1:41 AM [facility] Anion Gap 3 3 - 11 LAB CHEMISTRY METHOD 05/26/2024 1:41 AM [facility] Glucose 107(H) 70 - 100 mg/dL LAB CHEMISTRY METHOD 05/26/2024 1:41 AM [facility] BUN 16 5 - 25 mg/dL LAB CHEMISTRY METHOD 05/26/2024 1:41 AM [facility] Creatinine 0.79 0.50 - 1.10 mg/dL LAB CHEMISTRY METHOD 05/26/2024 1:41 AM [facility] eGFR 98 >=60 mL/min/1. 73m2 LAB CHEMISTRY METHOD 05/26/2024 1:41 AM [facility] Comment:Calculation based on the??Chronic Kidney Disease Epidemiology Collaboration (CKD-EPI) equation refit??without adjustment for race. BUN/Creatinine Ratio 20.3 LAB CHEMISTRY METHOD 05/26/2024 1:41 AM [facility] Calcium 9.3 8.5 - 10.5 mg/dL LAB CHEMISTRY METHOD 05/26/2024 1:41 AM [facility] AST (SGOT) 15 10 - 42 unit/L LAB CHEMISTRY METHOD 05/26/2024 1:41 AM [facility] ALT (SGPT) 33 10 - 60 unit/L LAB CHEMISTRY METHOD 05/26/2024 1:41 AM [facility] Alkaline Phosphatase 76 42 - 121 unit/L LAB CHEMISTRY METHOD 05/26/2024 1:41 AM [facility] Total Protein 7.1 6.0 - 8.0 g/dL LAB CHEMISTRY METHOD 05/26/2024 1:41 AM [facility] Albumin 3.6 3.2 - 5.0 g/dL LAB CHEMISTRY METHOD 05/26/2024 1:41 AM [facility] Total Bilirubin <0.1 0.0 - 1.4 mg/dL LAB CHEMISTRY METHOD 05/26/2024 1:41 AM [facility] Blood Venous blood specimen / Unknown Venipuncture / Unknown 05/26/2024 12:40 AM EST 05/26/2024 12:53 AM EST us Claudio Roberts MD LAB BLOOD ORDERABLES Final Res ult [facility] [address] [place] [address], from Last 3 Months Insurance Advance Directives Documents on File Type Date Recorded 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 Care Teams Mannequin Sander [employer] Finisher Relationship Specialty Start Date End Date Maye Mitchell MD [address] , [address] [facility] D/B/A: [facility] Her[facility] In Internal Medicine STEPHIE Machuca PCP - General Internal Medicine 06/25/24
== END 2024-08-15 12:51 | disposition home or self-care (01) ==
LOC: HO.HMCC 10:50
PROVIDERS: PCP Nurse Practitioner Family; Visit Provider Nurse Practitioner Family
DX: E53.8 Deficiency of other specified B group vitamins (principal)

== ENCOUNTER → 2024-08-15 10:49 | Outpatient (BNVA) | payer OTHER, SELFPAY | PROVIDERS: PCP Nurse Practitioner Family; Visit Provider Nurse Practitioner Family | DX: E53.8 Deficiency of other specified B group vitamins (principal) | CPT/HCPCS: 96372; J3420 ==

== ENCOUNTER 2024-09-10 13:17 | Outpatient (REF) | payer OTHER, SELFPAY ==
--- OUTSIDE RECORDS SUMMARY | 2024-09-10 14:36 | XMS_ITS | Clinical Summary ---
Author Organization [facility] Address [address] [place] [address] Phone Care Team Providers Care Fusion Operator Name Role Phone Maye Mitchell MD Primary Care Provider [phone] Allergies No known active allergies Medications cyanocobalamin [...] Noted Date Diagnosed Date Crohn's disease with complic ation ([facility] V24, [facility] V28) 06/20/2024 Suspected inflammatory bowel disease 04/19/2024 Heart murmur Resolved Problems Problem Noted Date Diagnosed Date Resolved Date Partial bowel obstruction ([facility] [place]/HCC V24, CMS/HCC V28) 04/12/2024 04/19/2024 Encounters Date Type Department Care Team Description 08/06/2024 9:27 AM EDT - 08/06/2024 11:59 PM EDT Hospital Encounter [facility] [address] [place] [phone] Jeff Diallo DO Crohn's disease with complication, unspecified gastrointestinal tract location (CMS/HCC V24, [facility] V28) (Primary Dx) Discharge Disposition: Home or Self Care 07/23/2024 9:30 AM EDT - 07/23/2024 11:59 PM EDT Hospital Encounter [facility] [address] [place] [phone] Yoel Jeff Crohn's disease with complication, unspecified gastrointestinal tract location ([facility] V24, [facility] V28) (Primary Dx) Discharge Disposition: Home or Self Care 06/25/2024 Telephone Gastroenterology [facility] [address] [facility] [address] [facility] [address] [place] [phone] Stacia Pavon NP provider call back 06/12/2024 9:20 AM EST Office Visit Gastroenterology [facility] [address] [facility] [address] [facility] [address] [place] [phone] Stacia Pavon NP Crohn's disease of colon without complication ([facility] V24, [facility] V28) (Primary Dx); Gastroesophageal reflux disease without esophagitis 06/12/2024 Telephone Gastroenterology [facility] [address] [facility] [address] [place] [phone] Stacia Pavon NP from Last 3 Months Surgical History Surgery Date Site/Laterality Comments SECTION TUBAL LIGATION SECTION, LOW TRANSVERSE Medical History Medical History Date Comments Bowel obstruction ([facility] V24, [facility] V28) Heart murmur Colitis Social History Tobacco Use [...] 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 Not on file Not [...] Care Team (Late st Contact Info) Description 09/11/2024 8:40 AM EDT Office Visit Gastroenterology - [place] [facility] [address] [facility] [address] [place] [phone] Stacia Pvaon, MCKENNA 175 [facility] [address] [place] [address] 09/11/2024 9:00 AM EDT Appointment Infusion Center [address] [facility] [address] [place] [phone] Health Maintenance Due Date Last Done Comments [...] season) 2024 07/04/2021, 06/12/2020, 05/22/2020 Influenza Vaccine (Season Ended) 2025 02/14/2023, 03/29/2022, 03/24/2018, Additional history exists DTaP,Tdap,and Td [...] age to complete this topic Meningococcal B Vaccine Aged Out No l onger eligible based on patient's age to complete [...] EST Crohn's disease of colon without complication ([facility] V24, [facility] V28) INTERFERON GAMMA ANTIGEN 2 Routine 06/12/2024 10:00 AM EST Crohn's disease of colon without complication ([facility] V24, [facility] V28) INTERFERON GAMMA ANTIGEN 1 Routine 06/12/2024 10:00 AM EST Crohn's disease of colon without complication (CMS/HCC V24, CMS/HCC V28) INTERFERON GAMMA MITOGEN Routine 06/12/2024 10:00 AM EST Crohn's disease of colon without complication (CMS/HCC V24, [facility] V28) INTERFERON GAMMA NIL Routine 06/12/2024 10:00 AM EST Crohn's disease of colon without complication ([facility] V24, [facility] V28) INTERFERON GAMMA FOR TB, QUALITATIVE Routine 06/12/2024 10:00 AM EST Crohn's disease of colon without complication (CMS/HCC V24, CMS/HCC V28) HEPATITIS B VIRUS PCR QUANTITATIVE Routine 06/12/2024 10:00 AM EST Crohn's disease of colon without complication (CMS/HCC V24, CMS/HCC V28) SEDIMENTATION RATE Routine 06/12/2024 10 :00 AM EST Crohn's disease of colon without complication (CMS/HCC V24, CMS/HCC V28) C-REACTIVE PROTEIN Routine 06/12/2024 10 :00 AM EST Crohn's disease of colon without complication (CMS/HCC V24, CMS/HCC V28) from Last 3 Months Results * Interferon gamma interpretation (06/12/2024 10:00 AM EST) Quantiferon Plus Interpretation Negative Negative LAB CHEMISTRY METHOD 06/14/2024 2:02 PM EST [facility] Blood Venous blood specimen / Unknown Venipuncture / Unknown 06/12/2024 10:00 AM EST 06/12/2024 12:42 PM EST Stacia Pavon FURNACE MAINTENANCE LAB BLOOD ORDERABLES Final Resu lt [facility] [address] [place] [address], [place] [phone] * Interferon gamma antigen 2 (06/12/2024 10:00 AM EST) Blood Venous blood specimen / Unknown Venipuncture / Unknown 06/12/2024 10:00 AM EST 06/12/2024 12:42 PM EST us Stacia Pavon NP LAB BLOOD ORDERABLES Final Resu lt [facility] [address] [place] [address], * Inteferon gamma antigen 1 (06/12/2024 10:00 AM EST) Blood Venous blood specimen / Unknown Venipuncture / Unknown 06/12/2024 10:00 AM EST 06/12/2024 12:42 PM EST us Stacia Pavno FURNACE MAINTENANCE LAB BLOOD ORDERABLES Final Resu lt Performing Organization Address City/[facility]/ZIP Co de Phone Number [facility] [address] [place] [address], [place] [phone] * Interferon gamma mitogen (06/12/2024 10:00 AM EST) Blood Venous blood specimen / Unknown Venipuncture / Unknown 06/12/2024 10:00 AM EST 06/12/2024 12:42 PM EST us Stacia Pavon FURNACE MAINTENANCE LAB BLOOD ORDERABLES Final Resu lt Performing Organization Address City/[facility] Co de Phone Number [facility] [address] [place] [address], [place] [phone] * Interferon gamma NIL (06/12/2024 10:00 AM EST) Blood Venous blood specimen / Unknown Venipuncture / Unknown 06/12/2024 10:00 AM EST 06/12/2024 12:42 PM EST us Stacia Pavon FURNACE MAINTENANCE LAB BLOOD ORDERABLES Final Resu lt Performing Organization Address [facility] de Phone Number [facility] [address] [place] [address], [place] [phone] * Hepatitis B virus molecular study quantitative (06/12/2024 10:00 AM EST) Hepatitis B Virus DNA Qualitative Not detected Not detected 06/16/2024 11:39 AM EST [facility] Hepatitis B Virus DNA, Quantitative <10 <10 IU/mL 06/16/2024 11:39 AM EST [facility] Log Hepatitis B Virus DNA <1.00 <1.00 Log (10) IU/mL 06/16/2024 11:39 AM EST [facility] Comment: This procedure utilizes a real-time polymerase chain reaction test from [employer]. ??The amplification target is a conserved region [...] not rule out infection. Test performed at [facility], [address] , [place], [place] ??[address] ? [phone] Lauren Avery MD, PhD - Medical Records Assistant Blood Venous blood specimen / Unknown Venipuncture / Unknown 06/12/2024 10:00 AM EST 06/12/2024 12:42 PM EST us Stacia Pavon NP LAB BLOOD ORDERABLES Final Resu lt [facility] [address] [place] [address] * Sedimentation rate (06/12/2024 10:00 AM EST) [facility] Sed Rate 14 0 - 20 mm/hr LAB HEMETOLOGY METHOD 06/12/2024 2:21 PM EST [facility] Blood Venous blood specimen / Unknown Venipuncture / Unknown 06/12/2024 10:00 AM EST 06/12/2024 12:42 PM EST us Stacia Pavon FURNACE MAINTENANCE LAB BLOOD ORDERABLES Final Resu lt [facility] [address] [place] [address], * C-reactive protein (06/12/2024 10:00 AM EST) C-Reactive Protein <0.29 <=0.50 mg/dL LAB CHEMISTRY METHOD 06/12/2024 2:[address] [facility] Blood Venous blood specimen / Unknown Venipuncture / Unknown 06/12/2024 10:00 AM EST 06/12/2024 12:42 PM EST us Stacia Pavon FURNACE MAINTENANCE LAB BLOOD ORDERABLES Final Resu lt [facility] ([facility]) [facility] [address] [place] [address], [place] [phone] from Last 3 Months Insurance Advance Directives Documents on File Type Date Recorded Patient Contact Lens Technician Expl anation Health Care Decision (hx) 09/11/2017 [...] DIRECTIVE Health Care Decision (hx) 09/11/2017 AD AYESHA DIRECTIVE * Full Code - Confirmed (Latest Code Status on File) Date Activated Date Inactivated Comments 04/12/2024 8:33 PM 04/19/2024 6:59 PM This code s tatus was ascertained in the following way: Code status discussion: discussion with patient To update the patient's code status, place a code status order. Do not modify or discontinue any currently active code status orders. Care Teams Fusion Operator Relationship Specialty Start Date End Date Maye Mitchell MD [address] [place] [address] , [address] [facility] D/B/A: [facility] Makaweli ND PCP - General Internal Medicine 06/25/24
[2024-09-10 16:54] LABS: Folate 10.1 ng/mL (> or = 4.0); Vitamin B12 352 pg/mL (200-900)
[2024-09-13 13:12] LABS: Parietal Cell Antibody 102.2 Unit (<=20.0)
[2024-09-13 20:39] LABS: Intrinsic Factor Antibodies Negative (Negative)
== END 2024-09-10 13:18 | disposition home or self-care (01) ==
LOC: HO.HMGCLDS 13:17
PROVIDERS: PCP Nurse Practitioner Family; Visit Provider Nurse Practitioner Family
DX: K50.10 Crohn's disease of large intestine without complications (principal); F41.1 Generalized anxiety disorder; F43.0 Acute stress reaction; E53.8 Deficiency of other specified B group vitamins
CPT/HCPCS: 36415; 82607; 82746; 83516; 86340; 96127; 99212

== ENCOUNTER 2024-09-10 13:30 | Outpatient (AMB) | payer OTHER, SELFPAY ==
--- NOTE | 2024-09-10 14:14 | A.OFFPC_ITS ---
Vital Signs 09/10/24 14:18 Height 5 ft 4 in Weight 152 lb 6 oz BMI 26.2 BP 130/92 H Blood Pressure Location Lt brachial Position Sitting Respiration 18 Pulse 76 Pulse Source Pulse Oximeter Temp 98.2 F Temp Source Oral Pulse Oximetry (%) 98 Oxygen Delivery Method Room Air Intake Visit Reasons: 3 months f/up Intake Note: Pt is here today for 3 month follow up. Allergies No Known Allergies Allergy (Verified 09/10/24 14:14) Medication List - Last Reconciled 09/10/24 by JV Luna- cyanocobalamin (vitamin B-12) 1,000 mcg IM .weekly nicotine (Nicoderm CQ) 1 patch transdermal DAILY omeprazole 20 mg PO DAILY 90 days valacyclovir (Valtrex) 500 mg PO BID 3 days Tobacco use date assessed: 09/10/24 Dental Screening Dental Screen Date: 09/10/24 Did you have a dental visit in the last 12 months?: Yes Did you have a dental problem in the last 6 months where you did not have access to dental care?: No Was dental information given to patient?: Patient has dentist HPI 3 months f/up HPI Details Chief Complaint The patient presents with stress and concerns related to Crohn's disease. History of Present Illness The patient is a 39-year-old female presenting with follow-up concerns regarding Crohn's Disease and associated stress. She recently received a diagnosis of Crohn's Disease, which has affected her employability due to symptom severity. She is currently undergoing evaluation with her pattern changer to establish an effective treatment regimen. She reports significant stress related to family dynamics, specifically concerning her son who is displaying at-risk behaviors. Relationship stress also contributes to her overall emotional strain. The patient reports feeling safe, with no thoughts of self-harm or harm to others, and has opted against engaging with mental health services. Historically, a systolic murmur was noted, but her pulmonary assessment was unremarkable. Future laboratory evaluations are planned for ongoing monitoring. Pt does report feeling safe overall. Social History - Employment: Not currently working due to Crohn's Disease symptoms. - Family Status: Mother of a 16-year-old son experiencing behavioral issues. - Relationships: Reports stress in her c urrent relationship with her boyfriend. - Emotional Well-being: Reports high lev els of stress but feels physically safe and denies suicidal or homicidal ideation. - Mental Health: Declines therapy or [facility] counseling at this time. Health Maintenance Review of Systems - Cardiac: Reports previous diagnosis of a systolic murmur. - Respiratory: Denies any respiratory sy mptoms; lungs were clear on examination. - Psychological: Reports stress; denies suicidal or homicidal ideation. Physical Exam General: Cooperative, healthy appearing, comfortable, no acute distress and well developed Orientation: Patient oriented x3 Limitations: No limitations Head: Normal to inspection Ears: Hearing grossly normal bilaterally Nose: Normal external nose present Face and sinus: Normal facial exam Eyes: Appearance normal, both eyes and all related structures Neck: Normal visual inspection and Yes full ROM Respiratory: Normal respiratory effort and able to speak in complete sentences. Clear to auscultation bilaterally Cardiovascular: Regular rate and rhythm. Normal S1 and S2, systolic murmur GI: Normal to inspection. Soft to palpation and nontender Skin: No rashes or lesions noted Neuro: Patient oriented x3 Extremities: Normal to inspection Results Plan The patient will continue her follow-up with her pattern changer to effectively manage her Crohn's Disease. Emotional support and monitoring for stressors related to family and relationships will be prioritized, ensuring she remains emotionally supported despite declining therapy. A focus will remain on her physical safety, with future lab evaluations planned to assist in monitoring her condition. Discussion Notes During our discussions, we focused primarily on the patient's concerns regarding Crohn's Disease and the significant stress she is experiencing. We reviewed her diagnosis of Crohn's Disease and plans for her upcoming gastroenterology appointment to further tailor her management plan. She expressed concerns related to her familial and relationship stress but confirmed feeling safe and declined therapy services. We consented to the plan of action involving continued follow-up and emotional support, reiterating her options for future therapy should she choose to reconsider. Care will be taken to ensure that she remains informed of her treatment options and any plans for further testing as needed. Patient Instructions - Follow up with your pattern changer for Crohn's Disease management. - Monitor stress levels and seek help if feelings of harm arise. - Maintain open communication about emot ional well-being. - Get labs done as advised at your next appointment. - Consider possible support groups or co unseling if future stress becomes overwhelming. [facility] Medical History Complex cyst of right ovary Crohn's colitis Pancolitis Colitis SBO (small bowel obstruction) Bipolar 1 disorder Numbness and tingling in both hands Hx of Western blot negative for herpes simplex virus Hx of abnormal cells from cervix Surgical History H/O liposuction of abdomen Hx of tubal ligation Hx of section Family History Father Rectal cancer Colon cancer Mother History of fibromyalgia Diabetes mellitus Maternal Grandmother Diabetes mellitus Abdominal aortic aneurysm Rheumatoid arthritis Paternal Aunt Cervical cancer Social History Household Members: Children Housing: Apartment Alcohol intake: current Alcohol intake frequency: a few times a month Patient Tobacco Use Status: Former Tobacco user Cigarettes Per Day: 10 Years Smoked: 20 e-Cigarette/Vaping Use: Never Used service: No 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al status: employed 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 1. Little interest or pleasure in doing things: nearly every day 2. Feeling down, depressed, or hopeless: nearly every day 3. Trouble falling or staying asleep, or sleeping too much: nearly every day 4. Feeling tired or having little energy: nearly every day 5. Poor appetite or overeating: nearly every day 6. Feeling bad about yourself - or that you are a failure or have let yourself or your family down: several days 7. Trouble concentrating on things, such as reading the newspaper or watching television: nearly every day 8. Moving or speaking so slowly that other people could have noticed. Or the opposite - being so fidgety or restless that you have been moving around a lot more than usual: not at all 9. Thoughts that you would be better off or of hurting yourself in some way: not at all Total score: 19 Depression Screening Interpretation: Positive Depression Screening Follow-up: Existing condition and Declines treatment Depression Screening Done: Yes 53709 - PHQ-9 Billing: Yes Source: Developed by Drs. Rhys Mace, Abigail Lloyd, Mejia Ernst and colleagues, with an educational samia from [employer]. Thrive Questionnaire Date Thrive assessed: 09/10/24 I am a: Patient What is your living situation today?: I have a steady place to live Within the past 12 months, did the food you bought not last and you didn't have the money to get more?: Sometimes True Within the past 12 months, did you worry whether your food would run out before you got money to buy more?: Sometimes True Do you have trouble paying for medicines?: No Do you have trouble getting transportation to medical appointments?: Yes Do you have trouble paying your heating and electricity bill?: Yes Do you have trouble taking care of your child, family member or friend?: No Do you have trouble with day-to-day activities such as bathing, preparing meals, shopping, managing finances, etc.?: No Are you currently unemployed and looking for a job?: Yes Are you interested in more education?: No Please select the resources that you would like help with: None Currently or been in a relationship where the following occur: No concerns reported THRIVE Score: 4 AUDIT C Alcohol Use Questionnaire (AUDIT-C) 1. How often do you have a drink containing alcohol?: Monthly or less 2. How many drinks containing alcohol do you have on a typical day when you are drinking?: 1 or 2 3. How often do you have six or more drinks on one occasion?: Less than monthly Total Score: 2 Score Reviewed/Action Taken: Yes NAT-7 AMB Questionnaire NAT-7 Date NAT - 7 assessed: 09/10/24 Feeling nervous, anxious, or on edge: 3 = Nearly every day Not being able to stop or control worryin = Nearly every day Worrying too much about different things: 3 = Nearly every day Trouble relaxin = Nearly every day Being so restless that it is hard to sit still: 3 = Nearly every day Becoming easily annoyed or irritable: 3 = Nearly every day Feeling afraid as if something awful might happen: 3 = Nearly every day Total NAT-7 score (0-4 normal; 5-9 mild; 10-14 moderate; 15-21 severe): 21 Source: Developed by Drs. Rhys Mace, Abigail Lloyd, Mejia Ernst and colleagues, with an educational samia from [employer]. NAT-7 Assessment Billing NAT-7 Assessment Tool: NAT-7 Assessment 54341 (denies any si or hi, refuses therapy/medication currently) Physical exam (Primary Care) Vital Signs: Last Vital Signs Temp 98.2 F 09/10/24 14:18 Pulse 76 09/10/24 14:18 Resp 18 09/10/24 14:18 BP 130/92 H 09/10/24 14:18 Pulse Ox 98 09/10/24 14:18 Oxygen Delivery Method Room Air 09/10/24 14:18 BMI result Body Mass Index 26.2 Tobacco/Smoking Status: Tobacco use Status Tobacco use date assessed 09/10/24 09/10/24 14:15 Patient Tobacco Use Status Former Tobacco user 09/10/24 14:15 e-Cigarette/Vaping Use Never Used 09/10/24 14:15 PHQ-9: PHQ-9 Score PHQ-9: Total score 19 09/10/24 14:15 Depression Screening Interpretation: Positive Depression Screening Follow-up: Existing condition and Declines treatment Thrive Assessment: Date of Thrive Assessment Date Thrive assessed 09/10/24 09/10/24 14:15 Currently or been in a relationship where the following occur: No concerns reported Coding Level of Care Code Est Pt Level 3 (60572) Diagnoses Crohn's colitis K50.10 Anxiety in acute stress reaction F41.1; F43.0 Additional Codes PHQ-9 - 79827 - PHQ-9 Billing: Yes ([id number]) NAT-7 Assessment Billing - NAT-7 Assessment Tool: NAT-7 Assessment 11699 ([id number]) Assessment & Plan Assessment & Plan (1) Crohn's colitis: Code(s): K50.10 - Crohn's disease of large intestine without complications Category: Medical (2) Anxiety in acute stress reaction: Code(s): F41.1 - Generalized anxiety disorder; F43.0 - Acute stress reaction Category: Medical Plan . Medications: New nicotine (Nicoderm CQ) 1 patch transdermal DAILY 28 ea 0RF
[2024-09-10 14:18] VITALS: BP 130/92; PULSE 76; RESP 18; TEMP 36.8; O2SAT 98; BMI 26.2
== END 2024-09-10 15:02 | disposition home or self-care (01) ==
LOC: HO.HMCC 13:31
PROVIDERS: PCP Nurse Practitioner Family; Visit Provider Nurse Practitioner Family
DX: K50.10 Crohn's disease of large intestine without complications (principal); F41.1 Generalized anxiety disorder; F43.0 Acute stress reaction

== ENCOUNTER 2025-02-09 13:17 | Outpatient (AMB) | payer OTHER, SELFPAY ==
[2025-02-09 13:28] VITALS: BP 128/88; PULSE 83; TEMP 37.2; O2SAT 99; BMI 26.4
--- NOTE | 2025-02-09 13:28 | MHC.PC.OV ---
Vital Signs 02/09/25 13:28 Height 5 ft 4 in Weight 154 lb BMI 26.4 BP 128/88 Blood Pressure Location Lt brachial Position Sitting Pulse 83 Pulse Source Pulse Oximeter Temp 99.0 F Temp Source Oral Pulse Oximetry (%) 99 Oxygen Delivery Method Room Air Intake Visit Reasons: 4m follow up Allergies No Known Allergies Allergy (Verified 09/10/24 14:14) Medication List - Last Reconciled 02/09/25 by ARBEN LunaP- cyanocobalamin (vitamin B-12) 1,000 mcg IM .weekly hydroxyzine HCl 10 mg PO DAILY 30 days nicotine (Nicoderm CQ) 1 patch transdermal DAILY omeprazole 20 mg PO DAILY 90 days valacyclovir (Valtrex) 500 mg PO BID 3 days Tobacco use date assessed: 09/10/24 Dental Screening Dental Screen Date: 09/10/24 HPI 4m follow up HPI Details Chief Complaint The patient presents for a generalized follow-up visit. History of Present Illness The patient is a 39-year-old female presenting with a generalized follow-up visit. She has a history of pancolitis, Crohn's disease, and possibly ulcerative colitis, and is currently under the care of a price accuracy supervisor with her next appointment scheduled for March. She is expected to start treatment soon, although the specific medication has not been disclosed. The patient reports experiencing anxiety but denies any suicidal or homicidal ideation and denies depression. Hydroxyzine has been prescribed on an as-needed basis to manage her anxiety symptoms. She has a history of vitamin B12 deficiency, and her laboratory results, including B12 levels, will be reviewed to assess her current status. The patient experiences frequent abdominal discomfort accompanied by diarrhea. No recent fevers, chills, blood in stool Social History Health Maintenance Review of Systems - Psychiatric: Reports anxiety. Denies suicidal ideation, homicidal ideation, and depression. - Gastrointestinal: Reports frequent abdominal discomfort with diarrhea. Physical Exam General: Cooperative, healthy appearing, comfortable, no acute distress and well developed Orientation: Patient oriented x3 Limitations: No limitations Head: Normal to inspection Ears: Hearing grossly normal bilaterally Nose: Normal external nose present Face and sinus: Normal facial exam Eyes: Appearance normal, both eyes and all related structures Neck: Normal visual inspection and Yes full ROM Respiratory: Normal respiratory effort and able to speak in complete sentences. Clear to auscultation bilaterally Cardiovascular: Regular rate and rhythm. Normal S1 and S2, systolic murmur GI: Normal to inspection. Soft to palpation and nontender, but patient reports a lot of abdominal discomfort with diarrhea on a regular basis Skin: No rashes or lesions noted Neuro: Patient oriented x3 Extremities: Normal to inspection Results 1. Pancolitis The patient is under the care of a price accuracy supervisor and is scheduled for a follow-up appointment in March. She is expected to start treatment soon, although the specific medication has not been disclosed. 2. Crohn's Disease The patient is under the care of a price accuracy supervisor and is scheduled for a follow-up appointment in March. She is expected to start treatment soon, although the specific medication has not been disclosed. 3. Ulcerative Colitis The patient is under the care of a price accuracy supervisor and is scheduled for a follow-up appointment in March. She is expected to start treatment soon, although the specific medication has not been disclosed. 4. Anxiety The patient reports anxiety and has been prescribed hydroxyzine on an as-needed basis. 5. Vitamin B12 Deficiency The patient's laboratory results, including B12 levels, will be reviewed to assess her current status. 6. Abdominal Discomfort With Diarrhea The patient experiences frequent abdominal discomfort accompanied by diarrhea. Discussion Notes I discussed with the patient the importance of following up with her price accuracy supervisor and starting the prescribed treatment for her gastrointestinal conditions. We also addressed her anxiety, and I prescribed hydroxyzine to be taken as needed. I will review her laboratory results, including B12 levels, to ensure appropriate management of her vitamin deficiency. I do think she should qualify for SS/disability for her current diagnoses. Patient Instructions - Follow up with your price accuracy supervisor as scheduled in March. - Take hydroxyzine as needed for anxiety. - Await further instructions after lab results are reviewed. [facility] Medical History Complex cyst of right ovary Crohn's colitis Pancolitis Colitis SBO (small bowel obstruction) Bipolar 1 disorder Numbness and tingling in both hands Hx of Western blot negative for herpes simplex virus Hx of abnormal cells from cervix Surgical History H/O liposuction of abdomen Hx of tubal ligation Hx of section Family History Father Rectal cancer Colon cancer Mother History of fibromyalgia Diabetes mellitus Maternal Grandmother Diabetes mellitus Abdominal aortic aneurysm Rheumatoid arthritis Paternal Aunt Cervical cancer Social History Household Members: Children Housing: Apartment Alcohol intake: current Alcohol intake frequency: a few times a month Patient Tobacco Use Status: Former Tobacco user Cigarettes Per Day: 10 Years Smoked: 20 Packs per year/per ci.00 e-Cigarette/Vaping Use: Never Used service: No 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al status: employed 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 Sexual orientation: Straight/Heterosexual Gender identity: Female Cognitive needs: No Hearing needs: No Vision needs: No Female Reproductive History Menstrual Age of Menarche: 15 Questionnaire Thrive Questionnaire Date Thrive assessed: 09/10/24 I am a: Patient What is your living situation today?: I have a steady place to live Within the past 12 months, did the food you bought not last and you didn't have the money to get more?: Sometimes True Within the past 12 months, did you worry whether your food would run out before you got money to buy more?: Sometimes True Do you have trouble paying for medicines?: No Do you have trouble getting transportation to medical appointments?: Yes Do you have trouble paying your heating and electricity bill?: Yes Do you have trouble taking care of your child, family member or friend?: No Do you have trouble with day-to-day activities such as bathing, preparing meals, shopping, managing finances, etc.?: No Are you currently unemployed and looking for a job?: Yes Are you interested in more education?: No Please select the resources that you would like help with: None Currently or been in a relationship where the following occur: No concerns reported THRIVE Score: 4 NAT-7 AMB Questionnaire NAT-7 Date NAT - 7 assessed: 09/10/24 Source: Developed by Drs. Rhys Mace, Abigail Lloyd, Mejia Ernst and colleagues, with an educational samia from [employer]. Physical exam (Primary Care) Vital Signs: Last Vital Signs Temp 99.0 F 02/09/25 13:28 Pulse 83 02/09/25 13:28 BP 128/88 02/09/25 13:28 Pulse Ox 99 02/09/25 13:28 Oxygen Delivery Method Room Air 02/09/25 13:28 BMI result Body Mass Index 26.4 Tobacco/Smoking Status: Tobacco use Status Tobacco use date assessed 09/10/24 02/09/25 13:32 Patient Tobacco Use Status Former Tobacco user 02/09/25 13:32 e-Cigarette/Vaping Use Never Used 02/09/25 13:32 Thrive Assessment: Date of Thrive Assessment Date Thrive assessed 09/10/24 02/09/25 13:32 Currently or been in a relationship where the following occur: No concerns reported Coding Level of Care Code Est Pt Level 3 (78098) Diagnoses Crohn's colitis K50.10 Pancolitis K51.00 Low vitamin B12 level E53.8 Assessment & Plan Assessment & Plan (1) Crohn's colitis: Code(s): K50.10 - Crohn's disease of large intestine without complications Category: Medical (2) Pancolitis: Code(s): K51.00 - Ulcerative (chronic) pancolitis without complications Category: Medical (3) Low vitamin B12 level: Code(s): E53.8 - Deficiency of other specified B group vitamins Category: Medical Plan . Orders: Orders UA CC w/rflx Micro + Cult Today K50.10 - Crohn's disease of large intestine without complications, K51.00 - Ulcerative (chronic) pancolitis without complications Lipid Panel Today K50.10 - Crohn's disease of large intestine without complications, K51.00 - Ulcerative (chronic) pancolitis without complications Complete Blood Count Auto Diff Today K50.10 - Crohn's disease of large intestine without complications, K51.00 - Ulcerative (chronic) pancolitis without complications Comprehensive [place]. Panel Fast Today K50.10 - Crohn's disease of large intestine without complications, K51.00 - Ulcerative (chronic) pancolitis without complications TSH reflex Free T4 Today K50.10 - Crohn's disease of large intestine without complications, K51.00 - Ulcerative (chronic) pancolitis without complications Vitamin B12 and Folate Today E53.8 - Deficiency of other specified B group vitamins Medications: New hydroxyzine HCl 10 mg PO DAILY 30 tabs 0RF 30 days
== END 2025-02-09 14:32 | disposition home or self-care (01) ==
LOC: HO.HMCC 13:18
PROVIDERS: PCP Nurse Practitioner Family; Visit Provider Nurse Practitioner Family
DX: K50.10 Crohn's disease of large intestine without complications (principal); K51.00 Ulcerative (chronic) pancolitis without complications; E53.8 Deficiency of other specified B group vitamins

== ENCOUNTER → 2025-02-09 13:17 | Outpatient (BNVA) | payer OTHER, SELFPAY | PROVIDERS: PCP Nurse Practitioner Family; Visit Provider Nurse Practitioner Family | DX: K50.10 Crohn's disease of large intestine without complications (principal); F41.9 Anxiety disorder, unspecified; R45.851 Suicidal ideations; E53.8 Deficiency of other specified B group vitamins; R10.9 Unspecified abdominal pain; K52.9 Noninfective gastroenteritis and colitis, unspecified; Z79.899 Other long term (current) drug therapy | CPT/HCPCS: 99212 ==

== ENCOUNTER 2025-03-17 07:01 | Outpatient (AMB) | payer OTHER, SELFPAY ==
--- OUTSIDE RECORDS SUMMARY | 2025-03-12 06:54 | XMS_ITS | Clinical Summary ---
Author Organization [facility] Address [address] [place] [address] Phone Care Team Providers Care Microfilm Camera Operator Name Role Phone Maye Mitchell MD Primary Care Provider [phone] Allergies No known active allergies Medications cyanocobalamin [...] 90 each 3 06/12/19 25 026 Active hydrOXYzine HCL (ATARAX) 10 mg tablet Take 1 tablet (10 mg total) by mouth 1 (one) time each day. for 30 days 02/10/20 25 Active Active Problems Problem Noted Date Diagnosed Date Crohn's disease with complic ation (CMS/HCC V24, CMS/HCC V28) 06/20/2024 Suspected inflammatory bowel disease 04/19/2024 Heart murmur Resolved Problems Problem Noted Date Diagnosed Date Resolved Date Partial bowel obstruction (C PR/HCC V24, CMS/HCC V28) 04/12/2024 04/19/2024 Encounters Date Type Department Care Team Description 02/26/2025 9:00 AM EDT - 02/26/2025 11:59 PM EDT Hospital Encounter [facility] [address] [address] Jeff Diallo DO Crohn's disease with complication, unspecified gastrointestinal tract location ([facility] V24, [facility] V28) (Primary Dx) Discharge Disposition: Home or Self Care 01/01/2025 9:00 AM EDT - 01/01/2025 11:59 PM EDT Hospital Encounter [facility] [address] [address] Jeff Diallo DO Crohn's disease with complication, unspecified gastrointestinal tract location ([facility] V24, [facility] V28) (Primary Dx) Discharge Disposition: Home or Self Care from Last 3 Months Surgical History Surgery Date Site/Laterality Comments SECTION TUBAL LIGATION SECTION, LOW TRANSVERSE Medical History Medical History Date Comments Bowel obstruction ([facility] V24, [facility] V28) Heart murmur Colitis Social History Tobacco Use Types Packs/Day Years Used Date Smoking Tobacco: Every Day Cigarettes 0.5 6.8 Started: 05/14/2018 Smokeless Tobacco: Never Tobacco Cessation:Ready to Q uit: No Comments:Offered nicotine patch pt declined Alcohol Use Standard Drinks/Week Comments Not Currently 0 (1 standard drink = 0.6 oz pur e alcohol) Interpersonal Safety Answer Date Record ed Physical Abuse Unrecognized value 04/15/2024 Verbal Abuse Unrecognized value 04/15/2024 Comments No Sex and Gender Information Value Date Recorded Sex Assigned at Female 07/23/2024 9:49 AM EDT Legal Sex Female 11:14 AM EST Gender Identity Female 07/23/2024 9:49 AM EDT Sexual Orientation Choose not to disclose 2024 9:49 AM EDT 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 Not on file Not on file Obstetrics History Last Filed Vital Signs Vital Sign Reading Time Taken Comments Blood Pressure 132/64 02/26/2025 9:30 AM EDT Pulse 83 02/26/2025 9:30 AM EDT Temperature 36.3 C (97.3 F) 02/26/2025 9:30 AM EDT Respiratory Rate 12 02/26/2025 9:30 AM EDT Oxygen Saturation 99% 02/26/2025 9:30 AM EDT Inhaled Oxygen Concentration - - Weight 70.6 kg (155 lb 9.6 oz) 02/26/2025 9:30 A M EDT Height 165.1 cm (5' 5 ) 11/07/2024 2:24 AM EDT Body Mass Index 25.89 11/07/2024 2:24 AM EDT Plan of Treatment Upcoming Encounters Date Type Department Care Team (Late st Contact Info) Description 03/16/2025 8:20 AM EST Office Visit Gastroenterology - [address] [facility] [address] [place] [address] Stacia Pavon NP [address] [place] [address] 04/23/2025 9:00 AM EST Appointment [facility] [address] [facility] 2nd [place] [address] Health Maintenance Due Date Last Done Comments Hepatitis B Vaccines (1 of 3 - 19+ 3-dose series) 2004 Pneumococcal Vaccine: Pediatrics (0 to 5 Years) and At-Risk Patients (6 to 49 Years) (1 of 2 - PCV) 2004 Cervical Cancer Screening: Pap Smear 2006 HPV Vaccines (1 - 3-dose SCDM series) 2012 Cholesterol Screening (Lipid Panel) 04/11/2022 HIV Screening 04/11/2022 Hepatitis C Screening 04/11/2022 Social Influencers of Health Screening 04/11/2022 Depression Screening 05/14/2024 COVID-19 Vaccine ( season) 2025 07/04/2021, 06/12/2020, 05/22/2020 Influenza Vaccine (#1) 2025 , 03/29/2022, 03/24/2018, Additional history exists DTaP,Tdap,and Td Vaccines (3 - Td or Tdap) 12/16/2025 12/17/2015, 01/03/2013 RSV Immunization Adult Patients (1 - 1-dose 75+ series) 2060 HIB Vaccines Aged Out No longer eligi [...] on patient's age to complete this topic Insurance [facility] [place] [address] Advance Directives Documents on File Type Date Recorded Patient Nutter Up Expl anation Health Care Decision (hx) 09/11/2017 [...] currently active code status orders. Care Teams Microfilm Camera Operator Relationship Specialty Start Date End Date Maye Mitchell MD [address] [place] [address] , [address] [facility] D/B/A: [facility] STEPHIE Machuca PCP - General Internal Medicine 06/25/24
--- OUTSIDE RECORDS SUMMARY | 2025-03-17 07:04 | XMS_ITS | Clinical Summary ---
Author Organization [facility] Address [address] [place] [address] Phone Care Team Providers Care Goodwill Ambassador Name Role Phone Maye Mitchell MD Primary Care Provider [phone] Allergies No known active allergies Medications cyanocobalamin [...] Date Resolved Date Partial bowel obstruction (C TX/HCC V24, CMS/HCC V28) 04/12/2024 04/19/2024 Encounters Date Type Department Care Team Description 02/26/2025 9:00 AM EDT - 02/26/2025 11:59 PM EDT Hospital Encounter [facility] [address] [address] Jeff Diallo DO Crohn's disease with complication, unspecified gastrointestinal tract location ([facility] V24, [facility] V28) (Primary Dx) Discharge Disposition: Home or Self Care 01/01/2025 9:00 AM EDT - 01/01/2025 11:59 PM EDT Hospital Encounter [facility] [address] [address] Jeff Diallo DO Crohn's disease with complication, unspecified gastrointestinal tract location ([facility] V24, [facility] V28) (Primary Dx) Discharge Disposition: Home or Self Care from Last 3 Months Surgical History Surgery Date Site/Laterality Comments SECTION TUBAL LIGATION SECTION, LOW TRANSVERSE Medical History Medical History Date Comments Bowel obstruction ([facility] V24, [facility] V28) Heart murmur Colitis Anemia May Social History Tobacco Use Types Packs/Day Years [...] 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 Care Teams Goodwill Ambassador Relationship Specialty Start Date End Date Maye Mitchell MD [address] [place] [address] , [address] [facility] D[facility] STEPHIE Machuca PCP - General Internal Medicine 06/25/24
--- NOTE | 2025-03-17 07:28 | MHC.PC.OV ---
Intake Visit Reasons: EP Work Forms Allergies No Known Allergies Allergy (Verified 03/17/25 07:30) Medication List - Last Reconciled 03/17/25 by ANNABELLA Luna cyanocobalamin (vitamin B-12) 1,000 mcg IM .weekly hydroxyzine HCl 10 mg PO DAILY 30 days nicotine (Nicoderm CQ) 1 patch transdermal DAILY omeprazole 20 mg PO DAILY 90 days valacyclovir (Valtrex) 500 mg PO BID 3 days Tobacco use date assessed: 09/10/24 Dental Screening Dental Screen Date: 09/10/24 HPI EP Work Forms HPI Details History of Present Illness The patient is a 39-year-old female presenting for a telehealth follow-up to complete Social Security paperwork. The patient has a history of severe Crohn's disease and ulcerative colitis, for which she is currently under the care of a pairer odds. She reports experiencing five or more intense flares per week, characterized by bloody diarrhea, nausea, severe pain, and significant fatigue. Review of Systems - Constitutional: Reports fatigue. - Gastrointestinal: Reports bloody diarrhea and nausea. Plan 1. Crohn's Disease The patient's severe Crohn's disease is the primary reason for seeking Social Security benefits. The plan is to complete the required paperwork to support her application, as her condition is believed to qualify her for these benefits. 2. Ulcerative Colitis The patient's concurrent diagnosis of ? ulcerative colitis contributes to her debilitating symptoms and supports her case for disability. This diagnosis will be documented in the Social Security paperwork. Ongoing eval through GI Discussion Notes I expressed my opinion that the patient is a strong candidate for Social Security benefits due to the severity of her Crohn's disease and most likely ulcerative colitis. I will complete her paperwork to help support her case for disability benefits. Patient Instructions [facility] Medical History Complex cyst of right ovary Crohn's colitis Pancolitis Colitis SBO (small bowel obstruction) Bipolar 1 disorder Numbness and tingling in both hands Hx of Western blot negative for herpes simplex virus Hx of abnormal cells from cervix Surgical History H/O liposuction of abdomen Hx of tubal ligation Hx of section Family History Father Rectal cancer Colon cancer Mother History of fibromyalgia Diabetes mellitus Maternal Grandmother Diabetes mellitus Abdominal aortic aneurysm Rheumatoid arthritis Paternal Aunt Cervical cancer Social History Household Members: Children Housing: Apartment Alcohol intake: current Alcohol intake frequency: a few times a month Patient Tobacco Use Status: Former Tobacco user Cigarettes Per Day: 10 Years Smoked: 20 e-Cigarette/Vaping Use: Never Used service: No 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al status: employed 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 Sexual orientation: Straight/Heterosexual Gender identity: Female Cognitive needs: No Hearing needs: No Vision needs: No Female Reproductive History Menstrual Age of Menarche: 15 Questionnaire Thrive Questionnaire Date Thrive assessed: 09/10/24 I am a: Patient What is your living situation today?: I have a steady place to live Within the past 12 months, did the food you bought not last and you didn't have the money to get more?: Sometimes True Within the past 12 months, did you worry whether your food would run out before you got money to buy more?: Sometimes True Do you have trouble paying for medicines?: No Do you have trouble getting transportation to medical appointments?: Yes Do you have trouble paying your heating and electricity bill?: Yes Do you have trouble taking care of your child, family member or friend?: No Do you have trouble with day-to-day activities such as bathing, preparing meals, shopping, managing finances, etc.?: No Are you currently unemployed and looking for a job?: Yes Are you interested in more education?: No Please select the resources that you would like help with: None Currently or been in a relationship where the following occur: No concerns reported THRIVE Score: 4 NAT-7 AMB Questionnaire NAT-7 Date NAT - 7 assessed: 09/10/24 Source: Developed by Drs. Rhys Mace, Abigail Lloyd, Mejia Ernst and colleagues, with an educational samia from [employer]. Physical exam (Primary Care) Tobacco/Smoking Status: Tobacco use Status Tobacco use date assessed 09/10/24 02/09/25 13:32 Patient Tobacco Use Status Former Tobacco user 02/09/25 13:32 e-Cigarette/Vaping Use Never Used 02/09/25 13:32 Thrive Assessment: Date of Thrive Assessment Date Thrive assessed 09/10/24 02/09/25 14:43 Currently or been in a relationship where the following occur: No concerns reported Telehealth Telehealth Telehealth Platform: [employer] Location of provider rendering services: practice address Location of patient: address on file Patient Identification confirmed using: Name, : Yes Telehealth method: video Patient verbally consented to treatment: Yes Patient verbally consented to billing insurance company: Yes Patient informed of any privacy concerns related to visit: Yes Minutes spent on Phone/Video with Pt.: 12 Coding Level of Care Code Tele Est Pt Level 3 (90791) Diagnoses Pancolitis K51.00 Crohn's colitis K50.10 Assessment & Plan Assessment & Plan (1) Pancolitis: Code(s): K51.00 - Ulcerative (chronic) pancolitis without complications Category: Medical (2) Crohn's colitis: Code(s): K50.10 - Crohn's disease of large intestine without complications Category: Medical Plan .
== END 2025-03-17 08:12 | disposition home or self-care (01) ==
PROVIDERS: PCP Nurse Practitioner Family; Visit Provider Nurse Practitioner Family
DX: K50.10 Crohn's disease of large intestine without complications (principal)